=== PATIENT | male | born 1985 | race Caucasian/White ===

== ENCOUNTER 2019-09-04 18:48 | Inpatient (IN) | payer OTHER ==
[~2019-09-04] VITALS: Ht 175.3 cm; Wt 126.1 kg
[2019-09-04 19:43] LABS: Basophils # (auto) 0.1 10 ^3/uL (0-0.2); Basophils % (auto) 0.2 % (0.0-2.0); Eosinophils # (auto) 0 10 ^3/uL (0-0.8); Hematocrit 46.4 % (41.0-53.0); Hemoglobin 16.1 g/dL (13.5-17.5); Lymphocytes # (auto) 0.9 10 ^3/uL (0.4-5.4); Lymphocytes % (auto) 3.3 % (10.0-50.0); Mean Corpuscular Hemoglobin 33.2 pg (28.0-32.0); Mean Corpuscular Hgb Conc. 34.7 g/dL (32.0-36.0); Mean Corpuscular Volume 95.6 fL (80.0-100.0); Monocytes # (auto) 2.3 10 ^3/uL (0-1.3); Monocytes % (auto) 8.6 % (0.0-12.0); Neutrophils % (auto) 87.9 % (37.0-80.0); Nucleated Red Blood Cells % 0.2 %; Platelet Count (auto) 269 10^3/uL (140-450); Red Blood Cells 4.86 10^6/uL (4.5-5.90); Red Cell Distribution Width 14.6 % (11.8-14.3); White Blood Cell 26.2 10^3/uL (4.4-10.8)
[2019-09-04 20:03] LABS: Calcium 9.5 mg/dL (8.5-10.1); Magnesium 2.2 mg/dL (1.6-2.6); Potassium 3.5 mmol/L (3.5-5.1)
[2019-09-04 20:11] LABS: BUN/Creatinine Ratio 9.3; Bilirubin, Total 1.1 mg/dL (0.2-1.0); Total Protein 9.2 g/dL (6.4-8.2)
[2019-09-04] MEDS ORDERED: PIPERACILLIN-TAZOB 3.375GM 100 ML IV ONE (20:30)
[2019-09-04] MEDS ORDERED: VANCOMYCIN PER PHARMACY 0 MG IV SCH (20:30)
[2019-09-04] MEDS ORDERED: SODIUM CHLORIDE 0.9% 1,000 ML IV ONE (20:30)
[2019-09-04] MEDS ORDERED: VANCOMYCIN 1GM/250ML 250 ML IV ONE (21:00)
[2019-09-04 21:09] LABS: INR 1.24 (0.9-1.15); Partial Thromboplastin Time 37.3 sec (23.64-32.05)
[2019-09-04 21:13] LABS: Lactic Acid w/Reflex 5.4 mmol/L (0.4-2.0)
[2019-09-04] MEDS ORDERED: ONDANSETRON HCL 4 MG/2 ML VIAL IV ONE (22:00)
[2019-09-04] MEDS ORDERED: MORPHINE SULFATE 4 MG/ML SYR/VIAL IV ONE (22:00)
[2019-09-04] MEDS: SOD CHL 0.45% 1,000 ML IV SCH (22:33)
[2019-09-04] MEDS ORDERED: METOPROLOL TARTRATE 1MG/1ML-5ML VIAL IV SCH (22:45)
[2019-09-04] MEDS ORDERED: DEXTROSE (50%) 50ML SYRG IV PRN (22:45)
[2019-09-04] MEDS ORDERED: ACETAMINOPHEN 325 MG TAB PO PRN (22:45)
[2019-09-04] MEDS ORDERED: ONDANSETRON HCL 4 MG/2 ML VIAL IV PRN (22:45)
[2019-09-04 22:47] LABS: Urine Bacteria NONE SEEN /hpf (None Seen); Urine Blood 1+ /uL (Negative); Urine Mucus FEW (None Seen); Urine Specific Gravity 1.032 (1.001-1.035); Urine WBC 14 /hpf (0 - 3)
[2019-09-04 22:58] LABS: Amphetamine Screen, Urine NEGATIVE (NEGATIVE); Barbiturate Scree,Urine NEGATIVE (NEGATIVE); Benzodiazephine Screen, Urine NEGATIVE (NEGATIVE); Cannabinoid Screen, Urine POSITIVE (NEGATIVE); Cocaine Screen, Urine NEGATIVE (NEGATIVE); Phencyclidine Screen, Urine NEGATIVE (NEGATIVE)
[2019-09-04 23:06] LABS: Opiate Scree,Urine POSITIVE (NEGATIVE)
[2019-09-05 00:05] VITALS: BP 127/87
[2019-09-05 00:25] VITALS: BP 127/87
[2019-09-05] MEDS ORDERED: LISI-275 PO (01:08)
[2019-09-05] MEDS: HYDROcodone-ACET 5/325MG TAB PO PRN ×2 (01:47→08:52)
[2019-09-05] MEDS: InsuLIN REG 1unit/0.01ml Soln (100units/ml) SC SCH ×6 (04:00→20:00)
[2019-09-05] MEDS: ACCU-CHEK COMFORT CURVE STRIP VI SCH ×6 (04:28→19:49)
[2019-09-05] MEDS: MORPHINE SULFATE 4 MG/ML SYR/VIAL IV PRN ×3 (04:58→18:50)
[2019-09-05 05:00] VITALS: BP 143/96
[2019-09-05 05:57] LABS: Hematocrit 40.3 % (41.0-53.0); Hemoglobin 13.9 g/dL (13.5-17.5); Mean Corpuscular Hemoglobin 33.1 pg (28.0-32.0); Mean Corpuscular Hgb Conc. 34.4 g/dL (32.0-36.0); Mean Corpuscular Volume 96.2 fL (80.0-100.0); Platelet Count (auto) 207 10^3/uL (140-450); Red Blood Cells 4.19 10^6/uL (4.5-5.90); Red Cell Distribution Width 14.9 % (11.8-14.3); White Blood Cell 18.8 10^3/uL (4.4-10.8)
[2019-09-05 06:19] LABS: Potassium 4.1 mmol/L (3.5-5.1)
[2019-09-05 06:21] LABS: Basophils % (manual) 0 (0.0-2.0); Blast Cells 0; Eosinophils % (manual) 0 (0-7); Myelocytes % 0; Promyelocytes % 0; Reactive Lymphocytes 0
[2019-09-05 06:39] LABS: BUN/Creatinine Ratio 12.9
[2019-09-05 07:11] LABS: Band Neutrophils % (manual) 23; Lymphocytes % (manual) 5 (10.0-50.0); Metamyelocytes % 3; Monocytes % (manual) 4 (0-12)
[2019-09-05 07:14] LABS: Calcium 8.4 mg/dL (8.5-10.1)
[2019-09-05 08:00] VITALS: BP 127/87
[2019-09-05] MEDS ORDERED: SODIUM CHLORIDE 0.9% 500 ML IV ONE (10:00)
[2019-09-05] MEDS: LOSARTAN POTASSIUM 50 MG TAB PO SCH (10:29)
[2019-09-05] MEDS: cefTRIAXone 1GM/50ML D5W 50 ML IV SCH (10:29)
[2019-09-05] MEDS: METOPROLOL TARTRATE 25 MG TAB PO SCH ×2 (10:30→21:21)
[2019-09-05] MEDS: VANCOMYCIN 1GM/250ML 250 ML IV SCH ×2 (12:16→19:49)
[2019-09-05] MEDS ORDERED: LIDOCAINE 1% HCL (LOCAL ANESTH.) INJ 20ML MDV ONE (15:06)
[2019-09-05] MEDS ORDERED: fentaNYL CITRATE 100 MCG/2 ML VL ONE ×2 (15:14→16:44)
[2019-09-05] MEDS ORDERED: HYDROmorphone HCL 2 MG/ML VL ONE (15:14)
[2019-09-05] MEDS ORDERED: MIDAZOLAM HCL 1MG/1ML-2 ML VIAL ONE (15:15)
[2019-09-05] MEDS ORDERED: ONDANSETRON HCL 4 MG/2 ML VIAL ONE (15:15)
[2019-09-05] MEDS ORDERED: ROCURONIUM 10MG/ML 10ML VIAL IV ONE (15:15)
[2019-09-05] MEDS ORDERED: PROPOFOL 10 MG/ML 20 ML IV ONE (15:15)
[2019-09-05] MEDS ORDERED: SODIUM CHLORIDE LOCK 10 ML ONE (15:15)
[2019-09-05] MEDS ORDERED: KETAMINE HCL 10 ML ONE (15:15)
[2019-09-05] MEDS ORDERED: SUCCINYLCHOLINE 20mg/ml 100mg/5ml SYRINGE IV ONE (15:43)
[2019-09-05] MEDS ORDERED: NEOSTIGMINE 1 MG/ML INJ (10mg/10ML VIAL) IV ONE (15:43)
[2019-09-05] MEDS ORDERED: GLYCOPYRROLATE 0.2 MG/ML 1ML VIAL IV ONE (15:43)
[2019-09-05] MEDS: SOD CHL 0.45% 1,000 ML IV SCH (15:56)
[2019-09-05] MEDS ORDERED: ceFAZolin 1GM/50ML 50 ML IV ONE (16:03)
[2019-09-05] MEDS ORDERED: MORPHINE SULF(PF) 0.5MG/ML 10ML VIAL ONE (16:49)
[2019-09-05] MEDS ORDERED: LIDOCAINE 2% (LOCAL ANESTH.) PF 5ml SDV ONE (17:01)
[2019-09-05] MEDS ORDERED: HYDROmorphone HCL 2 MG/ML VL IV PRN (17:30)
[2019-09-05] MEDS ORDERED: MORPHINE SULFATE 4 MG/ML SYR/VIAL IV PRN (17:30)
[2019-09-05] MEDS ORDERED: METOCLOPRAMIDE HCL 5MG/ml INJ 2ml VIAL IV PRN (17:30)
[2019-09-05] MEDS ORDERED: fentaNYL CITRATE 100 MCG/2 ML VL IV PRN (17:30)
[2019-09-05] MEDS: ATORVASTATIN 20 MG TAB PO SCH (21:21)
[2019-09-05] MEDS: HYDROcodone-ACET 10/325MG TAB PO PRN (21:22)
[2019-09-05 22:00] VITALS: BP 135/74
[2019-09-06] MEDS: ACCU-CHEK COMFORT CURVE STRIP VI SCH ×3 (00:32→08:21)
[2019-09-06] MEDS: MORPHINE SULFATE 4 MG/ML SYR/VIAL IV PRN ×3 (00:42→19:48)
[2019-09-06] MEDS: InsuLIN REG 1unit/0.01ml Soln (100units/ml) SC SCH ×3 (04:00→08:00)
[2019-09-06] MEDS: VANCOMYCIN 1GM/250ML 250 ML IV SCH ×3 (04:15→19:39)
[2019-09-06 05:00] VITALS: BP 113/63
[2019-09-06 06:21] LABS: Basophils # (auto) 0.1 10 ^3/uL (0-0.2); Basophils % (auto) 0.3 % (0.0-2.0); Eosinophils # (auto) 0 10 ^3/uL (0-0.8); Eosinophils % (auto) 0.1 % (0.0-7.0); Hematocrit 36.7 % (41.0-53.0); Hemoglobin 12.6 g/dL (13.5-17.5); Lymphocytes # (auto) 1.1 10 ^3/uL (0.4-5.4); Lymphocytes % (auto) 6.2 % (10.0-50.0); Mean Corpuscular Hemoglobin 32.8 pg (28.0-32.0); Mean Corpuscular Hgb Conc. 34.2 g/dL (32.0-36.0); Mean Corpuscular Volume 95.7 fL (80.0-100.0); Monocytes # (auto) 1.4 10 ^3/uL (0-1.3); Monocytes % (auto) 8.4 % (0.0-12.0); Neutrophils # (auto) 14.5 10 ^3/uL (1.6-8.6); Platelet Count (auto) 225 10^3/uL (140-450); Red Blood Cells 3.84 10^6/uL (4.5-5.90); White Blood Cell 17.1 10^3/uL (4.4-10.8)
[2019-09-06 06:37] LABS: Calcium 8.2 mg/dL (8.5-10.1); Potassium 3.7 mmol/L (3.5-5.1)
[2019-09-06 06:40] LABS: BUN/Creatinine Ratio 17.3
[2019-09-06] MEDS: SOD CHL 0.45% 1,000 ML IV SCH (07:53)
[2019-09-06 09:00] VITALS: BP 119/66
[2019-09-06] MEDS: cefTRIAXone 1GM/50ML D5W 50 ML IV SCH (09:23)
[2019-09-06] MEDS: LOSARTAN POTASSIUM 50 MG TAB PO SCH (09:23)
[2019-09-06] MEDS: METOPROLOL TARTRATE 25 MG TAB PO SCH ×2 (09:23→22:23)
[2019-09-06] MEDS: HYDROcodone-ACET 10/325MG TAB PO PRN ×2 (09:45→14:33)
[2019-09-06 13:00] VITALS: BP 102/61
[2019-09-06 16:52] VITALS: BP 129/75
[2019-09-06 21:00] VITALS: BP 113/69
[2019-09-06] MEDS: ATORVASTATIN 20 MG TAB PO SCH (22:23)
[2019-09-07] VITALS (7 sets, daily range): BP systolic 116–154; BP diastolic 72–93
[2019-09-07] MEDS: MORPHINE SULFATE 4 MG/ML SYR/VIAL IV PRN ×3 (00:03→08:53)
[2019-09-07] MEDS: VANCOMYCIN 1GM/250ML 250 ML IV SCH ×3 (03:51→21:22)
[2019-09-07] MEDS: METOPROLOL TARTRATE 25 MG TAB PO SCH ×2 (04:51→23:08)
[2019-09-07 05:06] LABS: Hematocrit 39.8 % (41.0-53.0); Hemoglobin 13.6 g/dL (13.5-17.5); Mean Corpuscular Hemoglobin 32.5 pg (28.0-32.0); Mean Corpuscular Hgb Conc. 34.3 g/dL (32.0-36.0); Mean Corpuscular Volume 94.9 fL (80.0-100.0); Platelet Count (auto) 301 10^3/uL (140-450); Red Blood Cells 4.19 10^6/uL (4.5-5.90); Red Cell Distribution Width 15.1 % (11.8-14.3); White Blood Cell 26.4 10^3/uL (4.4-10.8)
[2019-09-07 05:13] LABS: Basophils % (manual) 0 (0.0-2.0); Blast Cells 0; Eosinophils % (manual) 0 (0-7); Metamyelocytes % 0; Myelocytes % 0; Promyelocytes % 0; Reactive Lymphocytes 0
[2019-09-07 05:24] LABS: BUN/Creatinine Ratio 19.4; Potassium 3.3 mmol/L (3.5-5.1)
[2019-09-07 06:40] LABS: Band Neutrophils % (manual) 43; Lymphocytes % (manual) 6 (10.0-50.0); Monocytes % (manual) 7 (0-12)
[2019-09-07] MEDS ORDERED: ceFAZolin 1GM/50ML 50 ML IV ONE (07:28)
[2019-09-07] MEDS ORDERED: MORPHINE SULF(PF) 0.5MG/ML 10ML VIAL ONE (07:28)
[2019-09-07] MEDS: LOSARTAN POTASSIUM 50 MG TAB PO SCH (10:00)
[2019-09-07] MEDS ORDERED: fentaNYL CITRATE 5 ML ONE (10:17)
[2019-09-07] MEDS ORDERED: MIDAZOLAM HCL 1MG/1ML-2 ML VIAL ONE (10:17)
[2019-09-07] MEDS ORDERED: ROCURONIUM 10MG/ML 10ML VIAL IV ONE (10:17)
[2019-09-07] MEDS ORDERED: PROPOFOL 10 MG/ML 20 ML IV ONE (11:31)
[2019-09-07] MEDS ORDERED: hydrALAZINE HCL 20 MG/ML VL IV PRN (11:45)
[2019-09-07] MEDS ORDERED: ONDANSETRON HCL 4 MG/2 ML VIAL IV PRN (11:45)
[2019-09-07] MEDS ORDERED: fentaNYL CITRATE 100 MCG/2 ML VL IV PRN (11:45)
[2019-09-07] MEDS ORDERED: ePHEDrine SULFATE 50 MG/ML AMP IV PRN (11:45)
[2019-09-07] MEDS ORDERED: MORPHINE SULF INJ 2 MG/ML SYRINGE 1ML IV PRN ×2 (12:00→12:45)
[2019-09-07] MEDS ORDERED: FOLIC ACID 1 MG in D5W 5% 50 ML IV ONE (12:45)
[2019-09-07] MEDS ORDERED: THIAMINE 100mg/ml INJ (200mg/2ml VIAL) IV ONE (12:45)
[2019-09-07] MEDS: cefTRIAXone 1GM/50ML D5W 50 ML IV SCH (13:10)
[2019-09-07] MEDS: HYDROcodone-ACET 10/325MG TAB PO PRN (13:59)
[2019-09-07] MEDS: SOD CHL 0.9%/ KCL 20MEQ 1,000 ML IV SCH (14:19)
[2019-09-07] MEDS ORDERED: HYDROmorphone HCL 2 MG/ML VL IV PRN (14:45)
[2019-09-07] MEDS ORDERED: THIAMINE HCL 100 MG TAB PO ONE (14:45)
[2019-09-07] MEDS: HYDROmorphone HCL 2 MG/ML VL IV PRN ×2 (19:11→21:22)
[2019-09-07] MEDS: ATORVASTATIN 20 MG TAB PO SCH (21:22)
[2019-09-07] MEDS: chlordiazePOXIDE HCL 25 MG CAP PO PRN (21:22)
[2019-09-08] MEDS: HYDROmorphone HCL 2 MG/ML VL IV PRN ×10 (01:32→23:07)
[2019-09-08] MEDS: SOD CHL 0.9%/ KCL 20MEQ 1,000 ML IV SCH ×2 (02:05→15:25)
[2019-09-08 05:00] VITALS: BP 132/78
[2019-09-08] MEDS: VANCOMYCIN 1GM/250ML 250 ML IV SCH ×3 (05:00→21:10)
[2019-09-08 05:40] LABS: Hematocrit 35.9 % (41.0-53.0); Hemoglobin 12.4 g/dL (13.5-17.5); Mean Corpuscular Hgb Conc. 34.6 g/dL (32.0-36.0); Mean Corpuscular Volume 95.4 fL (80.0-100.0); Platelet Count (auto) 306 10^3/uL (140-450); Red Blood Cells 3.76 10^6/uL (4.5-5.90); Red Cell Distribution Width 15.2 % (11.8-14.3); White Blood Cell 25.3 10^3/uL (4.4-10.8)
[2019-09-08 05:53] LABS: Basophils % (manual) 0 (0.0-2.0); Blast Cells 0; Eosinophils % (manual) 0 (0-7); Metamyelocytes % 0; Myelocytes % 0; Promyelocytes % 0; Reactive Lymphocytes 0
[2019-09-08 05:57] LABS: Potassium 3.4 mmol/L (3.5-5.1)
[2019-09-08 06:05] LABS: BUN/Creatinine Ratio 14.9; Calcium 7.8 mg/dL (8.5-10.1)
[2019-09-08 06:45] LABS: Band Neutrophils % (manual) 38; Lymphocytes % (manual) 11 (10.0-50.0); Monocytes % (manual) 10 (0-12)
[2019-09-08 09:00] VITALS: BP 131/89
[2019-09-08] MEDS: LOSARTAN POTASSIUM 50 MG TAB PO SCH (10:22)
[2019-09-08] MEDS: cefTRIAXone 1GM/50ML D5W 50 ML IV SCH (10:22)
[2019-09-08] MEDS: METOPROLOL TARTRATE 25 MG TAB PO SCH ×2 (10:23→21:11)
[2019-09-08] MEDS: THIAMINE 100mg/ml INJ (200mg/2ml VIAL) IV SCH (10:23)
[2019-09-08] MEDS: FOLIC ACID 1 MG in D5W 5% 50 ML IV SCH (11:14)
[2019-09-08] MEDS ORDERED: LORazepam 2MG/ML-1ML VIAL IV ONE (11:30)
[2019-09-08] MEDS ORDERED: POTASSIUM CHL 20 Meq TABLET PO ONE (11:30)
[2019-09-08 13:00] VITALS: BP 141/72
[2019-09-08] MEDS ORDERED: GADOTERIDOL 279.3mg/mL 20ml Vial IV ONE (13:37)
[2019-09-08] MEDS ORDERED: SUCCINYLCHOLINE CHLORIDE 20 MG/ML 10ML VIAL IV ONE (16:22)
[2019-09-08] MEDS ORDERED: fentaNYL CITRATE 5 ML ONE (16:26)
[2019-09-08] MEDS ORDERED: ROCURONIUM 10MG/ML 10ML VIAL IV ONE (16:26)
[2019-09-08] MEDS ORDERED: PROPOFOL 10 MG/ML 20 ML IV ONE (16:27)
[2019-09-08] MEDS ORDERED: hydrALAZINE HCL 20 MG/ML VL IV PRN (17:30)
[2019-09-08] MEDS ORDERED: ONDANSETRON HCL 4 MG/2 ML VIAL IV PRN (17:30)
[2019-09-08] MEDS ORDERED: ePHEDrine SULFATE 50 MG/ML AMP IV PRN (17:30)
[2019-09-08 19:45] VITALS: BP 155/82
[2019-09-08] MEDS: HYDROcodone-ACET 10/325MG TAB PO PRN (20:02)
[2019-09-08 22:00] VITALS: BP 130/86
[2019-09-08] MEDS: chlordiazePOXIDE HCL 25 MG CAP PO PRN (22:17)
[2019-09-09] MEDS: HYDROmorphone HCL 2 MG/ML VL IV PRN ×10 (02:01→23:30)
[2019-09-09] MEDS: SOD CHL 0.9%/ KCL 20MEQ 1,000 ML IV SCH ×2 (02:01→18:05)
[2019-09-09] MEDS: VANCOMYCIN 1GM/250ML 250 ML IV SCH (05:21)
[2019-09-09 05:49] VITALS: BP 148/76
[2019-09-09 06:33] LABS: Hematocrit 33.8 % (41.0-53.0); Hemoglobin 11.5 g/dL (13.5-17.5); Mean Corpuscular Hemoglobin 32.3 pg (28.0-32.0); Mean Corpuscular Hgb Conc. 34.1 g/dL (32.0-36.0); Mean Corpuscular Volume 94.7 fL (80.0-100.0); Platelet Count (auto) 329 10^3/uL (140-450); Red Blood Cells 3.57 10^6/uL (4.5-5.90); Red Cell Distribution Width 15.7 % (11.8-14.3); White Blood Cell 21.3 10^3/uL (4.4-10.8)
[2019-09-09 06:48] LABS: Basophils % (manual) 0 (0.0-2.0); Blast Cells 0; Eosinophils % (manual) 0 (0-7); Metamyelocytes % 0; Myelocytes % 0; Promyelocytes % 0; Reactive Lymphocytes 0
[2019-09-09 06:50] LABS: BUN/Creatinine Ratio 15.2; Calcium 8.4 mg/dL (8.5-10.1); Potassium 3.6 mmol/L (3.5-5.1)
[2019-09-09 07:34] LABS: Band Neutrophils % (manual) 11; Lymphocytes % (manual) 12 (10.0-50.0); Monocytes % (manual) 12 (0-12)
[2019-09-09 08:58] VITALS: BP 135/77
[2019-09-09] MEDS: METOPROLOL TARTRATE 25 MG TAB PO SCH ×2 (09:34→22:21)
[2019-09-09] MEDS: cefTRIAXone 1GM/50ML D5W 50 ML IV SCH (09:34)
[2019-09-09] MEDS: THIAMINE 100mg/ml INJ (200mg/2ml VIAL) IV SCH (09:35)
[2019-09-09] MEDS: LOSARTAN POTASSIUM 50 MG TAB PO SCH (09:35)
[2019-09-09] MEDS: FOLIC ACID 1 MG in D5W 5% 50 ML IV SCH (11:03)
[2019-09-09] MEDS ORDERED: CLINDAMYCIN 900MG IV 50 ML IV ONE (12:15)
[2019-09-09] MEDS: ceFAZolin 1GM/50ML 50 ML IV SCH ×2 (12:24→17:33)
[2019-09-09 13:00] VITALS: BP 109/74
[2019-09-09] MEDS: CLINDAMYCIN 900MG IV 50 ML IV SCH ×2 (14:11→22:10)
[2019-09-09] MEDS: HYDROcodone-ACET 10/325MG TAB PO PRN ×2 (16:13→22:11)
[2019-09-09 16:38] VITALS: BP 131/64
[2019-09-09 22:00] VITALS: BP 100/80
[2019-09-10] VITALS (7 sets, daily range): BP systolic 111–150; BP diastolic 56–84
[2019-09-10] MEDS: ceFAZolin 1GM/50ML 50 ML IV SCH ×5 (00:30→23:51)
[2019-09-10] MEDS: HYDROmorphone HCL 2 MG/ML VL IV PRN ×12 (02:43→20:36)
[2019-09-10 06:01] LABS: Basophils # (auto) 0.1 10 ^3/uL (0-0.2); Basophils % (auto) 0.4 % (0.0-2.0); Eosinophils # (auto) 0.2 10 ^3/uL (0-0.8); Eosinophils % (auto) 0.8 % (0.0-7.0); Hematocrit 34.2 % (41.0-53.0); Hemoglobin 11.9 g/dL (13.5-17.5); Lymphocytes # (auto) 2.5 10 ^3/uL (0.4-5.4); Lymphocytes % (auto) 11.3 % (10.0-50.0); Mean Corpuscular Hemoglobin 33.1 pg (28.0-32.0); Mean Corpuscular Hgb Conc. 34.9 g/dL (32.0-36.0); Mean Corpuscular Volume 94.8 fL (80.0-100.0); Monocytes % (auto) 8.8 % (0.0-12.0); Neutrophils # (auto) 17.7 10 ^3/uL (1.6-8.6); Neutrophils % (auto) 78.7 % (37.0-80.0); Nucleated Red Blood Cells % 0.2 %; Platelet Count (auto) 400 10^3/uL (140-450); Red Blood Cells 3.61 10^6/uL (4.5-5.90); Red Cell Distribution Width 15.5 % (11.8-14.3); White Blood Cell 22.5 10^3/uL (4.4-10.8)
[2019-09-10] MEDS: SOD CHL 0.9%/ KCL 20MEQ 1,000 ML IV SCH (06:04)
[2019-09-10] MEDS: CLINDAMYCIN 900MG IV 50 ML IV SCH ×3 (06:04→21:27)
[2019-09-10 06:20] LABS: Potassium 3.5 mmol/L (3.5-5.1)
[2019-09-10 06:33] LABS: BUN/Creatinine Ratio 12.6; Calcium 8.4 mg/dL (8.5-10.1)
[2019-09-10] MEDS ORDERED: PROPOFOL 10 MG/ML 20 ML IV ONE (08:38)
[2019-09-10] MEDS ORDERED: DexAMETHasone SOD PHOS 10MG/1ML VIAL INJ ONE (08:38)
[2019-09-10] MEDS ORDERED: LIDOCAINE 2% (LOCAL ANESTH.) PF 5ml SDV ONE (08:38)
[2019-09-10] MEDS ORDERED: ONDANSETRON HCL 4 MG/2 ML VIAL ONE (08:38)
[2019-09-10] MEDS ORDERED: MIDAZOLAM HCL 1MG/1ML-2 ML VIAL ONE (08:38)
[2019-09-10] MEDS ORDERED: fentaNYL CITRATE 100 MCG/2 ML VL ONE (08:39)
[2019-09-10] MEDS ORDERED: ceFAZolin 1GM/50ML 50 ML IV ONE ×2 (08:47→08:48)
[2019-09-10] MEDS ORDERED: KETOROLAC TROMETH 60MG/2ML VIAL ONE (09:59)
[2019-09-10] MEDS ORDERED: ONDANSETRON HCL 4 MG/2 ML VIAL IV PRN (10:30)
[2019-09-10] MEDS ORDERED: METOCLOPRAMIDE HCL 5MG/ml INJ 2ml VIAL IV PRN (10:30)
[2019-09-10] MEDS ORDERED: ePHEDrine SULFATE 50 MG/ML AMP IV PRN (10:30)
[2019-09-10] MEDS ORDERED: LABETALOL HCL 5 MG/ML 4ML SYRINGE IV PRN (10:30)
[2019-09-10] MEDS ORDERED: hydrALAZINE HCL 20 MG/ML VL IV PRN (10:30)
[2019-09-10] MEDS ORDERED: NALOXONE HCL 0.4 MG/ML VIAL IV PRN (10:30)
[2019-09-10] MEDS: OXYCODONE W/ ACETAMINOPHEN 5/325MG TABLET PO PRN ×2 (12:54→17:11)
[2019-09-10] MEDS: THIAMINE HCL 100 MG TAB PO SCH (12:55)
[2019-09-10] MEDS: LOSARTAN POTASSIUM 50 MG TAB PO SCH (12:57)
[2019-09-10] MEDS: FLORASTOR (S. BOULARDII) 250 MG CAP PO SCH (12:57)
[2019-09-10] MEDS: METOPROLOL TARTRATE 25 MG TAB PO SCH ×2 (12:58→21:28)
[2019-09-10] MEDS: FOLIC ACID 1 MG in D5W 5% 50 ML IV SCH (13:11)
[2019-09-10] MEDS: DOCUSATE SOD 100 MG CAP PO PRN (20:37)
[2019-09-11] VITALS (7 sets, daily range): BP systolic 87–113; BP diastolic 48–66
[2019-09-11] MEDS ORDERED: SODIUM CHLORIDE 0.9% 2,000 ML IV ONE (00:15)
[2019-09-11] MEDS: OXYCODONE W/ ACETAMINOPHEN 5/325MG TABLET PO PRN (02:38)
[2019-09-11] MEDS ORDERED: SODIUM CHLORIDE 0.9% 1,000 ML IV ONE (05:15)
[2019-09-11] MEDS: ceFAZolin 1GM/50ML 50 ML IV SCH ×3 (05:40→17:59)
[2019-09-11] MEDS: CLINDAMYCIN 900MG IV 50 ML IV SCH ×3 (06:18→22:08)
[2019-09-11 06:44] LABS: Hematocrit 27.7 % (41.0-53.0); Hemoglobin 9.4 g/dL (13.5-17.5); Mean Corpuscular Hemoglobin 32.1 pg (28.0-32.0); Mean Corpuscular Hgb Conc. 33.8 g/dL (32.0-36.0); Mean Corpuscular Volume 94.9 fL (80.0-100.0); Platelet Count (auto) 399 10^3/uL (140-450); Red Blood Cells 2.92 10^6/uL (4.5-5.90); Red Cell Distribution Width 15.4 % (11.8-14.3)
[2019-09-11 07:01] LABS: White Blood Cell 40.3 10^3/uL (4.4-10.8)
[2019-09-11 07:03] LABS: Basophils % (manual) 0 (0.0-2.0); Blast Cells 0; Eosinophils % (manual) 0 (0-7); Metamyelocytes % 0; Myelocytes % 0; Promyelocytes % 0; Reactive Lymphocytes 0
[2019-09-11] MEDS: HYDROmorphone HCL 2 MG/ML VL IV PRN ×8 (07:04→23:05)
[2019-09-11 08:51] LABS: Band Neutrophils % (manual) 20; Lymphocytes % (manual) 4 (10.0-50.0); Monocytes % (manual) 1 (0-12)
[2019-09-11] MEDS: THIAMINE HCL 100 MG TAB PO SCH (09:15)
[2019-09-11] MEDS: FLORASTOR (S. BOULARDII) 250 MG CAP PO SCH (09:15)
[2019-09-11] MEDS: LOSARTAN POTASSIUM 50 MG TAB PO SCH (09:17)
[2019-09-11] MEDS: METOPROLOL TARTRATE 25 MG TAB PO SCH ×2 (09:18→22:09)
[2019-09-11 10:05] LABS: Albumin 1.5 g/dL (3.4-5.0); Calcium 7.2 mg/dL (8.5-10.1); Potassium 4.5 mmol/L (3.5-5.1)
[2019-09-11 10:08] LABS: BUN/Creatinine Ratio 13.4; Bilirubin, Total 1.3 mg/dL (0.2-1.0); Total Protein 5.8 g/dL (6.4-8.2)
[2019-09-11] MEDS: FOLIC ACID 1 MG in D5W 5% 50 ML IV SCH (11:20)
[2019-09-11] MEDS: SODIUM CHLORIDE 0.9% 1,000 ML IV SCH (14:23)
[2019-09-11 17:30] LABS: Hematocrit 28.6 % (41.0-53.0); Hemoglobin 9.6 g/dL (13.5-17.5); Mean Corpuscular Hemoglobin 31.9 pg (28.0-32.0); Mean Corpuscular Hgb Conc. 33.4 g/dL (32.0-36.0); Mean Corpuscular Volume 95.4 fL (80.0-100.0); Platelet Count (auto) 442 10^3/uL (140-450); Red Cell Distribution Width 16.1 % (11.8-14.3)
[2019-09-11 17:34] LABS: White Blood Cell 37.9 10^3/uL (4.4-10.8)
[2019-09-11 17:35] LABS: Basophils % (manual) 0 (0.0-2.0); Blast Cells 0; Eosinophils % (manual) 0 (0-7); Myelocytes % 0; Promyelocytes % 0; Reactive Lymphocytes 0
[2019-09-11 17:49] LABS: BUN/Creatinine Ratio 19.1; Calcium 7.1 mg/dL (8.5-10.1); Potassium 3.7 mmol/L (3.5-5.1)
[2019-09-11 18:27] LABS: Band Neutrophils % (manual) 11; Lymphocytes % (manual) 13 (10.0-50.0); Metamyelocytes % 2; Monocytes % (manual) 1 (0-12)
[2019-09-12] MEDS: ceFAZolin 1GM/50ML 50 ML IV SCH ×4 (00:17→18:40)
[2019-09-12] MEDS: SODIUM CHLORIDE 0.9% 1,000 ML IV SCH ×3 (00:29→21:45)
[2019-09-12] MEDS: HYDROmorphone HCL 2 MG/ML VL IV PRN ×7 (02:01→20:03)
[2019-09-12 05:00] VITALS: BP 112/71
[2019-09-12] MEDS: CLINDAMYCIN 900MG IV 50 ML IV SCH ×3 (05:40→21:14)
[2019-09-12 06:28] LABS: Hematocrit 25.6 % (41.0-53.0); Hemoglobin 8.8 g/dL (13.5-17.5); Mean Corpuscular Hemoglobin 32.7 pg (28.0-32.0); Mean Corpuscular Hgb Conc. 34.5 g/dL (32.0-36.0); Mean Corpuscular Volume 94.8 fL (80.0-100.0); Platelet Count (auto) 418 10^3/uL (140-450); Red Cell Distribution Width 15.5 % (11.8-14.3); White Blood Cell 29.7 10^3/uL (4.4-10.8)
[2019-09-12 06:29] LABS: Basophils % (manual) 0 (0.0-2.0); Blast Cells 0; Metamyelocytes % 0; Myelocytes % 0; Promyelocytes % 0; Reactive Lymphocytes 0
[2019-09-12 06:47] LABS: Potassium 3.5 mmol/L (3.5-5.1)
[2019-09-12 06:54] LABS: Albumin 1.5 g/dL (3.4-5.0); BUN/Creatinine Ratio 21.7; Bilirubin, Total 0.6 mg/dL (0.2-1.0); Total Protein 6.1 g/dL (6.4-8.2)
[2019-09-12 07:32] LABS: Band Neutrophils % (manual) 2; Eosinophils % (manual) 1 (0-7); Lymphocytes % (manual) 5 (10.0-50.0); Monocytes % (manual) 4 (0-12)
[2019-09-12 08:00] VITALS: BP 109/62
[2019-09-12 08:50] VITALS: BP 109/62
[2019-09-12] MEDS: LOSARTAN POTASSIUM 50 MG TAB PO SCH (10:00)
[2019-09-12] MEDS: METOPROLOL TARTRATE 25 MG TAB PO SCH (10:00)
[2019-09-12] MEDS: FLORASTOR (S. BOULARDII) 250 MG CAP PO SCH (10:32)
[2019-09-12] MEDS: FOLIC ACID 1 MG in D5W 5% 50 ML IV SCH (10:33)
[2019-09-12] MEDS: THIAMINE HCL 100 MG TAB PO SCH (10:33)
[2019-09-12 12:54] VITALS: BP 131/72
[2019-09-12 17:00] VITALS: BP 122/71
[2019-09-12 21:01] VITALS: BP 117/68
[2019-09-12] MEDS: OXYCODONE W/ ACETAMINOPHEN 5/325MG TABLET PO PRN (21:22)
[2019-09-13] MEDS: HYDROmorphone HCL 2 MG/ML VL IV PRN ×9 (00:06→23:21)
[2019-09-13] MEDS: ceFAZolin 1GM/50ML 50 ML IV SCH ×4 (00:06→18:04)
[2019-09-13 05:05] VITALS: BP 127/64
[2019-09-13 05:40] LABS: Eosinophils # (auto) 0.1 10 ^3/uL (0-0.8); Eosinophils % (auto) 0.4 % (0.0-7.0); Neutrophils # (auto) 15.6 10 ^3/uL (1.6-8.6)
[2019-09-13 05:43] LABS: Basophils # (auto) 0.1 10 ^3/uL (0-0.2); Basophils % (auto) 0.3 % (0.0-2.0); Hematocrit 26.1 % (41.0-53.0); Lymphocytes # (auto) 2.1 10 ^3/uL (0.4-5.4); Lymphocytes % (auto) 11.3 % (10.0-50.0); Mean Corpuscular Hemoglobin 32.7 pg (28.0-32.0); Mean Corpuscular Hgb Conc. 34.6 g/dL (32.0-36.0); Mean Corpuscular Volume 94.6 fL (80.0-100.0); Monocytes # (auto) 0.9 10 ^3/uL (0-1.3); Monocytes % (auto) 4.8 % (0.0-12.0); Neutrophils % (auto) 83.2 % (37.0-80.0); Nucleated Red Blood Cells % 0.1 %; Platelet Count (auto) 479 10^3/uL (140-450); Red Blood Cells 2.76 10^6/uL (4.5-5.90); Red Cell Distribution Width 15.8 % (11.8-14.3); White Blood Cell 18.8 10^3/uL (4.4-10.8)
[2019-09-13] MEDS: SODIUM CHLORIDE 0.9% 1,000 ML IV SCH ×2 (05:43→14:37)
[2019-09-13 05:58] LABS: Potassium 4.1 mmol/L (3.5-5.1)
[2019-09-13 06:05] LABS: Albumin 1.5 g/dL (3.4-5.0); BUN/Creatinine Ratio 13.6; Bilirubin, Total 0.5 mg/dL (0.2-1.0); Calcium 7.2 mg/dL (8.5-10.1); Total Protein 6.2 g/dL (6.4-8.2)
[2019-09-13] MEDS: CLINDAMYCIN 900MG IV 50 ML IV SCH (06:22)
[2019-09-13 08:30] VITALS: BP 137/83
[2019-09-13] MEDS: FOLIC ACID 1 MG in D5W 5% 50 ML IV SCH (09:55)
[2019-09-13] MEDS: THIAMINE HCL 100 MG TAB PO SCH (09:55)
[2019-09-13] MEDS: FLORASTOR (S. BOULARDII) 250 MG CAP PO SCH (09:55)
[2019-09-13 13:11] VITALS: BP 144/84
[2019-09-13] MEDS: CLINDAMYCIN 600MG IV 50 ML IV SCH ×2 (14:37→22:16)
[2019-09-13] MEDS: OXYCODONE W/ ACETAMINOPHEN 5/325MG TABLET PO PRN (14:51)
[2019-09-13 16:39] VITALS: BP 131/72
[2019-09-13 22:00] VITALS: BP 135/83
[2019-09-14] MEDS: ceFAZolin 1GM/50ML 50 ML IV SCH ×3 (00:31→11:26)
[2019-09-14] MEDS: OXYCODONE W/ ACETAMINOPHEN 5/325MG TABLET PO PRN ×2 (01:11→14:22)
[2019-09-14] MEDS: SODIUM CHLORIDE 0.9% 1,000 ML IV SCH (02:46)
[2019-09-14] MEDS: HYDROmorphone HCL 2 MG/ML VL IV PRN ×7 (02:47→22:25)
[2019-09-14 05:00] VITALS: BP 126/82
[2019-09-14] MEDS: CLINDAMYCIN 600MG IV 50 ML IV SCH ×2 (06:25→13:26)
[2019-09-14 06:41] LABS: Hematocrit 27.9 % (41.0-53.0); Hemoglobin 9.5 g/dL (13.5-17.5); Red Cell Distribution Width 15.7 % (11.8-14.3)
[2019-09-14 06:42] LABS: Mean Corpuscular Hemoglobin 32.4 pg (28.0-32.0); Mean Corpuscular Hgb Conc. 34.1 g/dL (32.0-36.0); Mean Corpuscular Volume 94.9 fL (80.0-100.0); Platelet Count (auto) 625 10^3/uL (140-450); Red Blood Cells 2.94 10^6/uL (4.5-5.90); White Blood Cell 15.3 10^3/uL (4.4-10.8)
[2019-09-14 06:45] LABS: Basophils % (manual) 0 (0.0-2.0); Metamyelocytes % 0; Promyelocytes % 0
[2019-09-14 06:46] LABS: Blast Cells 0; Reactive Lymphocytes 0
[2019-09-14 06:55] LABS: Albumin 1.8 g/dL (3.4-5.0); Calcium 7.6 mg/dL (8.5-10.1); Potassium 4.1 mmol/L (3.5-5.1)
[2019-09-14 06:59] LABS: BUN/Creatinine Ratio 7.1; Bilirubin, Total 0.5 mg/dL (0.2-1.0); Total Protein 6.9 g/dL (6.4-8.2)
[2019-09-14 07:25] LABS: Band Neutrophils % (manual) 1; Eosinophils % (manual) 2 (0-7); Lymphocytes % (manual) 13 (10.0-50.0); Monocytes % (manual) 7 (0-12); Myelocytes % 1
[2019-09-14 08:00] VITALS: BP 144/75
[2019-09-14 09:18] VITALS: BP 144/75
[2019-09-14] MEDS: FOLIC ACID 1 MG TAB PO SCH (09:41)
[2019-09-14] MEDS: FLORASTOR (S. BOULARDII) 250 MG CAP PO SCH (09:41)
[2019-09-14] MEDS: DOCUSATE SOD 100 MG CAP PO PRN (09:41)
[2019-09-14] MEDS: THIAMINE HCL 100 MG TAB PO SCH (09:41)
[2019-09-14] MEDS ORDERED: POTASSIUM CHL 20 Meq TABLET PO ONE (13:45)
[2019-09-14] MEDS ORDERED: FUROSEMIDE 20 MG/2 ML VIAL IV ONE (13:45)
[2019-09-14 14:16] VITALS: BP 134/80
[2019-09-14] MEDS: CEPHALEXIN 250 MG CAP PO SCH ×2 (14:21→22:33)
[2019-09-14] MEDS: CLINDAMYCIN HCL 150 MG CAP PO SCH ×2 (14:21→22:33)
[2019-09-14 22:13] VITALS: BP 137/85
[2019-09-15] MEDS: OXYCODONE W/ ACETAMINOPHEN 5/325MG TABLET PO PRN ×3 (00:13→10:35)
[2019-09-15] MEDS: HYDROmorphone HCL 2 MG/ML VL IV PRN ×7 (01:35→20:52)
[2019-09-15 05:00] VITALS: BP 135/84
[2019-09-15] MEDS: CEPHALEXIN 250 MG CAP PO SCH (05:43)
[2019-09-15] MEDS: CLINDAMYCIN HCL 150 MG CAP PO SCH ×3 (05:43→21:03)
[2019-09-15 07:32] LABS: White Blood Cell 16.2 10^3/uL (4.4-10.8)
[2019-09-15 07:37] LABS: Hematocrit 27.8 % (41.0-53.0); Hemoglobin 9.4 g/dL (13.5-17.5); Mean Corpuscular Hemoglobin 31.9 pg (28.0-32.0); Mean Corpuscular Hgb Conc. 33.7 g/dL (32.0-36.0); Mean Corpuscular Volume 94.7 fL (80.0-100.0); Platelet Count (auto) 700 10^3/uL (140-450); Red Blood Cells 2.94 10^6/uL (4.5-5.90); Red Cell Distribution Width 15.8 % (11.8-14.3)
[2019-09-15 07:42] LABS: Basophils % (manual) 0 (0.0-2.0); Blast Cells 0; Metamyelocytes % 0; Promyelocytes % 0; Reactive Lymphocytes 0
[2019-09-15 07:54] LABS: Calcium 8.4 mg/dL (8.5-10.1); Potassium 4.3 mmol/L (3.5-5.1)
[2019-09-15 07:58] LABS: Bilirubin, Total 0.6 mg/dL (0.2-1.0); Total Protein 7.2 g/dL (6.4-8.2)
[2019-09-15 08:08] LABS: Band Neutrophils % (manual) 1; Eosinophils % (manual) 2 (0-7); Lymphocytes % (manual) 25 (10.0-50.0); Monocytes % (manual) 7 (0-12); Myelocytes % 1
[2019-09-15 09:00] VITALS: BP 133/89
[2019-09-15] MEDS: FOLIC ACID 1 MG TAB PO SCH (10:34)
[2019-09-15] MEDS: THIAMINE HCL 100 MG TAB PO SCH (10:34)
[2019-09-15] MEDS: FLORASTOR (S. BOULARDII) 250 MG CAP PO SCH (10:34)
[2019-09-15] MEDS: DOCUSATE SOD 100 MG CAP PO PRN (10:36)
[2019-09-15] MEDS ORDERED: FUROSEMIDE 40 MG/4 ML VIAL IV ONE (11:45)
[2019-09-15] MEDS ORDERED: POTASSIUM CHL 20 Meq TABLET PO ONE (11:45)
[2019-09-15 13:00] VITALS: BP 143/83
[2019-09-15] MEDS ORDERED: FUROSEMIDE 100 MG/10ML VIAL IV ONE (13:45)
[2019-09-15 17:00] VITALS: BP 137/74
[2019-09-15 18:34] LABS: Eosinophils # (auto) 0.1 10 ^3/uL (0-0.8); Eosinophils % (auto) 0.5 % (0.0-7.0); Mean Corpuscular Volume 95.9 fL (80.0-100.0)
[2019-09-15 18:36] LABS: Basophils # (auto) 0.2 10 ^3/uL (0-0.2); Basophils % (auto) 1.1 % (0.0-2.0); Hematocrit 29.7 % (41.0-53.0); Hemoglobin 9.8 g/dL (13.5-17.5); Lymphocytes # (auto) 3.2 10 ^3/uL (0.4-5.4); Mean Corpuscular Hemoglobin 31.5 pg (28.0-32.0); Mean Corpuscular Hgb Conc. 32.9 g/dL (32.0-36.0); Monocytes # (auto) 1.5 10 ^3/uL (0-1.3); Neutrophils # (auto) 13.7 10 ^3/uL (1.6-8.6); Neutrophils % (auto) 73.4 % (37.0-80.0); Platelet Count (auto) 746 10^3/uL (140-450); White Blood Cell 18.6 10^3/uL (4.4-10.8)
[2019-09-15 22:07] VITALS: BP 138/79
[2019-09-16] MEDS: HYDROmorphone HCL 2 MG/ML VL IV PRN ×5 (00:23→14:48)
[2019-09-16] MEDS: HYDROcodone-ACET 5/325MG TAB PO PRN ×2 (02:11→13:58)
[2019-09-16 05:30] VITALS: BP 149/88
[2019-09-16 06:19] LABS: Basophils # (auto) 0.1 10 ^3/uL (0-0.2); Basophils % (auto) 0.7 % (0.0-2.0); Eosinophils # (auto) 0.1 10 ^3/uL (0-0.8); Eosinophils % (auto) 0.4 % (0.0-7.0); Hematocrit 29.5 % (41.0-53.0); Hemoglobin 10.1 g/dL (13.5-17.5); Lymphocytes # (auto) 2.6 10 ^3/uL (0.4-5.4); Lymphocytes % (auto) 16.2 % (10.0-50.0); Mean Corpuscular Hgb Conc. 34.4 g/dL (32.0-36.0); Mean Corpuscular Volume 95.9 fL (80.0-100.0); Monocytes # (auto) 1.2 10 ^3/uL (0-1.3); Monocytes % (auto) 7.4 % (0.0-12.0); Neutrophils # (auto) 12.2 10 ^3/uL (1.6-8.6); Neutrophils % (auto) 75.3 % (37.0-80.0); Nucleated Red Blood Cells % 0.1 %; Red Blood Cells 3.07 10^6/uL (4.5-5.90); White Blood Cell 16.2 10^3/uL (4.4-10.8)
[2019-09-16 06:24] LABS: Platelet Count (auto) 790 10^3/uL (140-450)
[2019-09-16] MEDS: CLINDAMYCIN HCL 150 MG CAP PO SCH ×2 (06:35→14:45)
[2019-09-16 06:37] LABS: Potassium 4.2 mmol/L (3.5-5.1)
[2019-09-16 06:48] LABS: Albumin 2.2 g/dL (3.4-5.0); BUN/Creatinine Ratio 7.5; Calcium 9.2 mg/dL (8.5-10.1)
[2019-09-16 06:51] LABS: Bilirubin, Total 0.5 mg/dL (0.2-1.0); Total Protein 7.4 g/dL (6.4-8.2)
[2019-09-16 09:00] VITALS: BP 129/77
[2019-09-16] MEDS ORDERED: levoFLOXacin 500 MG TAB PO SCH (10:00)
[2019-09-16] MEDS: FOLIC ACID 1 MG TAB PO SCH (10:19)
[2019-09-16] MEDS: THIAMINE HCL 100 MG TAB PO SCH (10:19)
[2019-09-16] MEDS: FLORASTOR (S. BOULARDII) 250 MG CAP PO SCH (10:20)
[2019-09-16 13:00] VITALS: BP 132/85
[2019-09-16 14:09] VITALS: BP 133/89
== END 2019-09-16 16:25 | disposition home or self-care (01) | DRG 853 ==
LOC: EDBD 18:48 → ER 18:48 → TELE 18:49 → TELE-EAST 23:25 → TELE-WESTW 09-05 22:29 → WEST WING 09-13 14:03
PROVIDERS: ADMIT Hospitalist; ATTEND Internal Medicine
PROC: 0SBC4ZX Excision of Right Knee Joint, Percutaneous Endoscopic Approach, Diagnostic (ICD-10-PCS; principal; 2019-09-05 15:53)
PROC: 0KBQ0ZZ Excision of Right Upper Leg Muscle, Open Approach (ICD-10-PCS; 2019-09-08)
PROC: 0S9C4ZX Drainage of Right Knee Joint, Percutaneous Endoscopic Approach, Diagnostic (ICD-10-PCS; 2019-09-10)
DX: A41.9 Sepsis, unspecified organism (principal); N17.0 Acute kidney failure with tubular necrosis; M00.9 Pyogenic arthritis, unspecified; E87.1 Hypo-osmolality and hyponatremia; E44.0 Moderate protein-calorie malnutrition; L03.115 Cellulitis of right lower limb; Z68.41 Body mass index [BMI] 40.0-44.9, adult; F10.10 Alcohol abuse, uncomplicated; K76.0 Fatty (change of) liver, not elsewhere classified; R73.9 Hyperglycemia, unspecified; M25.561 Pain in right knee; E66.01 Morbid (severe) obesity due to excess calories; M65.9 Synovitis and tenosynovitis, unspecified; N18.9 Chronic kidney disease, unspecified; I12.9 Hypertensive chronic kidney disease with stage 1 through stage 4 chronic kidney disease, or unspecified chronic kidney disease; M60.9 Myositis, unspecified; Z79.899 Other long term (current) drug therapy; Z90.49 Acquired absence of other specified parts of digestive tract; Z79.4 Long term (current) use of insulin
CPT/HCPCS: 36415; 71045; 73700; 73718; 74176; 80048; 80053; 80061; 80202; 80307; 81001; 82962; 83036; 83605; 83735; 83880; 84443; 84484; 84550; 85007; 85025; 85027; 85610; 85652; 85730; 86141; 86850; 86900; 86901; 87040; 87070; 87075; 87205; 93005; 93306; 93970; 96365; 96367; 96375; 97110; 97116; 97163; 97530; G0378; J0330; J0690; J0696; J1100; J1885; J2001; J2250; J2405; J2543; J2704; J3490; J7060

== ENCOUNTER 2024-07-16 11:39 | Emergency (ER) | payer OTHER ==
[~2024-07-16] VITALS: Ht 180.3 cm; Wt 81.1 kg
[~2024-07-16 11:39] MED LIST: LISI-275 PO
[2024-07-16 11:50] VITALS: BP 137/81; RESP 20; O2SAT 99
[2024-07-16 11:53] VITALS: PULSE 85
--- NOTE | 2024-07-16 11:58 | ECG ---
[facility] Test Date: 2024-07-16 Test Time: 11:53:38 Pat Name: CORDELL PRADO Department: ER Room: Gender: Cut Out Marker: DAJUAN : 1985 Requested By: LUIS QUINTANA Order Number: [id number] Reading MD: Levi Seth Measurements Intervals [place] Rate: 85 P: 67 LA: 152 QRS: -37 QRSD: 111 T: 57 QT: 373 QTc: 444 Interpretive Statements Sinus rhythm Left ventricular hypertrophy ST elev, probable normal early repol pattern Baseline wander in lead(s) V1 Electronically Signed On 07-18-2024 8:24:38 PST by Levi Seth Please click the below link to view image of tracing.
--- NOTE | 2024-07-16 12:29 | DVH ---
EXAM: CT HEAD WITHOUT CONTRAST INDICATION: DIZZINESS TECHNIQUE: CT of the head without intravenous contrast. Radiation Dose : 1. Head: CT Dose: CTDI volume is 53.99 mGy. Dose-length product is 863.9 mGy*cm The dose indicators for CT are the volume Computed Tomography (CT) Dose Index (CTDIvol) and the Dose Length Product (DLP), and are measured in units of mGy and mGy-cm, respectively. These indicators are not patient dose, but values generated from the CT scanner acquisition factors. The report includes radiation exposure data for exposures received during this examination. COMPARISON: None FINDINGS: There is no evidence of acute intracranial hemorrhage, extra-axial collection, mass effect, midline s hift, herniation or hydrocephalus. The ventricles, sulci and cisterns are age appropriate. The browning-white differentiation is intact. Patchy periventricular and subcortical white matter hypoattenuation is nonspecific but may be related to small vessel ischemic disease. The visualized paranasal sinuses and mastoid air cells are clear. The surrounding soft tissues and osseous structures are unremarkable. IMPRESSION: 1. No acute intracranial abnormality. Radiation optimization: All CT scans at this facility use at least one of these dose optimization tracy hniques: automated exposure control mA and/or kV adjustment per patient size (includes targeted exam s where dose is matched to clinical indication) or iterative reconstruction.
[2024-07-16 13:24] LABS: Basophils # (auto) 0 10 ^3/uL (0-0.2); Basophils % (auto) 0.3 % (0.0-2.0); Eosinophils # (auto) 0 10 ^3/uL (0-0.8); Hematocrit 46.1 % (41.0-53.0); Hemoglobin 15.6 g/dL (13.5-17.5); Lymphocytes # (auto) 1.5 10 ^3/uL (0.4-5.4); Lymphocytes % (auto) 13.5 % (10.0-50.0); Mean Corpuscular Hgb Conc. 33.9 g/dL (32.0-36.0); Mean Corpuscular Volume 94.1 fL (80.0-100.0); Monocytes # (auto) 0.9 10 ^3/uL (0-1.3); Neutrophils # (auto) 8.5 10 ^3/uL (1.6-8.6); Neutrophils % (auto) 78.2 % (37.0-80.0); Platelet Count (auto) 298 10^3/uL (140-450); Red Cell Distribution Width 13.7 % (11.8-14.3); White Blood Cell 10.8 10^3/uL (4.4-10.8)
[2024-07-16 13:40] LABS: Alanine Aminotransferase 17 U/L (7-40); Albumin 4.7 g/dL (3.2-4.8); Alkaline Phosphatase 69 U/L (46-116); Anion Gap 6 (5-15); Aspartate Aminotransferase 17 U/L (13-40); BUN/Creatinine Ratio 10.7 (10.0-20.0); Blood Urea Nitrogen 13 mg/dL (9-23); Chloride 103 mmol/L (98-107); Glucose 82 mg/dL (74-106); Potassium 4.5 mmol/L (3.5-5.1); Sodium 141 mmol/L (136-145)
[2024-07-16 13:41] LABS: Bilirubin, Total 0.6 mg/dL (0.2-1.0); Total Protein 6.5 g/dL (5.7-8.2)
[2024-07-16 13:48] LABS: Carbon Dioxide 32 mmol/L (20-31)
[2024-07-17] MEDS ORDERED: MECL1TAB42 PO (13:55)
[2024-07-17] MEDS ORDERED: HYDR-4798 PO (13:55)
[2024-07-17] MEDS ORDERED: IBUP-1455 PO (13:55)
== END 2024-07-16 15:06 | disposition left against medical advice (07) ==
LOC: ER 11:46
DX: R55 Syncope and collapse (principal); Z53.21 Procedure and treatment not carried out due to patient leaving prior to being seen by health care provider
CPT/HCPCS: 36415; 70450; 80053; 82962; 84484; 85025; 93005

== ENCOUNTER 2024-07-17 12:02 | Emergency (ER) | payer OTHER ==
[~2024-07-17] VITALS: Ht 165.1 cm; Wt 83.0 kg
--- NOTE | 2024-07-17 12:27 | ED.PDOC ---
HPI (NEURO) HPI Comments 38 y.o male with PMHx of HTN, presents to the ED for a chief complaint of dizziness that started 2 days ago but worsened last night around [id number]. Patient describes dizziness as room shifting back an forth and is intermittent with no dizziness at rest. Patient also complains of right upper quadrant pain s/p bending over the railing of his horse loredo & states he heard a popping sensation and since has constant aching pain. Patient denies any nausea, vomiting, diarrhea, fever, chills, urinary symptoms, chest pain. Chief Complaint: Dizziness Time Seen by MD: 12:20 Primary Care Provider: GREGOR Reviewed Notes: Nurses Notes, Medications, Allergies Information Source: Patient Mode of Arrival: Ambulatory Severity: Moderate Dizziness/Weakness Severity: Does not affect activitie Timing: Days (2) Duration: Since onset Onset: At rest Circumstances: Spontaneous Symptoms: None History of: Hypertension Modifying factors: Nothing Associated Signs and Symptoms: Other Past Medical History PAST MEDICAL HISTORY: HTN Surgical History: Appendectomy Surgical History (Other): right knee x 4 Family History Family History: Reviewed,noncontributory to illness Social History Smoker: Non-Smoker Alcohol: Heavy Drugs: Marijuana Lives In: Home Constitutional: denies: chills, diaphoresis, fatigue, fever, malaise, sweats, weakness, others EENTM: denies: blurred vision, double vision, ear bleeding, ear discharge, ear drainage, ear pain, ear ringing, eye pain, eye redness, hearing loss, mouth pain, mouth swelling, nasal discharge, nose bleeding, nose congestion, nose pain, photophobia, tearing, throat pain, throat swelling, voice changes, others Respiratory: denies: cough, hemoptysis, orthopnea, SOB at rest, shortness of breath, SOB with excertion, stridor, wheezing, others Cardiovascular: denies: chest pain, dizzy spells, diaphoresis, Dyspnea on exertion, edema, irregular heart beat, left arm pain, lightheadedness, palpitations, PND, syncope, others Gastrointestinal: reports: abdominal pain; denies: abdomen distended, blood streaked bowels, constipated, diarrhea, dysphagia, difficulty swallowing, hematemesis, melena, nausea, poor appetite, poor fluid intake, rectal bleeding, rectal pain, vomiting, others Genitourinary: denies: burning, dysuria, flank pain, frequency, hematuria, incontinence, penile discharge, penile sore, pain, testicle pain, testicle swelling, urgency, others Neurological: reports: dizziness; denies: fainting, headache, left sided numbness, left sided weakness, numbness, paresthesia, pre-existing deficit, right sided numbness, right sided weakness, seizure, speech problems, tingling, tremors, weakness, others Musculoskeletal: denies: back pain, gout, joint pain, joint swelling, muscle pain, muscle stiffness, neck pain, others Integumetry: denies: bruises, change in color, change in hair/nails, dryness, laceration, lesions, lumps, rash, wounds, others Allergic/Immunocompromised: denies: Difficulty Healing, Frequent Infections, Hives, Itching, others Hematologic/Lymphatic: denies: anemia, blood clots, easy bleeding, easy bruising, swollen glands, others Endocrine: denies: excessive hunger, excessive sweating, excessive thirst, excessive urination, flushing, intolerance to cold, intolerance to heat, unexplained weight gain, unexplained weight loss, others Psychiatric: denies: anxiety, bipolar disorder, depression, hopeless, panic disorder, schizophrenia, sleepless, suicidal, others All Other Systems: Reviewed and Negative Physical Exam General Appearance: No Apparent Distress HEENT: PERRL/EOMI, Other (no facial asymmetry) Neck: Full Range of Motion, Non-Tender, Normal Inspection, Supple Respiratory: Chest Non-Tender, No Accessory Muscle Use, No Respiratory Distress, Normal Breath Sounds Cardiovascular: No Edema, No JVD, Regular Rate/Rhythm Breast Exam: Deferred Gastrointestinal: Soft, Tenderness (RUQ) Genitalia: Deferred Pelvic: Deferred Rectal: Deferred Extremities: Normal inspection, Normal range of motion, Non-tender, No pedal edema Neurologic: Alert (oriented x 4), Normal Affect, Normal Mood, Other (Ambulatory without difficulty. No gross focal deficit.) Cerebellar Function: NOT DONE Reflexes: NOT DONE Skin: Dry, Normal Color, Warm Lymphatic: NOT DONE EKG EKG : Comments Sinus rhythm, rate 77, normal intervals, normal axis, possible old inferior infarct, nonspecific T changes Was a procedure done? Was a procedure done?: No Differential Diagnosis (SZ) Seizure: CVA/TIA, Hypoglycemia, Idiopathic, Mass Lesion, Encephalopathy CVA: Electrolyte Imbalance, Hypoglycemia, SAH General Weakness: Dehydration, Electrolyte imbalance, Myocardial infarction, Vertigo: central, Vertigo: peripheral, Vestibular neuronitis Headache: Epidural Hemorrhage, Intracerebral Hemorrhage, Subarachnoid Hemorrhage, Subdural Hemorrhage, Sinusitis, Other (abd wall contusion, liver contusion, cholecystitis, among others) X-Ray, Labs, Meds, VS Vital Signs Date Time Temp Pulse Resp B/P (MAP) Pulse Ox O2 Delivery O2 Flow Rate FiO2 07/17/24 13:46 98 19 130/83 (99) 98 07/17/24 12:24 77 07/17/24 12:16 98.4 96 16 128/85 (99) 99 Lab Test 07/17/24 12:55 Range/Units White Blood Count 9.1 4.4-10.8 10^3/uL Red Blood Count 5.27 4.5-5.90 10^6/uL Hemoglobin 16.9 13.5-17.5 g/dL Hematocrit 49.5 41.0-53.0 % Mean Corpuscular Volume 94.0 80.0-100.0 fL Mean Corpuscular Hemoglobin 32.0 28.0-32.0 pg Mean Corpuscular Hemoglobin Concent 34.1 32.0-36.0 g/dL Red Cell Distribution Width 13.6 11.8-14.3 % Platelet Count 325 140-450 10^3/uL Mean Platelet Volume 7.6 6.9-10.8 fL Neutrophils (%) (Auto) 78.5 37.0-80.0 % Lymphocytes (%) (Auto) 15.1 10.0-50.0 % Monocytes (%) (Auto) 5.9 0.0-12.0 % Eosinophils (%) (Auto) 0.0 0.0-7.0 % Basophils (%) (Auto) 0.5 0.0-2.0 % Neutrophils # (Auto) 7.2 1.6-8.6 10 ^3/uL Lymphocytes # (Auto) 1.4 0.4-5.4 10 ^3/uL Monocytes # (Auto) 0.5 0-1.3 10 ^3/uL Eosinophils # (Auto) 0 0-0.8 10 ^3/uL Basophils # (Auto) 0 0-0.2 10 ^3/uL Nucleated Red Blood Cells 0.0 % Sodium Level 139 136-145 mmol/L Potassium Level 5.1 3.5-5.1 mmol/L Chloride Level 103 98-107 mmol/L Carbon Dioxide Level 31 20-31 mmol/L Anion Gap 5 5-15 Blood Urea Nitrogen 13 9-23 mg/dL Creatinine 1.17 0.700-1.30 mg/dL Glomerular Filtration Rate Calc 81 >90 mL/min BUN/Creatinine Ratio 11.1 10.0-20.0 Serum Glucose 98 74-106 mg/dL Calcium Level 10.4 8.7-10.4 mg/dL Total Bilirubin 0.6 0.2-1.0 mg/dL Aspartate Amino Transferase (AST) 15 13-40 U/L Alanine Aminotransferase (ALT) 18 7-40 U/L Alkaline Phosphatase 73 46-116 U/L Troponin I High Sensitivity 7 </=54 ng/L Total Protein 6.9 5.7-8.2 g/dL Albumin 4.9 H 3.2-4.8 g/dL Lipase 29 12-53 U/L Plasma/Serum Blood Alcohol < 3.0 <10 mg/dL Current Medications Medications (Trade) Dose Ordered Sig/Rosina Route Start Time Stop Time Status Last Admin Meclizine HCl (Antivert Tablet) 50 mg ONCE ONCE PO 07/17/24 12:30 07/17/24 12:31 DC 07/17/24 13:43 Acetaminophen/ Hydrocodone Bitart ([place] 10/325MG Tab) 1 tab ONCE ONCE PO 07/17/24 12:30 07/17/24 12:31 DC 07/17/24 13:46 PROCEDURE(s): HWOCT - HEAD WITHOUT CONTRAST REASON: dizzy ORDER NUMBER(s): [id number], ACCESSION NUMBER(s): [id number] CLINICAL INFORMATION: 38 years old, Male; dizziness.. TECHNIQUE: Axial imaging was obtained through the brain without contrast. Coronal and sagittal reformatted images were obtained, reviewed, and stored. Images were reviewed in brain and bone windows. All CT scans at this medical facility are performed using dose modulation techniques as appropriate to a performed exam including the following: Automated exposure control was utilized; adjustment of the MA and/or KV according to patient size; and use of iterative reconstruction technique. CTDIvol = 53.92 mGy DLP = 1081.87 mGy-cm COMPARISON: CT HEAD WITHOUT CONTRAST on DOS: 07/16/24 FINDINGS: There is no acute intracranial hemorrhage or extraaxial fluid collection. No mass effect or midline shift. The ventricles and sulci are with in normal limits in size for age. Basal cisterns are patent. The calvarium is unremarkable. Paranasal sinuses and mastoid air cells are clear. IMPRESSION: No CT evidence of acute intracranial abnormality. EDURE(s): ABPL - CT AB PEL WO CON-NO ORAL OR IV REASON: RUQ pain ORDER NUMBER(s): [id number], ACCESSION NUMBER(s): [id number] CLINICAL INFORMATION: 38 years old, Male; right upper quadrant abdominal pain. TECHNIQUE: Axial CT images of the abdomen and pelvis were obtained without IV contrast. Coronal and sagittal reformatted images were obtained, reviewed, and stored. Evaluation of the parenchymal organs is limited without IV contrast. Evaluation of the bowel and mesentery is limited without oral contrast. All CT scans at this medical facility are performed using dose modulation techniques as appropriate to a performed exam including the following: Automated exposure control was utilized; adjustment of the MA and/or KV according to patient size; and use of iterative reconstruction technique. CTDIvol = 15.22 mGy DLP = 979.54 mGy-cm COMPARISON: CT ABD PELVIS WO CONTRAST on DOS: 09/04/19 FINDINGS: Examination is limited due to prominent beam hardening artifact from being scanned arms overlying chest and upper abdomen. Lung bases: Mild atelectasis in the lung bases. Liver: Grossly unremarkable in its noncontrast enhanced appearance. No abnormal density or focal lesion identified. Biliary: No calcified gallstones or biliary ductal dilatation. Spleen: Unremarkable. Pancreas: Grossly unremarkable in its noncontrast enhanced appearance. Adrenal glands: Unremarkable. No mass. Kidneys: No hydronephrosis. No renal or ureteral calculi. Aorta/Vascular: No aneurysm or significant calcification. Retroperitoneum: No mass or lymphadenopathy. Bowel/mesentery: No small bowel obstruction. No free air or free fluid. Appendix is not visualized. Moderate to large amount of stool in the colon. Scattered colonic diverticula without adjacent inflammatory changes to suggest diverticulitis. Pelvic organs: Grossly unremarkable. Bladder: Unremarkable. No mass. Abdominal wall: No mass or hernia. Bones: No acute fracture or suspicious intraosseous lesion. IMPRESSION: 1. Limited examination for the reasons described above. 2. No small bowel obstruction. 3. Moderate to large amount of stool in the colon. 4. Scattered colonic diverticula without adjacent inflammatory changes to suggest diverticulitis. 5. No hydronephrosis and no renal or ureteral calculi. X-Ray, Labs, Meds, VS Comment 38-year-old male with a history of hypertension complaining of dizziness, generalized weakness, and right upper quadrant pain Vitals unremarkable Exam remarkable for lateral nystagmus and right upper quadrant tenderness to palpation. No tenderness to percussion. No bruising. No rebound or guarding. Cruz's sign negative Rhythm strip independently interpreted by me: Sinus rhythm, rate 77, no ectopy. CT head unremarkable CT abdomen and pelvis IMPRESSION: 1. Limited examination for the reasons described above. 2. No small bowel obstruction. 3. Moderate to large amount of stool in the colon. 4. Scattered colonic diverticula without adjacent inflammatory changes to suggest diverticulitis. 5. No hydronephrosis and no renal or ureteral calculi. CBC, CMP, lipase, BNP, troponin, serum alcohol unremarkable Patient treated with the following in the ED: [place] 10/325 mg p.o., meclizine 50 mg p.o. Re-evaluation, patient stated pain had improved. He was not dizzy at rest, vitals were stable, and patient was neurologically intact. Hospitalization was considered, however patient had rapid improvement of symptoms with treatment in the ED, and I no longer feel hospitalization is necessary. He now appears stable for discharge with close outpatient follow-up with his primary doctor for referral to a neurologist. Rx meclizine, [place], ibuprofen Time of 1ST Reevaluation: 12:23 Reevaluation 1ST: Unchanged Patient Education/Counseling: Diagnosis, Treatment, Prognosis Family Education/Counseling: No Family Present Departure 1 Departure Time of Disposition: 13:30 Impression: Primary Impression: Positional vertigo Additional Impression: Abdominal wall contusion Qualified Codes: S30.1XXA - Contusion of abdominal wall, initial encounter Disposition: HOME / SELF CARE / HOMELESS Condition: Stable Additional Instructions: Your blood and urine tests were unremarkable. Your head CT was unremarkable. Your abdominal CT was unremarkable. Your dizziness symptoms are likely due to positional vertigo, which can be treated with medication and is not dangerous. Your abdominal pain is likely due to bruising of your abdominal wall. I have prescribed medication for dizziness and for pain. Follow-up with your primary doctor in 1-2 days. Return to ER for persistent or worsening symptoms. e-Prescriptions Hydrocodone-Acetaminophen (Hydrocodone Bitartrate/AC 10-325 mg) 1 Tab Tab 1 TAB PO Q6HP PRN, #10 TAB Prov: JOLIE PATEL MD 07/17/24 Ibuprofen Micronized (Ibuprofen) 800 Mg Tab 800 MG PO Q8HP PRN, #30 TAB prn pain, take with food Prov: JOLIE PATEL MD 07/17/24 Meclizine HCl (Meclizine 25) 25 Mg Tab 25 MG PO TID PRN, #30 TAB prn dizziness Prov: JOLIE PATEL MD 07/17/24 Discharged With: Friend Critical Care Note Critical Care Time?: No Stability Stability form required: No I personally scribed for JOLIE PATEL MD ([email or web address]) on 07/17/24 at 12:27. Electronically submitted by Yael Cope ([facility]). JOLIE PATEL MD Jul 17, 2024 12:27
--- NOTE | 2024-07-17 13:05 | DVH ---
CLINICAL INFORMATION: 38 years old, Male; dizziness.. TECHNIQUE: Axial imaging was obtained through the brain without contrast. Coronal and sagittal refor matted images were obtained, reviewed, and stored. Images were reviewed in brain and bone windows. A ll CT scans at this medical facility are performed using dose modulation techniques as appropriate to a performed exam including the following: Automated exposure control was utilized; adjustment of the MA and/or KV according to patient size; and use of iterative reconstruction technique. CTDIvol = 53.92 mGy DLP = 1081.87 mGy-cm COMPARISON: CT HEAD WITHOUT CONTRAST on DOS: 07/16/24 FINDINGS: There is no acute intracranial hemorrhage or extraaxial fluid collection. No mass effect o r midline shift. The ventricles and sulci are within normal limits in size for age. Basal cisterns a re patent. The calvarium is unremarkable. Paranasal sinuses and mastoid air cells are clear. IMPRESSION: No CT evidence of acute intracranial abnormality.
[2024-07-17 13:17] LABS: Basophils # (auto) 0 10 ^3/uL (0-0.2); Basophils % (auto) 0.5 % (0.0-2.0); Eosinophils # (auto) 0 10 ^3/uL (0-0.8); Hematocrit 49.5 % (41.0-53.0); Hemoglobin 16.9 g/dL (13.5-17.5); Lymphocytes # (auto) 1.4 10 ^3/uL (0.4-5.4); Lymphocytes % (auto) 15.1 % (10.0-50.0); Mean Corpuscular Hgb Conc. 34.1 g/dL (32.0-36.0); Monocytes # (auto) 0.5 10 ^3/uL (0-1.3); Monocytes % (auto) 5.9 % (0.0-12.0); Neutrophils # (auto) 7.2 10 ^3/uL (1.6-8.6); Neutrophils % (auto) 78.5 % (37.0-80.0); Platelet Count (auto) 325 10^3/uL (140-450); Red Blood Cells 5.27 10^6/uL (4.5-5.90); Red Cell Distribution Width 13.6 % (11.8-14.3); White Blood Cell 9.1 10^3/uL (4.4-10.8)
--- NOTE | 2024-07-17 13:19 | DVH ---
CLINICAL INFORMATION: 38 years old, Male; right upper quadrant abdominal pain. TECHNIQUE: Axial CT images of the abdomen and pelvis were obtained without IV contrast. Coronal and sagittal reformatted images were obtained, reviewed, and stored. Evaluation of the parenchymal organs is limited without IV contrast. Evaluation of the bowel and mesentery is limited without oral contra st. All CT scans at this medical facility are performed using dose modulation techniques as appropria te to a performed exam including the following: Automated exposure control was utilized; adjustment o f the MA and/or KV according to patient size; and use of iterative reconstruction technique. CTDIvol = 15.22 mGy DLP = 979.54 mGy-cm COMPARISON: CT ABD PELVIS WO CONTRAST on DOS: 09/04/19 FINDINGS: Examination is limited due to prominent beam hardening artifact from being scanned arms ove rlying chest and upper abdomen. Lung bases: Mild atelectasis in the lung bases. Liver: Grossly unremarkable in its noncontrast enhanced appearance. No abnormal density or focal les ion identified. Biliary: No calcified gallstones or biliary ductal dilatation. Spleen: Unremarkable. Pancreas: Grossly unremarkable in its noncontrast enhanced appearance. Adrenal glands: Unremarkable. No mass. Kidneys: No hydronephrosis. No renal or ureteral calculi. Aorta/Vascular: No aneurysm or significant calcification. Retroperitoneum: No mass or lymphadenopathy. Bowel/mesentery: No small bowel obstruction. No free air or free fluid. Appendix is not visualized. M oderate to large amount of stool in the colon. Scattered colonic diverticula without adjacent inflam matory changes to suggest diverticulitis. Pelvic organs: Grossly unremarkable. Bladder: Unremarkable. No mass. Abdominal wall: No mass or hernia. Bones: No acute fracture or suspicious intraosseous lesion. IMPRESSION: 1. Limited examination for the reasons described above. 2. No small bowel obstruction. 3. Moderate to large amount of stool in the colon. 4. Scattered colonic diverticula without adjacent inflammatory changes to suggest diverticulitis. 5. No hydronephrosis and no renal or ureteral calculi.
[2024-07-17 13:25] LABS: Alkaline Phosphatase 73 U/L (46-116)
[2024-07-17 13:26] LABS: Alanine Aminotransferase 18 U/L (7-40); Anion Gap 5 (5-15); Aspartate Aminotransferase 15 U/L (13-40); BUN/Creatinine Ratio 11.1 (10.0-20.0); Bilirubin, Total 0.6 mg/dL (0.2-1.0); Blood Urea Nitrogen 13 mg/dL (9-23); Calcium 10.4 mg/dL (8.7-10.4); Carbon Dioxide 31 mmol/L (20-31); Chloride 103 mmol/L (98-107); Glucose 98 mg/dL (74-106); Sodium 139 mmol/L (136-145); Total Protein 6.9 g/dL (5.7-8.2)
[2024-07-17 13:27] LABS: Albumin 4.9 g/dL (3.2-4.8); Blood Alcohol < 3.0 mg/dL (<10); Potassium 5.1 mmol/L (3.5-5.1)
[2024-07-17] MEDS: MECLIZINE HCL 25 MG TAB PO ONE (13:43)
[2024-07-17 13:46] VITALS: BP 130/83; PULSE 98; RESP 19; O2SAT 98
[2024-07-17] MEDS: HYDROcodone-ACET 10/325MG TAB PO ONE (13:46)
[2024-07-17 13:47] LABS: Lipase 29 U/L (12-53)
[2024-07-17] MEDS ORDERED: MECL1TAB42 PO (13:55)
[2024-07-17] MEDS ORDERED: HYDR-4798 PO (13:55)
[2024-07-17] MEDS ORDERED: IBUP-1455 PO (13:55)
--- NOTE | 2024-07-19 14:29 | ECG ---
[facility] Test Date: 2024-07-17 Test Time: 12:24:37 Pat Name: CORDELL PRADO Department: ER Room: Gender: M Rn Oncology: DR JOHNSON: 1985 Requested By: JOLIE LANDEROS Order Number: [id number] Reading MD: Measurements Intervals [place] Rate: 77 P: -7 SD: 128 QRS: 119 QRSD: 110 T: -17 QT: 377 QTc: 427 Interpretive Statements Sinus rhythm Inferior infarct, age indeterminate Lateral leads are also involved Please click the below link to view image of tracing.
== END 2024-07-17 14:30 | disposition home or self-care (01) ==
LOC: ER 12:02
DX: S30.1XXA Contusion of abdominal wall, initial encounter (principal); H81.10 Benign paroxysmal vertigo, unspecified ear; I10 Essential (primary) hypertension; Z90.49 Acquired absence of other specified parts of digestive tract; X58.XXXA Exposure to other specified factors, initial encounter; Y93.89 Activity, other specified; Y92.89 Other specified places as the place of occurrence of the external cause; Y99.8 Other external cause status
CPT/HCPCS: 36415; 70450; 74176; 80053; 80320; 83690; 84484; 85025; 93005; 99284; J8597

== ENCOUNTER 2024-08-04 19:59 | Inpatient (IN) | payer OTHER ==
[~2024-08-04] VITALS: Ht 177.8 cm; Wt 81.0 kg
[~2024-08-04 19:59] MED LIST changes: +HYDR-4798 PO; +IBUP-1455 PO; +MECL1TAB42 PO
[2024-08-04] MEDS: NALOXONE HCL 1MG/ML 2ML SYRINGE ONE (20:05)
--- NOTE | 2024-08-04 20:11 | ED.PDOC ---
Altered Mental Status HPI Comments 38-year-old male came to emergency room via EMS for altered level of consciousness/possible seizure episode. Per EMS, patient was picked up at home, recently diagnosed with seizures, on Keppra, her the witnessed syncopal attack at home. CPR initiated by family members since patient was unresponsive. Upon arrival the paramedics, patient still unresponsive with shallow breathing, saturating at 75% on room air and was given 2 mg of Narcan while en route to the ER. Patient upon arrival still confused, disoriented, uncooperative and combative. No information could be taken from him at this time of care. 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 Allergies: Coded Allergies: NO KNOWN ALLERGIES (Unverified , 09/04/19) Home Meds Active Scripts Hydrocodone-Acetaminophen (Hydrocodone Bitartrate/AC 10-325 mg) 1 Tab Tab, 1 TAB PO Q6HP PRN, #10 TAB Prov:JOLIE PATEL MD 07/17/24 Ibuprofen Micronized (Ibuprofen) 800 Mg Tab, 800 MG PO Q8HP PRN, #30 TAB prn pain, take with food Prov:JOLIE PATEL MD 07/17/24 Meclizine HCl (Meclizine 25) 25 Mg Tab, 25 MG PO TID PRN, #30 TAB prn dizziness Prov:JOLIE PATEL MD 07/17/24 Reported Medications Lisinopril (Lisinopril) 5 Mg Tab, 5 MG PO DAILY for 30 Days, MG 09/05/19 Information Source: Patient, Emergency Med Personnel Mode of Arrival: EMS Severity: Unable to Care for Self Timing: Minutes Duration: Since onset Prehospital treatment: Treatment (narcan) Quality: Decreased Alertness, Change in Behavior, Confusion Review of Systems REVIEW OF SYSTEMS: Patient confused and disoriented at this time No fever, no chills, or fatigue HEENT: No sore throat, no earache, no congestion, no neck pain. Cardiac: No chest pain. No palpitations. Lungs: No shortness of breath, no cough. GI: No nausea, no vomiting, no diarrhea, no constipation, no abdominal pain : No dysuria, frequency, or urgency. No hematuria. Musculoskeletal: No joint pain , no joint swelling, no extremity edema. Skin: No rash, no itching. Neuro: No headache, no dizziness, no weakness Vital Signs Vital Signs Date Time Temp Pulse Resp B/P (MAP) Pulse Ox O2 Delivery O2 Flow Rate FiO2 08/04/24 21:20 97.5 80 13 131/84 (100) 97 97.5 Physical Exam General: Awake, alert and oriented. No acute distress. Skin: Skin in warm, dry and intact. Appropriate color for ethnicity. Nailbeds p ink with no cyanosis. HEENT: The head is normocephalic and atraumatic. Conjunctivae are clear without exudates or hemorrhage. Sclera is non-icteric. EOM are intact. No signs of nystagmus. Eyelids are normal in appearance without swelling or lesions. Oral mucosa is pink and moist Neck: The neck is supple with normal range of motion. No JVD. Cardiac: Heart rate and rhythm are normal. No murmurs, gallops, or rubs are auscultated. Respiratory: No signs of respiratory distress. Lung sounds are clear in all lobes bilaterally without rales, ronchi, or wheezes. Abdominal: Abdomen is soft, non-tender without distention. Bowel sounds are present and normoactive in all four quadrants. Extremities: Upper and lower extremities are atraumatic in appearance without deformity or edema. Neurological: The patient is awake, alert and oriented to person, place, and time with normal speech. Speech is clear. There is no facial asymmetry. Psychiatric: Appropriate mood and affect. Good judgement and insight. No visual or auditory hallucinations. Past Medical History PAST MEDICAL HISTORY: HTN, Seizures Surgical History: Appendectomy Family History Family History: Reviewed,noncontributory to illness Social History Smoker: Non-Smoker Alcohol: Heavy Drugs: Marijuana Lives In: Home Was a procedure done? Was a procedure done?: No Differential Diagnosis (ALOC) Differential Diagnosis: Dehydration, Hypoglycemia, DKA, Encephalopathy, Meningitis, Sepsis, Seizure, CVA, Drug Overdose, ETOH Intoxication, Other X-Ray, Labs, Meds, VS Vital Signs Date Time Temp Pulse Resp B/P (MAP) Pulse Ox O2 Delivery O2 Flow Rate FiO2 08/04/24 21:20 97.5 80 13 131/84 (100) 97 97.5 08/04/24 20:12 98.8 61 14 128/84 (99) 97 3/6/25 20:00 77 Lab Test 08/04/24 22:24 08/04/24 22:05 08/04/24 20:30 Range/Units POC Glucose 129 H 70-106 mg/dl Levetiracetam Level Pending Plasma/Serum Blood Alcohol < 3.0 <10 mg/dL White Blood Count 11.7 H 4.4-10.8 10^3/uL Red Blood Count 4.61 4.5-5.90 10^6/uL Hemoglobin 15.0 13.5-17.5 g/dL Hematocrit 43.2 41.0-53.0 % Mean Corpuscular Volume 93.7 80.0-100.0 fL Mean Corpuscular Hemoglobin 32.5 H 28.0-32.0 pg Mean Corpuscular Hemoglobin Concent 34.7 32.0-36.0 g/dL Red Cell Distribution Width 13.1 11.8-14.3 % Platelet Count 271 140-450 10^3/uL Mean Platelet Volume 8.0 6.9-10.8 fL Neutrophils (%) (Auto) 64.8 37.0-80.0 % Lymphocytes (%) (Auto) 26.4 10.0-50.0 % Monocytes (%) (Auto) 8.2 0.0-12.0 % Eosinophils (%) (Auto) 0.1 0.0-7.0 % Basophils (%) (Auto) 0.5 0.0-2.0 % Neutrophils # (Auto) 7.6 1.6-8.6 10 ^3/uL Lymphocytes # (Auto) 3.1 0.4-5.4 10 ^3/uL Monocytes # (Auto) 1.0 0-1.3 10 ^3/uL Eosinophils # (Auto) 0 0-0.8 10 ^3/uL Basophils # (Auto) 0.1 0-0.2 10 ^3/uL Nucleated Red Blood Cells 0.1 % Sodium Level 140 136-145 mmol/L Potassium Level 4.7 3.5-5.1 mmol/L Chloride Level 106 98-107 mmol/L Carbon Dioxide Level 30 20-31 mmol/L Anion Gap 4 L 5-15 Blood Urea Nitrogen 15 9-23 mg/dL Creatinine 1.19 0.700-1.30 mg/dL Glomerular Filtration Rate Calc 79 >90 mL/min BUN/Creatinine Ratio 12.6 10.0-20.0 Serum Glucose 59 L 74-106 mg/dL Lactic Acid Level 1.4 0.4-2.0 mmol/L Calcium Level 9.5 8.7-10.4 mg/dL Total Bilirubin 0.5 0.2-1.0 mg/dL Aspartate Amino Transferase (AST) 31 13-40 U/L Alanine Aminotransferase (ALT) 19 7-40 U/L Alkaline Phosphatase 74 46-116 U/L Creatine Kinase 1094 H 46-171 U/L Troponin I High Sensitivity 19 </=54 ng/L Total Protein 6.8 5.7-8.2 g/dL Albumin 4.6 3.2-4.8 g/dL Prolactin 18.76 H 2.1-17.7 ng/mL Current Medications Medications (Trade) Dose Ordered Sig/Rosina Route Start Time Stop Time Status Last Admin Sodium Chloride 1,000 ml @ 1,000 mls/hr Q1H ONCE IV 08/04/24 20:15 08/04/24 21:14 DC 08/04/24 21:37 Naloxone HCl (Narcan) 4 mg ONCE ONCE IV 08/04/24 20:45 08/04/24 20:46 DC 08/04/24 20:43 Naloxone HCl (Narcan) 2 mg ONCE ONCE IV 08/04/24 21:45 08/04/24 21:46 DC 08/04/24 21:57 Levetiracetam 100 ml @ 400 mls/hr ONCE ONCE IV 08/04/24 22:00 08/04/24 22:14 DC 08/04/24 21:57 EXAM: CT HEAD WITHOUT CONTRAST INDICATION: AMS TECHNIQUE: CT of the head without intravenous contrast. Radiation Dose Information: CT Dose: CTDI volume is 66.89 mGy. Dose-length product is 1585.49 mGy*cm The dose indicators for CT are the volume Computed Tomography (CT) Dose Index (CTDIvol) and the Dose Length Product (DLP), and are measured in units of mGy and mGy-cm, respectively. These indicators are not patient dose, but values generated from the CT scanner acquisition factors. The report includes radiation exposure data for exposures received during this examination. COMPARISON: CT HEAD WITHOUT CONTRAST on DOS: 07/17/24, CT HEAD WITHOUT CONTRAST on DOS: 07/16/24 FINDINGS: There is no evidence of acute intracranial hemorrhage, extra-axial collection, mass effect, midline shift, herniation or hydrocephalus. The ventricles, sulci and cisterns are age appropriate. The browning-white differentiation is intact. Patchy periventricular and subcortical white matter hypoattenuation is nonspecific but may be related to small vessel ischemic disease. The visualized paranasal sinuses and mastoid air cells are clear. The surrounding soft tissues and osseous structures are unremarkable. IMPRESSION: 1. No acute intracranial hemorrhage 2. No CT findings of territorial ischemia. Time of 1ST Reevaluation: 20:09 Reevaluation 1ST: Unchanged Patient Education/Counseling: Other (Patient altered, confused, uncooperative, combative) Family Education/Counseling: Diagnosis, Treatment Departure 1 Departure Time of Disposition: 21:52 Impression: Primary Impression: Altered mental status Additional Impression: History of seizure disorder Disposition: ADMITTED INPATIENT Condition: Serious Comments Patient arrived to the emergency department with altered mental status, confusion, combative. He was given Narcan with none to minimal improvement of his symptoms. Patient remained altered/ obtunded during the ED observation. He he is responsive to painful stimulus. Initially Ativan was ordered for agitation however it was not given. Additional dose of Narcan. Patient is afebrile, neck is supple, minimal elevation of white blood cell count. Patient is possibly postictal, per EMS he takes Keppra at home for seizure disorder. Urine drug screen pending. Patient admitted for further treatment, evaluation and monitoring. Extensive evaluation was performed in attempt to identify or rule out: (See differential diagnosis section) The following tests were ordered, and results were reviewed by me: (See diagnostic results section) The following test were independently interpreted by me: N/A I reviewed and agreed with the following test results read by other providers: CT head without contrast I reviewed the following notes from the pt's past medical encounters: Previous encounter for a LOC Additional information was gathered from interviewing the following independent historians: EMS personnel Discussion of management or test interpretation with external physician/other qualified health health care manager: N/A Addressed an acute or chronic illness that poses a threat to life or bodily function: Altered mental status, seizure disorder Decision regarding hospitalization or escalation of hospital level of care: Risk and benefits of admission for further treatment of patient's condition was considered. Due to patient's current clinical condition, high risk of decline and poor outcome if discharged and need for further inpatient management and monitoring, patient will be admitted to the hospital. Critical Care Note Critical Care Time?: Yes (35 min-critical care time only) Critical care comment: Altered level of consciousness Stability Stability form required: No Heart Score Heart Score: Heart Score Response (Comments) Value History N/A 0 EKG N/A 0 Age N/A 0 Risk Factors N/A 0 Troponin N/A 0 Total 0 I personally scribed for BRADLY SYED MD ([email or web address]) on 08/04/24 at 20:11. Electronically submitted by Ascencion Rodriguez ([email or web address]). I personally scribed for BRADLY SYED MD ([email or web address]) on 08/04/24 at 20:19. Electronically submitted by Ascencion Rodriguez ([email or web address]). I personally scribed for BRADLY SYED MD ([email or web address]) on 08/04/24 at 20:20. Electronically submitted by Ascencion Rodriguez ([email or web address]). I personally scribed for BRADLY SYED MD ([email or web address]) on 08/04/24 at 21:41. Electronically submitted by Ascencion Rodriguez ([email or web address]). BRADLY SYED MD Aug 04, 2024 20:11
[2024-08-04] MEDS ORDERED: LORazepam 2MG/ML-1ML VIAL IV ONE (20:15)
[2024-08-04] MEDS: NALOXONE HCL 1MG/ML 2ML SYRINGE IV ONE ×2 (20:43→21:57)
[2024-08-04 21:17] LABS: Basophils # (auto) 0.1 10 ^3/uL (0-0.2); Basophils % (auto) 0.5 % (0.0-2.0); Eosinophils # (auto) 0 10 ^3/uL (0-0.8); Eosinophils % (auto) 0.1 % (0.0-7.0); Hematocrit 43.2 % (41.0-53.0); Lymphocytes # (auto) 3.1 10 ^3/uL (0.4-5.4); Lymphocytes % (auto) 26.4 % (10.0-50.0); Mean Corpuscular Hemoglobin 32.5 pg (28.0-32.0); Mean Corpuscular Hgb Conc. 34.7 g/dL (32.0-36.0); Mean Corpuscular Volume 93.7 fL (80.0-100.0); Monocytes % (auto) 8.2 % (0.0-12.0); Neutrophils # (auto) 7.6 10 ^3/uL (1.6-8.6); Neutrophils % (auto) 64.8 % (37.0-80.0); Nucleated Red Blood Cells % 0.1 %; Platelet Count (auto) 271 10^3/uL (140-450); Red Blood Cells 4.61 10^6/uL (4.5-5.90); Red Cell Distribution Width 13.1 % (11.8-14.3); White Blood Cell 11.7 10^3/uL (4.4-10.8)
[2024-08-04 21:30] LABS: Alanine Aminotransferase 19 U/L (7-40); Albumin 4.6 g/dL (3.2-4.8); Alkaline Phosphatase 74 U/L (46-116); Anion Gap 4 (5-15); Aspartate Aminotransferase 31 U/L (13-40); BUN/Creatinine Ratio 12.6 (10.0-20.0); Blood Urea Nitrogen 15 mg/dL (9-23); Calcium 9.5 mg/dL (8.7-10.4); Carbon Dioxide 30 mmol/L (20-31); Chloride 106 mmol/L (98-107); Creatine Kinase IFCC 1094 U/L (46-171); Glucose 59 mg/dL (74-106); Potassium 4.7 mmol/L (3.5-5.1); Sodium 140 mmol/L (136-145); Total Protein 6.8 g/dL (5.7-8.2)
[2024-08-04 21:31] LABS: Bilirubin, Total 0.5 mg/dL (0.2-1.0)
--- NOTE | 2024-08-04 21:35 | DVH ---
EXAM: CT HEAD WITHOUT CONTRAST INDICATION: AMS TECHNIQUE: CT of the head without intravenous contrast. Radiation Dose Information: CT Dose: CTDI volume is 66.89 mGy. Dose-length product is 1585.49 mGy*cm The dose indicators for CT are the volume Computed Tomography (CT) Dose Index (CTDIvol) and the Dose Length Product (DLP), and are measured in units of mGy and mGy-cm, respectively. These indicators are not patient dose, but values generated from the CT scanner acquisition factors. The report includes radiation exposure data for exposures received during this examination. COMPARISON: CT HEAD WITHOUT CONTRAST on DOS: 07/17/24, CT HEAD WITHOUT CONTRAST on DOS: 07/16/24 FINDINGS: There is no evidence of acute intracranial hemorrhage, extra-axial collection, mass effect, midline s hift, herniation or hydrocephalus. The ventricles, sulci and cisterns are age appropriate. The browning-white differentiation is intact. Patchy periventricular and subcortical white matter hypoattenuation is nonspecific but may be related to small vessel ischemic disease. The visualized paranasal sinuses and mastoid air cells are clear. The surrounding soft tissues and osseous structures are unremarkable. IMPRESSION: 1. No acute intracranial hemorrhage 2. No CT findings of territorial ischemia.
[2024-08-04] MEDS: SODIUM CHLORIDE 0.9% 1,000 ML IV ONE (21:37)
[2024-08-04] MEDS: levETIRAcetam 1000 mg/100ml 100 ML IV ONE (21:57)
[2024-08-04] MEDS ORDERED: NITROGLYCERIN 0.4 MG SL TAB SL PRN (22:45)
[2024-08-04] MEDS ORDERED: LORazepam 2MG/ML-1ML VIAL IV PRN (22:45)
[2024-08-04] MEDS ORDERED: SODIUM CHLORIDE 0.9% 1,000 ML IV SCH (22:45)
[2024-08-04] MEDS: SODIUM CHLORIDE 0.9% 1,000 ML IV SCH (22:45)
[2024-08-04] MEDS ORDERED: MORPHINE SULFATE INJ 2 MG/ml SYRG IV PRN (22:45)
[2024-08-04 23:39] VITALS: PULSE 76; RESP 26; O2SAT 95
[2024-08-05] VITALS (44 sets, daily range): BP systolic 90–136; BP diastolic 41–97; PULSE 46–122; RESP 14–37; TEMP 97.7–99.3; O2SAT 93–100
[2024-08-05 00:28] LABS: Urine Bacteria None Seen /hpf (None Seen)
[2024-08-05 00:42] LABS: Urine Blood Negative /uL (Negative); Urine Clarity Clear (Clear); Urine Color Light-Yellow (Yellow); Urine Protein, UAD Negative (Negative); Urine Specific Gravity 1.017 (1.001-1.035); Urine Squamous Epithelial Cell None Seen /hpf (<5); Urine Urobilinogen Normal (Negative); Urine WBC 3 /HPF (0-3)
[2024-08-05] MEDS: ONDANSETRON HCL 4 MG/2 ML VIAL IV ONE (01:22)
--- NOTE | 2024-08-05 02:44 | DVHHPRES ---
History of Present Illness Resident Creating Document: RANJIT OSEI RESIDENT Reason for Visit: breakthorugh seizure History of Present Illness A 38-year-old male with a history of seizures on levetiracetam 500 mg BID was brought in by EMS for altered mental status. Per EMS, the patient had a witnessed seizure at home, followed by agonal respirations. His initiated chest compressions until EMS arrived. Upon their arrival, the patient had pulses but continued with agonal respirations. Patient received an 8 mg of Narcan Upon arrival at the ED, he remained postictal, confused, and unresponsive to verbal stimuli but responsive to painful stimuli. Pupils were pinpoint. Initial workup showed: Blood work: Hypoglycemia on CMP, otherwise unremarkable Blood gases: Normal VO2: 94% on nasal cannula Prolactin: Borderline at 18 Urine analysis: Negative for ketones Toxicology: Positive for BZD, fentanyl and CBD Imaging: CT head showed patchy periventricular and subcortical white matter hypodensities, likely representing small vessel ischemic disease, with no acute findings The patient was admitted for seizure monitoring and further evaluation of persistent postictal state. Levetiracetam levels are pending. Past Medical History: Seizure disorder Past Surgical History: None reported Medications: Levetiracetam 500 mg BID Allergies: No known drug allergies Review of Systems Review of Systems unable to obtain Allergies: Coded Allergies: NO KNOWN ALLERGIES (Unverified , 09/04/19) Medications Current Medications Medications Dose Ordered Sig/Rosina Route Start Time Stop Time Status Last Admin Dose Admin Sodium Chloride 1,000 ml @ 60 mls/hr [id number] IV 08/04/24 22:45 Cancel Lorazepam 1 mg Q5MINP PRN IV 08/04/24 22:45 Dextrose/Sodium Chloride 1,000 ml @ 150 mls/hr Q6H40M IV 08/05/24 02:30 Exam Vital Signs Vital Signs Date Time Temp Pulse Resp B/P (MAP) Pulse Ox O2 Delivery O2 Flow Rate FiO2 08/05/24 01:30 61 26 118/64 (82) 97 08/04/24 23:39 Nasal Cannula* 4 36 08/04/24 23:30 97.7 97.7 Exam General: Postictal, unresponsive to verbal stimuli but responsive to painful stimuli. HEENT: No trauma, pupils pinpoint, no scleral icterus. Cardiovascular: Regular rate and rhythm, no murmurs. Respiratory: bilateral crackles Abdomen: Soft, non-tender, no distension. Neurological: No focal deficits Postictal confusion No seizure activity observed in ED Labs/Xrays Labs Test 08/04/24 22:41 08/04/24 22:24 08/04/24 22:05 08/04/24 20:30 Range/Units Blood Gas Specimen Type Arterial Blood Gas Sample Site Right radial Blood Gas Patient Temperature 37.0 Arterial Blood Date Drawn [id number] Arterial Blood pH 7.392 7.350-7.450 Arterial Blood Partial Pressure CO2 39.9 35.0-48.0 mmHg Arterial Blood Partial Pressure O2 94.6 83.0-108.0 mmHg Arterial Blood HCO3 23.7 21.0-28.0 mmol/L Arterial Blood Oxygen Saturation 97.4 94.0-98.0 % Arterial Blood Base Excess -1.0 -2.0-3.0 mmol/L Arterial Blood Oxyhemoglobin 96.0 94.0-98.0 % Arterial Blood Carboxyhemoglobin 0.9 0.5-1.5 % Arterial Blood Methemoglobin 0.5 0.0-1.5 % Scar Test Positive Blood Gas Total Hemoglobin 15.20 13.5-17.5 g/dL Blood Gas Liter Flow 4.00 Blood Gas Modality Nasal cannula Blood Gas Spontaneous Rate 18 FiO2 % 36.0 POC Glucose 129 H 70-106 mg/dl Plasma/Serum Blood Alcohol < 3.0 <10 mg/dL White Blood Count 11.7 H 4.4-10.8 10^3/uL Red Blood Count 4.61 4.5-5.90 10^6/uL Hemoglobin 15.0 13.5-17.5 g/dL Hematocrit 43.2 41.0-53.0 % Mean Corpuscular Volume 93.7 80.0-100.0 fL Mean Corpuscular Hemoglobin 32.5 H 28.0-32.0 pg Mean Corpuscular Hemoglobin Concent 34.7 32.0-36.0 g/dL Red Cell Distribution Width 13.1 11.8-14.3 % Platelet Count 271 140-450 10^3/uL Mean Platelet Volume 8.0 6.9-10.8 fL Neutrophils (%) (Auto) 64.8 37.0-80.0 % Lymphocytes (%) (Auto) 26.4 10.0-50.0 % Monocytes (%) (Auto) 8.2 0.0-12.0 % Eosinophils (%) (Auto) 0.1 0.0-7.0 % Basophils (%) (Auto) 0.5 0.0-2.0 % Neutrophils # (Auto) 7.6 1.6-8.6 10 ^3/uL Lymphocytes # (Auto) 3.1 0.4-5.4 10 ^3/uL Monocytes # (Auto) 1.0 0-1.3 10 ^3/uL Eosinophils # (Auto) 0 0-0.8 10 ^3/uL Basophils # (Auto) 0.1 0-0.2 10 ^3/uL Nucleated Red Blood Cells 0.1 % Sodium Level 140 136-145 mmol/L Potassium Level 4.7 3.5-5.1 mmol/L Chloride Level 106 98-107 mmol/L Carbon Dioxide Level 30 20-31 mmol/L Anion Gap 4 L 5-15 Blood Urea Nitrogen 15 9-23 mg/dL Creatinine 1.19 0.700-1.30 mg/dL Glomerular Filtration Rate Calc 79 >90 mL/min BUN/Creatinine Ratio 12.6 10.0-20.0 Serum Glucose 59 L 74-106 mg/dL Lactic Acid Level 1.4 0.4-2.0 mmol/L Calcium Level 9.5 8.7-10.4 mg/dL Total Bilirubin 0.5 0.2-1.0 mg/dL Aspartate Amino Transferase (AST) 31 13-40 U/L Alanine Aminotransferase (ALT) 19 7-40 U/L Alkaline Phosphatase 74 46-116 U/L Creatine Kinase 1094 H 46-171 U/L Troponin I High Sensitivity 19 </=54 ng/L Total Protein 6.8 5.7-8.2 g/dL Albumin 4.6 3.2-4.8 g/dL Prolactin 18.76 H 2.1-17.7 ng/mL Test 08/04/24 00:27 Range/Units Urine Color Light-yellow Yellow Urine Clarity Clear Clear Urine pH 6.0 5.0-9.0 Urine Specific [place] 1.017 1.001-1.035 Urine Protein Negative Negative Urine Ketones Negative Negative Urine Blood Negative Negative /uL Urine Nitrite Negative Negative Urine Bilirubin Negative Negative Urine Urobilinogen Normal Negative mg/dL Urine Leukocyte Esterase Negative Negative /uL Urine RBC 1 0 - 3 /hpf Urine Microscopic WBC 3 0-3 /HPF Urine Squamous Epithelial Cells None seen <5 /hpf Urine Bacteria None seen None Seen /hpf Urine Glucose Normal Normal mg/dL Assessment/Plan Assessment/Plan 38-year-old male with seizure disorder on levetiracetam, presenting with altered mental status, postictal state, and pinpoint pupils. Patient received 8 mg of Narcan and levetiracetam IV and with possible aspiration PNA #Acute hypoxic/metabolic encephalopathy #Breakthrough seizure #Possible medication noncompliance #Hypoglycemia #Fentanyl overdose? #CBD abuse #Small vessel ischemic disease #Possible aspiration Pneumonia Admit Telemetry ABG normal Patient is protecting the airway Continue levetiracetam 500 mg BID NS + D5W 150CC/H Accuchecks every 4 h Lactic acid 1.4: pending CRP and ESR Pending hba1c Zosyn IV Breathing treatments Case discussed with Dr Prince Plan discussed with: Patient, Other (rn) My Orders Orders - RANJIT OSEI Procedure Category Date Status Time Admit ADMIT 08/04/24 Transmitted 22:40 Code Status CODE 08/04/24 Transmitted 22:40 Review Orders With MELANIA 08/04/24 In Process Adm.Md 22:40 Npo (Nothing By DIET 08/05/24 Transmitted Mouth) Diet Breakfast Oxygen By Face Mask RT 08/04/24 Transmitted 22:40 Notify Md Of Changes MELANIA 08/04/24 In Process From Base 22:40 Advance Directive MELANIA 08/04/24 In Process 22:40 Patient Condition ORDERS 08/04/24 Transmitted 22:40 Allergies MELANIA 08/04/24 In Process 22:40 Oxygen By Nasal RT 08/04/24 Transmitted Cannula 22:40 Stat Ekg For Chest MELANIA 08/04/24 In Process Pain 22:40 Notify Md Of Changes MELANIA 08/04/24 In Process From Base 22:40 Hospice Clinical Manager For MELANIA 08/04/24 In Process 24 Hours 22:40 Emergency Dysrhythmia MELANIA 08/04/24 In Process Protocol 22:40 Rhythm Strips Once MELANIA 08/04/24 In Process Every Shift 22:40 Insert/Manage Urinary MELANIA 08/04/24 In Process Catheter 22:43 Lorazepam 2mg/Ml Inj PHA 08/04/24 In Process (Ativan Inj) 22:45 D5w/Sod Chlo 0.9% PHA 08/05/24 In Process (D5w Ns 0.9%) 02:30 Date of Service: Aug 04, 2024 Billing Provider: BEN PRINCE MD Common Visit Codes: [id number] INP/OBS CARE (HIGH) RANJIT OSEI RESIDENT Aug 05, 2024 02:44 BEN PRINCE MD Aug 09, 2024 17:21
[2024-08-05] MEDS: D5W/SOD CHLO 0.9% 1,000 ML IV SCH (02:54)
[2024-08-05] MEDS: ACCU-CHEK COMFORT CURVE STRIP VI SCH (03:11)
[2024-08-05 03:55] LABS: Cannabinoid Screen, Urine Pos (NEGATIVE)
[2024-08-05 04:06] LABS: Amphetamine Screen, Urine Neg (NEGATIVE); Barbiturate Scree,Urine Neg (NEGATIVE); Benzodiazephine Screen, Urine Pos (NEGATIVE); Cocaine Screen, Urine Neg (NEGATIVE); Opiate Scree,Urine Neg (NEGATIVE); Phencyclidine Screen, Urine Neg (NEGATIVE)
--- NOTE | 2024-08-05 05:16 | DVH ---
EXAM: XR Chest, 1 View CLINICAL INDICATION: dyspnea TECHNIQUE: Frontal view of the chest. COMPARISON: CHEST PORTABLE on DOS: 09/04/19 FINDINGS: LUNGS AND PLEURAL SPACES: Left basilar atelectasis or pneumonia. Pulmonary venous congestion. No pneumothorax. HEART: Unremarkable. No cardiomegaly. MEDIASTINUM: Unremarkable. Normal mediastinal contour. BONES/JOINTS: Unremarkable. No acute fracture. OTHER FINDINGS: . IMPRESSION: 1. Left basilar atelectasis or pneumonia. 2. Pulmonary venous congestion.
[2024-08-05] MEDS: levETIRAcetam 500 mg/100ml 100 ML IV SCH (06:14)
[2024-08-05] MEDS ORDERED: IPRATROPIUM BROM 0.5 MG/2.5ML INH SOL NEB PRN (06:15)
[2024-08-05] MEDS ORDERED: ALBUTEROL SULF 2.5 MG/0.5ML(0.5%) NEB SOLN NEB PRN (06:15)
[2024-08-05] MEDS ORDERED: cefTRIAXone 1GM/50ML D5W 50 ML IV SCH (06:30)
[2024-08-05] MEDS ORDERED: AZITHROMYCIN 500MG/ 250ML 250 ML IV SCH (06:30)
[2024-08-05 08:27] LABS: Basophils # (auto) 0 10 ^3/uL (0-0.2); Basophils % (auto) 0.2 % (0.0-2.0); Eosinophils # (auto) 0 10 ^3/uL (0-0.8); Hemoglobin 14.8 g/dL (13.5-17.5); Lymphocytes # (auto) 0.8 10 ^3/uL (0.4-5.4); Lymphocytes % (auto) 7.3 % (10.0-50.0); Mean Corpuscular Hemoglobin 31.8 pg (28.0-32.0); Mean Corpuscular Hgb Conc. 33.6 g/dL (32.0-36.0); Mean Corpuscular Volume 94.5 fL (80.0-100.0); Monocytes # (auto) 0.2 10 ^3/uL (0-1.3); Monocytes % (auto) 1.5 % (0.0-12.0); Neutrophils # (auto) 9.9 10 ^3/uL (1.6-8.6); Nucleated Red Blood Cells % 0.1 %; Platelet Count (auto) 240 10^3/uL (140-450); Red Blood Cells 4.66 10^6/uL (4.5-5.90); Red Cell Distribution Width 13.3 % (11.8-14.3); White Blood Cell 10.8 10^3/uL (4.4-10.8)
[2024-08-05 08:50] LABS: Alanine Aminotransferase 17 U/L (7-40); Alkaline Phosphatase 65 U/L (46-116); Anion Gap 4 (5-15); Aspartate Aminotransferase 25 U/L (13-40); Blood Urea Nitrogen 11 mg/dL (9-23); Carbon Dioxide 26 mmol/L (20-31); Sodium 139 mmol/L (136-145); Total Protein 5.9 g/dL (5.7-8.2)
[2024-08-05 08:51] LABS: Bilirubin, Total 0.4 mg/dL (0.2-1.0); Calcium 8.4 mg/dL (8.7-10.4); Chloride 109 mmol/L (98-107); Glucose 121 mg/dL (74-106)
[2024-08-05 09:02] LABS: CRP High Sensitivity 2.41 mg/dL (<1.0)
[2024-08-05 09:04] LABS: Erythrocyte Sedimentation Rate 4 mm/hr (0-20)
[2024-08-05] MEDS ORDERED: VANCOMYCIN PER PHARMACY 0 MG IV SCH (09:15)
[2024-08-05] MEDS: ACETAMINOPHEN 325 MG TAB PO PRN (09:35)
[2024-08-05] MEDS: ONDANSETRON HCL 4 MG/2 ML VIAL IV STA (09:38)
[2024-08-05] MEDS: ONDANSETRON HCL 4 MG/2 ML VIAL IM ONE (09:45)
[2024-08-05] MEDS ORDERED: ONDANSETRON HCL 4 MG/2 ML VIAL IV PRN ×2 (09:45)
[2024-08-05] MEDS: HALOPERIDOL LACTATE 5 MG/ML INJ VIAL ONE (10:02)
--- NOTE | 2024-08-05 10:06 | DVH ---
EXAM: XY CHEST PORTABLE Indication: increased o2 need Technique: Single frontal view of the chest was obtained Comparison: XY CHEST XRAY 1 VIEW on DOS: 08/05/24, CHEST PORTABLE on DOS: 09/04/19 FINDINGS: Lines and Tubes: None Lungs: Multifocal left lung consolidative opacities. Pleura: No effusion. No pneumothorax. Cardiomediastinal contours: Unremarkable Bones: No acute osseous abnormality. IMPRESSION: Worsening multifocal left lung consolidative opacities suggestive of worsening pneumonia or edema.
[2024-08-05] MEDS: methylPREDNISolone SOD SUCC 125 MG/2 ML VL IV STA (10:07)
[2024-08-05] MEDS: HALOPERIDOL LACTATE 5 MG/ML INJ VIAL IM ONE (10:16)
[2024-08-05 10:27] LABS: Base Excess 0.3 mmol/L (-2.0-3.0)
[2024-08-05] MEDS: VANCOMYCIN 1GM/250ML KIT 250 ML IV SCH ×2 (10:30→21:10)
[2024-08-05] MEDS: NALOXONE HCL 0.4 MG/ML VIAL IV STA (10:34)
[2024-08-05] MEDS: SODIUM CHLORIDE 0.9% 1,000 ML IV ONE (10:38)
[2024-08-05] MEDS: KETOROLAC TROMETH 30 MG/ML 1ML VIAL IV STA (10:39)
[2024-08-05] MEDS: CEFEPIME 1GM/ 50ML 50 ML IV ONE (10:46)
[2024-08-05] MEDS: ACETAMINOPHEN 650 MG RECT SUPP PR PRN (11:25)
[2024-08-05 11:42] LABS: Base Excess -2.5 mmol/L (-2.0-3.0)
[2024-08-05 11:52] LABS: Alanine Aminotransferase 15 U/L (7-40); Albumin 3.5 g/dL (3.2-4.8); Alkaline Phosphatase 55 U/L (46-116); Anion Gap 3 (5-15); Aspartate Aminotransferase 24 U/L (13-40); BUN/Creatinine Ratio 10.5 (10.0-20.0); Bilirubin, Total 0.5 mg/dL (0.2-1.0); Blood Urea Nitrogen 10 mg/dL (9-23); Carbon Dioxide 26 mmol/L (20-31); Glucose 104 mg/dL (74-106); Potassium 3.7 mmol/L (3.5-5.1); Sodium 141 mmol/L (136-145)
[2024-08-05 12:00] LABS: Calcium 8.1 mg/dL (8.7-10.4); Chloride 112 mmol/L (98-107); Magnesium 1.5 mg/dL (1.6-2.6); Total Protein 5.3 g/dL (5.7-8.2)
[2024-08-05] MEDS ORDERED: PIPERACILLIN-TAZOB 3.375GM 100 ML IV SCH (12:00)
[2024-08-05] MEDS: fentaNYL Drip 2500mCg/250mlNS 250 ML IV ONE (12:01)
[2024-08-05] MEDS: ETOMIDATE (2MG/ML) 20ML VIAL IV ONE ×2 (12:02→12:10)
[2024-08-05] MEDS: ROCURONIUM 10MG/ML 10ML VIAL IV ONE ×2 (12:03→12:11)
[2024-08-05] MEDS: NOREPINEPHRINE 8 MG/250ML KIT 250 ML IV ONE (12:11)
[2024-08-05] MEDS: fentaNYL Drip 2500mCg/250mlNS 250 ML IV SCH (12:11)
[2024-08-05] MEDS: MIDAZOLAM DRIP 50 mg/50mL 50 ML IV ONE (12:12)
[2024-08-05] MEDS: MIDAZOLAM DRIP 50 mg/50mL 50 ML IV SCH (12:35)
[2024-08-05] MEDS: PROPOFOL 100 ML IV SCH (12:57)
[2024-08-05] MEDS: PROPOFOL 10 MG/ML 20 ML IV ONE (13:01)
[2024-08-05] MEDS: PROPOFOL 100 ML IV ONE (13:15)
--- NOTE | 2024-08-05 13:30 | DVH ---
EXAM: XY CHEST PORTABLE Indication: POST INTUBATION Technique: Single frontal view of the chest was obtained Comparison: XY CHEST PORTABLE on DOS: 08/05/24, XY CHEST XRAY 1 VIEW on DOS: 08/05/24, CHEST PORTABLE on DOS: 09/04/19 FINDINGS: Lines and Tubes: Endotracheal tube projects 6 cm above level the rayne. Lungs: Multifocal left lung consolidative opacities. Pleura: No effusion. No pneumothorax. Cardiomediastinal contours: Unremarkable Bones: No acute osseous abnormality. IMPRESSION: Endotracheal tube in appropriate position. Multifocal left lung consolidative opacities.
[2024-08-05] MEDS: NOREPINEPHRINE 8 MG/250ML KIT 250 ML IV SCH (13:32)
[2024-08-05] MEDS: ENOXAPARIN SOD 40 MG/0.4 ML SYRINGE SC ONE (13:48)
[2024-08-05] MEDS: PANTOPRAZOLE 40 MG/10 ML VIAL INJ IV ONE (13:48)
[2024-08-05] MEDS ORDERED: CEFEPIME 1GM/ 50ML 50 ML IV SCH (14:00)
[2024-08-05] MEDS: CEFEPIME 1GM/ 50ML 50 ML IV SCH (14:00)
--- NOTE | 2024-08-05 15:59 | DVH ---
EXAM: XR Chest, 1 View CLINICAL INDICATION: verification of central line and NGT placement. TECHNIQUE: Frontal view of the chest. COMPARISON: XY CHEST PORTABLE on DOS: 08/05/24, XY CHEST PORTABLE on DOS: 08/05/24, XY CHEST XRAY 1 VIE W on DOS: 08/05/24, CHEST PORTABLE on DOS: 09/04/19 FINDINGS: LUNGS AND PLEURAL SPACES: Pulmonary congestion and edema. Pneumonia cannot be excluded. Left basil ar atelectasis or pneumonia. No pneumothorax. HEART: Unremarkable. No cardiomegaly. MEDIASTINUM: Unremarkable. Normal mediastinal contour. BONES/JOINTS: Unremarkable. No acute fracture. TUBES, LINES AND DEVICES: The endotracheal tube (ETT) is in satisfactory position. Right internal jugular central venous catheter tip in the superior vena cava. OTHER FINDINGS: . IMPRESSION: 1. Pulmonary congestion and edema. Pneumonia cannot be excluded. 2. Left basilar atelectasis or pneumonia.
[2024-08-05 16:02] LABS: INR 1.25 (0.9-1.15); Partial Thromboplastin Time 33.1 SEC (24.5-34.5)
--- NOTE | 2024-08-05 16:10 | DVHNC2 ---
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 ) Indication: Hypotension, Volume resuscitation Room prepared for procedure: Yes Maintenance Department Manager performed hand hygien: Yes Maximal sterile barrier precau: Mask/Eye shield, Sterile gown, Cap, Sterlie gloves, Large sterlie drape Skin Preparation: Chlorhexidine gluconate Skin preparation completely dr: Yes Insertion site: Right, Internal jugular, Line secured Central line catheter type: [id number] dialysis Number of lumens: 3 Central line exchanged over a: No Antiseptic ointment applied to: Yes Post Assessment: Chest X-Ray, No Pneumothorax Informed consent obtained: Yes Risks/benefits/alt described: Yes UTO Consent Procedure supervised by Dr. Sampson Date of Service: Aug 05, 2024 Billing Provider: JARAD SAMPSON MD Common Visit Codes: PROCEDURE ONLY Procedure Codes: [id number] NON-TUNNEL CV CATH GENO CRANDALL RESIDENT Aug 05, 2024 16:10
[2024-08-05] MEDS: DOPamine 1600MCG/ML D5W 250 ML IV ONE (16:34)
[2024-08-05] MEDS: DOPamine 1600MCG/ML D5W 250 ML IV SCH (16:45)
--- NOTE | 2024-08-05 17:30 | DVHPNRES ---
Progress Note Date Seen: Aug 05, 2024 Resident Creating Document: GENO CRANDALL RESIDENT Medical Necessity Reason Pt with a Central, PICC or Fol: Yes The following are medically ne: Central Line Subjective Review of Systems Patient is 38 years old male with past medical history of seizure on Keppra was brought in by the EMS due to altered mental status. As per patient was having and suddenly passed out and starting having agonal respiration. Patient was poorly responsive. As per she started chest compression until the EMS arrived. Patient recently visited [facility] for seizure episode day before yesterday. History was taken mainly from . As per patient did not have any fever or chest pain no shortness a breath any sick contact or acute joint pain or swelling. Patient takes herbal medication called kratom which has stimulator and opiate effect. Initial lab workup revealed leukocytosis with WBC 11.7, UDS positive for fentanyl, benzo, cannabinoids, prolactin 18.7. CT scan negative for intracranial abnormality, CXR left basilar atelectasis or pneumonia, pulmonary venous congestion. Repeat x-ray revealed worsening multifocal left lung consolidation opacity suggestive of worsening pneumonia or edema. PMH-seizure PSH- right knee surgery Allergy- NKDA Personal History/ Social History-lives with family, use cannabinoids Patient was seen today at the bedside. Patient was seen today for clinical evaluation. Labs and chart reviewed. Patient had fever early in the morning 103 F. Follow up if patient developed respiratory distress and altered mental status. Blood sugar was 165. Due to patient's worsening respiratory distress and altered mental status. Patient likely had aspirated before and today morning as well. As patient was altered mental status patient was intubated at the ER. And patient was put on mechanical ventilation. Central line was placed in the right internal jugular vein. Ordered antibiotic cefepime and vancomycin. Patient on mechanical ventilation. Objective vital signs Vital Sign Date Time Temp Pulse Resp B/P (MAP) Pulse Ox O2 Delivery O2 Flow Rate FiO2 08/05/24 17:20 14 98 Mechanical Ventilator+ 30 30 08/05/24 17:15 53 117/53 (74) 08/05/24 17:01 98.3 98.3 08/05/24 07:30 5 Total Intake and Output 08/04/24 08/04/24 08/05/24 15:00 23:00 07:00 Intake Total 450 ml Balance 450 ml medications Current Medications Medications Dose Ordered Sig/Rosina Route Start Time Stop Time Status Last Admin Dose Admin Sodium Chloride 1,000 ml @ 60 mls/hr [id number] IV 08/04/24 22:45 Cancel Lorazepam 1 mg Q5MINP PRN IV 08/04/24 22:45 Dextrose/Sodium Chloride 1,000 ml @ 150 mls/hr Q6H40M IV 08/05/24 02:30 08/05/24 15:50 150 MLS/HR Diagnostic Test (Pha) 1 strip IQ4HR 08/05/24 02:45 08/05/24 16:00 1 STRIP Levetiracetam 100 ml @ 400 mls/hr BID IV 08/05/24 06:00 08/05/24 10:07 400 MLS/HR Albuterol 2.5 mg Q8HPRN PRN NEB 08/05/24 06:15 Ipratropium [place] 0.5 mg Q8HPRN PRN NEB 08/05/24 06:15 Acetaminophen 650 mg Q6HP PRN PO 08/05/24 08:30 Hold Cefepime HCl 50 ml @ 12.5 mls/hr Q8HR IV 08/05/24 14:00 Vancomycin HCl 0 ml @ 0 mls/hr UD IV 08/05/24 09:15 Methylprednisolone Sodium Succinate 80 mg BID IV 08/05/24 22:00 Ondansetron HCl 4 mg Q4HPRN PRN IV 08/05/24 09:45 Acetaminophen 650 mg Q6HP PRN ME 08/05/24 11:15 08/05/24 11:25 650 MG Pantoprazole Sodium 40 mg DAILY IV 08/06/24 10:00 Enoxaparin Sodium 40 mg DAILY SC 08/06/24 10:00 Midazolam HCl 50 ml @ 1 mls/hr Q24H IV 08/05/24 12:00 08/05/24 12:35 1 MLS/HR Fentanyl Citrate 250 ml @ 2.5 mls/hr Q24H IV 08/05/24 12:00 08/05/24 12:11 2.5 MLS/HR Norepinephrine Bitartrate 250 ml @ 3.75 mls/hr Q24H IV 08/05/24 12:00 08/05/24 13:32 3.75 MLS/HR Propofol 100 ml @ 2.55 mls/hr Q24H IV 08/05/24 13:00 08/05/24 12:57 2.55 MLS/HR Dopamine HCl/ Dextrose 250 ml @ 15.938 mls/ hr [id number] IV 08/05/24 16:45 08/05/24 16:45 15.938 MLS/HR Vancomycin HCl 250 ml @ 250 mls/hr Q8H IV 08/05/24 21:00 Examination General examination- patient on mechanical ventilation HEENT- PEERLA, no acute nasal discharge Cardiovascular- S1-S2 audible, rate and rhythm regular, no murmur Respiratory- bilateral lung crackles+ Gastrointestinal-nontender, bowel sound+. Nondistended Musculoskeletal-no acute joint swelling or tenderness or redness Lower extremity- no leg edema Neurological-bilateral contributed pupil Psychiatry- denies depression or SI or HI Skin- no acute rash or purpura laboratory and microbiology Laboratory Tests 08/05/24 09:49 08/05/24 08:10 Test 08/05/24 09:49 Range/Units Serum Glucose 104 74-106 mg/dL Problem List/Assessment/Plan Problem List/Assessment/Plan Assessment Sepsis likely due to aspiration pneumonia Acute hypoxic respiratory failure likely due to pneumonia Metabolic/toxic encephalopathy Altered mental status likely due to pneumonia/substance abuse/alcohol withdrawal Aspiration pneumonia Acute seizure could not rule out History of seizure disorder Suspected Meningoencephalitis Substance abuse Acute rhabdomyolysis Hyperammonemia Suspected alcohol withdrawal Hypomagnesemia-replenished Plan Continue mechanical ventilation Continue vasopressors as required Continue cefepime 1 g IV q.8h Continue vancomycin as per pharmacy protocol Continue levetiracetam as prescribed Continue IV fluid as prescribed Continue Levophed as prescribed Continue other medication as prescribed Nebulization as prescribed Pending blood culture, urine culture, sputum culture Maintain intake output chart Goals of care/advance care planning; FULL CODE; discussed with the patient >15 minutes PUD prophylaxis: Pantoprazole DVT prophylaxis: Lovenox Plan discussed with Dr. Cardona , nursing staff, patient Total time spent on patient evaluation, chart review, assessment and plan, discussion discussion >51 minutes Plan discussed with: Patient Plan discussed with: Patient, Spouse, Other (RN) My Orders My Orders Orders - GENO CRANDALL RESIDENT Procedure Category Date Status Time Acetaminophen Tablet PHA 08/05/24 In Process (Tylenol Tablet) 08:30 Blood Culture RACHAEL 08/05/24 In Process 08:25 Abg W/ Co-Ox RT 08/05/24 Logged 09:00 Respiratory Culture RACHAEL 08/05/24 In Process W/ Gs 09:09 Chest Portable XY 08/05/24 Resulted 09:09 Cefepime 1gm/ 50ml PHA 08/05/24 In Process (Maxipime 1gm/50ml) 14:00 Vancomycin Per PHA 08/05/24 In Process Pharmacy 09:15 * Radiologist Consult CONS 08/05/24 Transmitted 09:23 Methylprednisolone PHA 08/05/24 In Process Sod Succ (Solu Medrol 22:00 Urine Bacterial RACHAEL 08/05/24 Logged Culture 09:29 Complete Blood Count LAB 08/06/24 Verified 04:00 Pantoprazole PHA 08/06/24 In Process (Protonix) 10:00 Enoxaparin Sodium PHA 08/06/24 In Process (Lovenox) 10:00 Midazolam Drip 50 PHA 08/05/24 In Process Mg/50ml (Versed Drip 5 12:00 Fentanyl Drip PHA 08/05/24 In Process 2500mcg/250mlns 12:00 Norepinephrine 8 PHA 08/05/24 In Process Mg/250ml Kit 12:00 Ventilator Orders RT 08/05/24 Transmitted 12:25 Abg W/ Co-Ox RT 08/05/24 Logged 13:30 Chest Xray 1 View XY 08/05/24 Resulted 15:35 Mrsa Screen RACHAEL 08/05/24 Uncollected 15:47 Vancomycin 1gm/250ml PHA 08/05/24 In Process Kit 21:00 Vancomycin,Trough LAB 08/06/24 Verified 12:00 Vancomycin Per MELANIA 08/06/24 In Process Pharmacy Protoc 13:00 Creatinine LAB 08/06/24 Verified 04:00 Coding Comment Comment 38yo M with PMHx seizures on Keppra presenting with altered mental status. Recent visits to other hospitals in the region for status post seizure and ALOC. This was it with similar episode the patient was having agonal respirations and did some compressions. On admission workup CT head benign, prolactin mildly elevated, patient having febrile episodes tachycardia, agonal respirations, however ABG is normal. Tox shows positive for fentanyl, benzos, THC. TSH is within normal limits, no concern for DKA/[place]ul respirations. Ammonia is mildly elevated 53. Patient does have mildly elevated leukocytosis 11.7, tachycardia, febrile episodes, neutrophilia. CK is elevated. Chest x-ray has left lower lobe opacity, concerning for possible aspiration pneumonia given patient's seizure recently. Seizure at home was witnessed by only and no seizures in the facility/ED. Patient admitted for: Acute hypoxic respiratory failure to aspiration pneumonia Sepsis due to pneumonia and/or meningitis Acute toxic metabolic encephalopathy Meningitis possible Aspiration pneumonia Polysubstance abuse (opiates/fentanyl, benzodiazepines,) Breakthrough seizures Hypomagnesemia Hyperammonemia Leukocytosis Neutrophilia In ED patient was given naloxone, Ativan, Keppra load, IV fluids normal saline, D5 half-normal saline, ceftriaxone, azithromycin, Zosyn, med nebs. Following a.m. patient has acute decompensation as patient develops agonal respirations, RN calls MD for code assist. Patient was given further Narcan, Solu-Medrol, ABG normal, Zofran, patient put on BiPAP. Few hours later RT falls MD notifying of patient nonresponsive on BiPAP, decision to intubate given patient feeling to protect airway and aspiration risk given concern for chest x- ray with lower lobe opacities, status post seizure, concern for aspiration pneumonia/pneumonitis. Patient is intubated with Dr. De La Cruz PGY 1/Dr. Cardona. Patient starts to become more agitated and requiring fentanyl, Versed, propofol. Patient will be treated empirically as meningitis/aspiration pneumonia, maintenance IV fluids, allow for possible drug washout, continue intubation and pulm for vent management, neurology consult for breakthrough seizures possible, rectal Tylenol/p.r.n. Toradol for fevers, if fevers continue may have to rule out endocarditis, may require MRI brain deferred to Neurology., appreciate CBC insertion with Dr Crandall pgy1/Dr mendez pgy2/Dr Jamaal VELAZCO. Continue patient's management in ICU. Critical care time 80 minutes Code status discussion with family 32 minutes Endotracheal tube insertion procedure (Dr crandall pgy1, Dr Dulce VELAZCO) Central line CBC right IJ - see procedure note, by Dr Jamaal VELAZCO team (Dr Mendez pgy2) Date of Service: Aug 05, 2024 Billing Provider: SHARI MCDOWELL MD Common Visit Codes: [id number] CARE 30-74 MIN Secondary Visit Codes: [id number] CARE PLAN 30 MINUTES Procedure Codes: [id number] GENO CRANDALL Aug 05, 2024 17:30 SHARI MCDOWELL MD Aug 05, 2024 21:36
[2024-08-05] MEDS: MAGNESIUM SULFATE 1GM/100ML 100 ML IV ONE (18:51)
--- NOTE | 2024-08-05 19:03 | DVH ---
EXAM: XR Chest, 1 View CLINICAL INDICATION: OGT PLACEMENT TECHNIQUE: Frontal view of the chest. COMPARISON: XY CHEST XRAY 1 VIEW on DOS: 08/05/24, XY CHEST PORTABLE on DOS: 08/05/24, XY CHEST PORTABL E on DOS: 08/05/24, XY CHEST XRAY 1 VIEW on DOS: 08/05/24, CHEST PORTABLE on DOS: 09/04/19 FINDINGS: LUNGS AND PLEURAL SPACES: Congestion and edema. No pneumothorax. HEART: Unremarkable. No cardiomegaly. MEDIASTINUM: Unremarkable. Normal mediastinal contour. BONES/JOINTS: Unremarkable. No acute fracture. TUBES, LINES AND DEVICES: Right internal jugular central venous catheter tip in the superior vena c moises. The endotracheal tube (ETT) is in satisfactory position. Enteric tube tip in the stomach. OTHER FINDINGS: . IMPRESSION: Congestion and edema.
[2024-08-05] MEDS ORDERED: MAGNESIUM SULFATE 1GM/100ML 100 ML IV ONE (19:30)
[2024-08-05] MEDS: POTASSIUM CHL 20MEQ/100ML 100 ML IV SCH (21:50)
[2024-08-05] MEDS: MAGNESIUM SULFATE 1GM/100ML 100 ML IV SCH (21:50)
[2024-08-05] MEDS ORDERED: methylPREDNISolone SOD SUCC 125 MG/2 ML VL IV SCH (22:00)
[2024-08-05] MEDS: LACTULOSE 20Gm/30ML SOLN PO SCH (22:13)
[2024-08-05] MEDS: metroNIDAZOLE 500MG/100ML 100 ML IV SCH (22:14)
[2024-08-05] MEDS: D5W/SOD CHL 0.45% 1,000 ML IV SCH (22:20)
[2024-08-06] VITALS (111 sets, daily range): BP systolic 81–119; BP diastolic 40–67; PULSE 43–95; RESP 13–23; TEMP 98.6–99.5; O2SAT 87–100
[2024-08-06 03:44] LABS: Basophils # (auto) 0 10 ^3/uL (0-0.2); Basophils % (auto) 0.1 % (0.0-2.0); Eosinophils # (auto) 0 10 ^3/uL (0-0.8); Hematocrit 40.3 % (41.0-53.0); Hemoglobin 13.6 g/dL (13.5-17.5); Lymphocytes # (auto) 0.7 10 ^3/uL (0.4-5.4); Lymphocytes % (auto) 3.4 % (10.0-50.0); Mean Corpuscular Hemoglobin 31.8 pg (28.0-32.0); Mean Corpuscular Hgb Conc. 33.7 g/dL (32.0-36.0); Mean Corpuscular Volume 94.4 fL (80.0-100.0); Monocytes # (auto) 0.5 10 ^3/uL (0-1.3); Monocytes % (auto) 2.4 % (0.0-12.0); Neutrophils # (auto) 20.3 10 ^3/uL (1.6-8.6); Neutrophils % (auto) 94.1 % (37.0-80.0); Platelet Count (auto) 284 10^3/uL (140-450); Red Blood Cells 4.27 10^6/uL (4.5-5.90); Red Cell Distribution Width 13.1 % (11.8-14.3); White Blood Cell 21.6 10^3/uL (4.4-10.8)
[2024-08-06 04:06] LABS: Alkaline Phosphatase 60 U/L (46-116); Anion Gap 5 (5-15); Aspartate Aminotransferase 19 U/L (13-40); BUN/Creatinine Ratio 11.1 (10.0-20.0); Blood Urea Nitrogen 10 mg/dL (9-23); Calcium 8.8 mg/dL (8.7-10.4); Carbon Dioxide 26 mmol/L (20-31); Sodium 138 mmol/L (136-145)
[2024-08-06 04:07] LABS: Bilirubin, Total 0.5 mg/dL (0.2-1.0)
[2024-08-06 04:17] LABS: Chloride 107 mmol/L (98-107); Glucose 123 mg/dL (74-106); Magnesium 2.6 mg/dL (1.6-2.6)
[2024-08-06 04:39] LABS: Alanine Aminotransferase 15 U/L (7-40)
--- NOTE | 2024-08-06 05:38 | DVH ---
CHEST RADIOGRAPH Indication: ET Tube Placement Confirmation. Technique: Single frontal view of the chest was obtained Comparison: XY CHEST XRAY 1 VIEW on DOS: 08/05/24, XY CHEST XRAY 1 VIEW on DOS: 08/05/24, XY CHEST PORTAB LE on DOS: 08/05/24 IMPRESSION: Patient is rotated to the right. Support lines and tubes appear stable in satisfactory position. Sub segmental atelectasis in the right lower lung. Patchy airspace opacity in the left lung. No sizable effusion or pneumothorax.
[2024-08-06 06:59] LABS: Base Excess -1.7 mmol/L (-2.0-3.0)
[2024-08-06] MEDS: PANTOPRAZOLE 40 MG/10 ML VIAL INJ IV SCH (07:42)
[2024-08-06] MEDS: ENOXAPARIN SOD 40 MG/0.4 ML SYRINGE SC SCH (07:42)
[2024-08-06] MEDS: methylPREDNISolone SOD SUCC 125 MG/2 ML VL IV SCH (07:43)
--- NOTE | 2024-08-06 09:03 | MEDREC ---
[facility] Intervention Section I [facility] Intervention: Dose optimization(PK/PD) (PLEASE CONSIDER INCREASING DOSE OF CEFEPIME TO 2 G IV Q8HR (FOR GFR >60) TO COVER FOR POSSIBLE PNEUMONIA) [facility] Aug 06, 2024 09:03
[2024-08-06 09:23] LABS: Basophils # (auto) 0.1 10 ^3/uL (0-0.2); Basophils % (auto) 0.2 % (0.0-2.0); Eosinophils # (auto) 0 10 ^3/uL (0-0.8); Hematocrit 38.3 % (41.0-53.0); Hemoglobin 13.2 g/dL (13.5-17.5); Lymphocytes # (auto) 0.8 10 ^3/uL (0.4-5.4); Lymphocytes % (auto) 3.5 % (10.0-50.0); Mean Corpuscular Hemoglobin 32.5 pg (28.0-32.0); Mean Corpuscular Hgb Conc. 34.5 g/dL (32.0-36.0); Mean Corpuscular Volume 94.2 fL (80.0-100.0); Monocytes # (auto) 0.8 10 ^3/uL (0-1.3); Monocytes % (auto) 3.3 % (0.0-12.0); Neutrophils # (auto) 22.2 10 ^3/uL (1.6-8.6); Platelet Count (auto) 276 10^3/uL (140-450); Red Blood Cells 4.07 10^6/uL (4.5-5.90); Red Cell Distribution Width 13.2 % (11.8-14.3); White Blood Cell 23.9 10^3/uL (4.4-10.8)
[2024-08-06 09:49] LABS: Potassium 4.8 mmol/L (3.5-5.1); Sodium 140 mmol/L (136-145)
[2024-08-06 09:50] LABS: Anion Gap 4 (5-15); Carbon Dioxide 27 mmol/L (20-31)
[2024-08-06 09:52] LABS: Calcium 8.4 mg/dL (8.7-10.4); Chloride 109 mmol/L (98-107)
[2024-08-06 09:55] LABS: BUN/Creatinine Ratio 11.5 (10.0-20.0); Blood Urea Nitrogen 10 mg/dL (9-23)
[2024-08-06 10:03] LABS: Glucose 149 mg/dL (74-106)
--- NOTE | 2024-08-06 11:36 | ECG ---
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
[2024-08-06] MEDS: DOPamine 1600MCG/ML D5W 250 ML IV SCH (13:14)
--- NOTE | 2024-08-06 13:37 | DVHNC2 ---
Procedure - Bronchoscopy procedure note: Indications: Increased ET tube bloody secretions; rule out active hemorrhage, Possible mucous plugging. Medicines: See outside operator notes. Complications: None Procedure: Patient medications and allergies reviewed. The risks and benefits of the procedure and the sedation options and risk were discussed with the patient's healthcare proxy. All questions were answered and informed consent was obtain ed. Patient identification and proposed procedure were verified prior to the procedure by the physician, and a nurse, and the respiratory therapist in ICU room. The heart rate, respiratory rate, oxygen saturations, blood pressure, adequacy of pulmonary ventilation, and response to care were monitored throughout the procedure. The physical status of the patient was reassessed aft er the procedure. After obtaining informed consent, the bronchoscope was introduced through the endotracheal tube and advanced into the trachea bronchial tree of both lungs. The procedure was accomplished without difficulty. The patient tolerated the pr ocedure well. Findings: The trachea is in normal caliber. The rayne is sharp. The tracheobronchial tree of the right lung was examined to at least the first subsegmental level. The bronchial mucosa and anatomy in the right lung are normal. There are no endobronchial lesions. There was copious brownish secretions from right main stem bronchus onward throughout R6-R10. Right lower lobe (RLL) Bronchoalveolar lavage (BAL) obtained. RLL BAL sent for gram stain and culture and fungal culture. The left upper lobe, lingula, and left lower lobe were examined to at least the first subsegmental level. Bronchial mucosa and anatomy in the left upper lobe and lingula are normal. There were no endobronchial lesions. There was no secretions. There was no active bleeding at the completion of the procedure. Estimated blood loss: Less than 5 mL. Impression: Right lower lobe atelectasis due to mucous plugging Mucous plugging from R6-R10 RLL BAL performed Recommendation: Follow-up RLL BAL results. Procedure codes: 02174, bronchoscopy, rigid and flexible, including fluoroscopic guidance, one performed; with bronchial endobronchial broncho-alveolar lavage, single or multiple sites JOSE FROST MD Aug 06, 2024 13:37
[2024-08-06] MEDS: AZITHROMYCIN 500MG/ 250ML 250 ML IV ONE (13:59)
--- NOTE | 2024-08-06 15:19 | DVHSR ---
APPROVED REPORT EXAM: Two-dimensional and M-mode echocardiogram with Doppler and color Doppler. Blood Pressure: 107/52 mmHg INDICATION bradycardia RISK FACTORS Height: 5'10, Weight: 177 DIMENSIONS LVDd5.2 (3.8-5.7cm)LA (2D)5.4 (1.9-4.0cm)Aortic Root2.9 (2.0-3.7cm) LVDs3.5 (2.5-4.0cm)LA (MM) (1.9-4.0cm)Aortic Cusp Exc1.8 (1.5-2.0cm) EF (%) 60.0 (55-70%)Rt. Atrium5.2 (1.9-4.0cm)Asc. Aorta cm IVSd1.1 (0.7-1.1cm)RV (D) (1.8-2.4cm) PWd1.3 (0.7-1.1cm) Mitral Valve MitralMitral Stenosis E wave0.65m/sMV Mean GR.mmHg A wave0.63m/sMV Peak GR.mmHg E/A ratio1.02D MVAcm2 DECEL [id number] 1/2 Timems Aortic Valve Aortic ValveAortic Stenosis V11.02m/Hussein Mean GR.4mmHg V21.38m/Hussein Peak GR.8mmHg LVOT Diameter2.3 (1.8-2.4cm)Doppler AVA3.07cm2 Tricuspid Valve TR Velocity2.51m/s [id number] Other Information Technically limited study due to on vent. pt on right side Conclusion lvef 60% by visual estimate normal rv function normal atria no severe valve abnormalities noted
--- NOTE | 2024-08-06 16:24 | DVHPN2 ---
Subjective Intubated and sedated Reviewed: Care Plan, H&P, Labs, Medications, Previous Orders, Radiology, Other Changes from previous H/P or p: No Changes Objective Vitals Vital Signs Date Time Temp Pulse Resp B/P (MAP) Pulse Ox O2 Delivery O2 Flow Rate FiO2 08/06/24 16:07 20 98 Mechanical Ventilator+ 30 30 08/06/24 16:00 52 08/06/24 16:00 98.8 98/46 (63) 209.8 08/05/24 07:30 5 Intake/Output Intake and Output 08/06/24 07:00 Intake Total 4819.720 ml Output Total 4350 ml Balance 469.720 ml Intake IV Total 4819.720 ml Output Urine Total 4350 ml General Appearance: Other (Patient intubated and sedated.) HEENT: Atraumatic, Other (Pupils small and symmetric) Lungs: Other (Few crackles bilateral lungs with good air entry) Cardiovascular: Regular rate (Borderline bradycardia) Abdomen: Soft Extremities: No edema Medications Current Medications Medications Dose Ordered Sig/Rosina Route Start Time Stop Time Status Last Admin Dose Admin Sodium Chloride 1,000 ml @ 60 mls/hr [id number] IV 08/04/24 22:45 Cancel Lorazepam 1 mg Q5MINP PRN IV 08/04/24 22:45 Diagnostic Test (Pha) 1 strip IQ4HR 08/05/24 02:45 08/06/24 16:00 1 STRIP Levetiracetam 100 ml @ 400 mls/hr BID IV 08/05/24 06:00 08/06/24 07:41 400 MLS/HR Albuterol 2.5 mg Q8HPRN PRN NEB 08/05/24 06:15 Ipratropium [place] 0.5 mg Q8HPRN PRN NEB 08/05/24 06:15 Acetaminophen 650 mg Q6HP PRN PO 08/05/24 08:30 Hold Vancomycin HCl 0 ml @ 0 mls/hr UD IV 08/05/24 09:15 Ondansetron HCl 4 mg Q4HPRN PRN IV 08/05/24 09:45 Acetaminophen 650 mg Q6HP PRN DC 08/05/24 11:15 08/05/24 11:25 650 MG Pantoprazole Sodium 40 mg DAILY IV 08/06/24 10:00 08/06/24 07:42 40 MG Enoxaparin Sodium 40 mg DAILY SC 08/06/24 10:00 08/06/24 07:42 40 MG Midazolam HCl 50 ml @ 1 mls/hr Q24H IV 08/05/24 12:00 08/06/24 15:35 15 MLS/HR Fentanyl Citrate 250 ml @ 2.5 mls/hr Q24H IV 08/05/24 12:00 08/06/24 15:39 30 MLS/HR Norepinephrine Bitartrate 250 ml @ 3.75 mls/hr Q24H IV 08/05/24 12:00 08/05/24 13:32 3.75 MLS/HR Propofol 100 ml @ 2.55 mls/hr Q24H IV 08/05/24 13:00 08/06/24 02:39 2.55 MLS/HR Methylprednisolone Sodium Succinate 80 mg DAILY IV 08/06/24 10:00 08/06/24 07:43 80 MG Lactulose 30 ml BID PO 08/05/24 22:00 08/07/24 13:00 08/06/24 07:42 30 ML Metronidazole 100 ml @ 100 mls/hr Q8HR IV 08/05/24 22:00 08/06/24 13:10 100 MLS/HR Dextrose/Sodium Chloride 1,000 ml @ 100 mls/hr Q10H IV 08/05/24 21:45 08/05/24 22:20 100 MLS/HR Dopamine HCl/ Dextrose 250 ml @ 3.188 mls/ hr Q24H IV 08/06/24 12:45 08/06/24 13:14 12.75 MLS/HR Azithromycin 250 ml @ 125 mls/hr DAILY IV 08/07/24 10:00 Cefepime HCl 50 ml @ 12.5 mls/hr Q8HR IV 08/06/24 22:00 Vancomycin HCl 300 ml @ 200 mls/hr Q16H IV 08/06/24 18:00 Laboratory Results Laboratory Tests 08/06/24 08:50 Chemistry Test 08/06/24 03:10 08/06/24 08:50 Albumin 4.0 g/dL (3.2-4.8) Calcium Level 8.8 mg/dL (8.7-10.4) 8.4 mg/dL (8.7-10.4) L Magnesium Level 2.6 mg/dL (1.6-2.6) # Total Protein 6.0 g/dL (5.7-8.2) LFT Test 08/06/24 03:10 Alanine Aminotransferase (ALT) 15 U/L (7-40) Alkaline Phosphatase 60 U/L (46-116) Aspartate Amino Transferase (AST) 19 U/L (13-40) Total Bilirubin 0.5 mg/dL (0.2-1.0) Urinalysis Test 08/04/24 00:27 Urine Color Light-yellow (Yellow) Urine Clarity Clear (Clear) Urine pH 6.0 (5.0-9.0) Urine Specific [place] 1.017 (1.001-1.035) Urine Protein Negative (Negative) Urine Ketones Negative (Negative) Urine Blood Negative /uL (Negative) Urine Nitrite Negative (Negative) Urine Bilirubin Negative (Negative) Urine Urobilinogen Normal mg/dL (Negative) Urine Leukocyte Esterase Negative /uL (Negative) Urine RBC 1 /hpf (0 - 3) Urine Microscopic WBC 3 /HPF (0-3) Urine Squamous Epithelial Cells None seen /hpf (<5) Urine Bacteria None seen /hpf (None Seen) Urine Glucose Normal mg/dL (Normal) Blood Gas Results Test 08/06/24 06:41 Arterial Blood pH 7.366 (7.350-7.450) FiO2 % 30.0 Microbiology Microbiology Date/Time Source Procedure Growth Status 08/05/24 17:26 Nose MRSA Screen - Final Complete 08/05/24 12:18 Sputum Gram Stain - Final Resulted 08/05/24 12:18 Sputum Respiratory Culture - Preliminary Resulted 08/05/24 09:49 Blood Blood Culture - Preliminary NO GROWTH AFTER 24 HOURS OF INCUBATION. Resulted Assessment/Plan Assessment/Plan Respiratory failure with hypoxemia Pneumonia /left side Encephalopathy Possible alcohol withdrawal Seizures Rhabdomyolysis Status post bronchoscopy and mucus plug removal done today Worsening leukocytosis Plan: Add Azithromycin to cover for atypicals with worsening leukocytosis. CBC. CMP. Chest x-ray. ABGs. Vancomycin cefepime and Flagyl. Monitor heart rate. Thyroid normal. Further plan per orders. Total critical care time 35 minutes Plan discussed with: Other (Nursing. Pulmonology.) My Orders Orders - DAYNA PERKINS MD Procedure Category Date Status Time Azithromycin 500mg/ PHA 3/9/25 In Process 250ml (Zithromax 50 10:00 Complete Blood Count LAB 08/07/24 Verified 06:00 Comprehensive LAB 08/07/24 Verified Metabolic Panel 06:00 Chest Portable XY 08/07/24 Logged 06:00 Abg W/ Co-Ox RT 08/07/24 Logged 06:00 Cefepime 2gm/50ml Ns PHA 08/06/24 In Process (Maxipime 2gm/50ml) 22:00 Date of Service: Aug 06, 2024 Billing Provider: DAYNA PERKINS MD Common Visit Codes: [id number] CARE 30-74 MIN DAYNA PERKINS MD Aug 06, 2024 16:24
--- NOTE | 2024-08-06 17:20 | DVHINCON2 ---
[facility] JANE [facility] 08/06/24 1719: Date Seen: Aug 06, 2024 Referring Physician MD Reza Reason for Consultation Bradycardia History of Present Illness This is a 38-year-old male patient who presents to the emergency room with chief complaint of altered level of consciousness. At the time of assessment, the patient was chemically sedated and mechanically ventilated. The who was at bedside was able to give a accurate description of events leading to emergency room arrival. Per the patient's , they were at home eating dinner when suddenly the patient became unresponsive. She states that she went to wake him and the patient appeared to be agonal breathing. She reports starting CPR despite patient having respirations and a pulse. EMS arrived and the patient was brought to the emergency room. While in the emergency room, the patient was intubated for airway protection. Cardiology has been consulted at this time for bradycardia. Initial twelve lead electrocardiogram reveals sinus bradycardia without any pauses or atrioventricular blocks. Initial troponin level was negative. Significant past medical history includes hypertension, multiple traumatic brain injuries, seizures, nicotine use and previous alcoholism. The patient's reports that the patient has been in and out of hospitals in this area and has been diagnosed with seizures and vertigo. The patient's is adamant that she believes something else is going on as the patient has been having generalized weakness over the last few weeks and she has noticed him de teriorating. The patient's mentions that the patient started taking a supplement called "Kratom", and states all of these symptoms began after he started taking the supplement. [facility] Past Medical History Past medical history reviewed. No other significant than mentioned above. Past Surgical History Appendectomy Family History: Patient reports no known family medical history. Family History Family history reviewed. Social History Vapes daily Patient used to have alcohol abuse, has been sober for five years per patient's Occasional marijuana use. Toxicology screen positive for fentanyl, amphetamines, benzodiazepines, and cannabinoids Allergies: Coded Allergies: NO KNOWN ALLERGIES (Unverified , 09/04/19) Home Meds Active Scripts Hydrocodone-Acetaminophen (Hydrocodone Bitartrate/AC 10-325 mg) 1 Tab Tab, 1 TAB PO Q6HP PRN, #10 TAB Prov:JOLIE PATEL MD 07/17/24 Ibuprofen Micronized (Ibuprofen) 800 Mg Tab, 800 MG PO Q8HP PRN, #30 TAB prn pain, take with food Prov:JOLIE PATEL MD 07/17/24 Meclizine HCl (Meclizine 25) 25 Mg Tab, 25 MG PO TID PRN, #30 TAB prn dizziness Prov:JOLIE PATEL MD 07/17/24 Reported Medications Lisinopril (Lisinopril) 5 Mg Tab, 5 MG PO DAILY for 30 Days, MG 09/05/19 Home Meds Home medications reviewed. Current Medications Current Medications Medications (Trade) Dose Ordered Sig/Rosina Route PRN Reason Start Time Stop Time Status Last Admin Methylprednisolone Sodium Succinate (Solu Medrol) 80 mg BID IV 08/05/24 22:00 08/05/24 21:41 DC Pantoprazole Sodium (Protonix) 40 mg DAILY IV 08/06/24 10:00 08/06/24 07:42 Enoxaparin Sodium (Lovenox) 40 mg DAILY SC 08/06/24 10:00 08/06/24 07:42 Vancomycin HCl 250 ml @ 250 mls/hr Q8H IV 08/05/24 21:00 08/06/24 16:07 DC 08/06/24 05:30 Magnesium Sulfate/ Dextrose 100 ml @ 100 mls/hr Q1HR IV 08/05/24 20:00 08/05/24 21:59 DC 08/05/24 22:13 Potassium Chloride 100 ml @ 50 mls/hr Q2H IV 08/05/24 18:45 08/05/24 22:44 DC 08/05/24 22:14 Methylprednisolone Sodium Succinate (Solu Medrol) 80 mg DAILY IV 08/06/24 10:00 08/06/24 07:43 Lactulose 30 ml BID PO 08/05/24 22:00 08/07/24 13:00 08/06/24 07:42 Metronidazole 100 ml @ 100 mls/hr Q8HR IV 08/05/24 22:00 08/06/24 13:10 Dextrose/Sodium Chloride 1,000 ml @ 100 mls/hr Q10H IV 08/05/24 21:45 08/06/24 16:50 Dopamine HCl/ Dextrose 250 ml @ 3.188 mls/ hr Q24H IV 08/06/24 12:45 3/8/25 13:14 Azithromycin 250 ml @ 125 mls/hr DAILY IV 08/07/24 10:00 Cefepime HCl 50 ml @ 12.5 mls/hr Q8HR IV 08/06/24 22:00 Vancomycin HCl 300 ml @ 200 mls/hr Q16H IV 08/06/24 18:00 Review of Systems Constitutional: Generalized weakness Ears, Nose, & Throat: No symptom reported Eyes: No symptom reported Neurological: No symptoms reported Pulmonary/Respiratory: No symptoms reported Cardiovascular: No symptom reported Gastrointestinal: No symptom reported Genitourinary: No symptom reported Musculoskeletal: No symptom reported Skin: No symptom reported Psychiatric: No symptom reported Endocrine: No symptom reported Hematologic/Lymphatic: No symptom reported Vital Signs Vital Signs Date Time Temp Pulse Resp B/P (MAP) Pulse Ox O2 Delivery O2 Flow Rate FiO2 08/06/24 16:30 98.8 53 20 101/46 (64) 95 209.8 08/06/24 16:07 Mechanical Ventilator+ 30 30 08/05/24 07:30 5 Physical Exam General Appearance: Calm Pulmonary/Respiratory: Clear, bilateral breaths sounds. Mechanically ventilated Cardiovascular/Chest: Regular rate and rhythm. Peripheral Pulses: 2+ Radial (R). 2+ Radial (L). 2+ Pedal (R). 2+ Pedal (L) Abdominal Exam: Normal bowel sounds. Ankle Exam: Negative ankle edema Lower extremities: Negative lower extremity edema Neuro/Mental Status: Chemically sedated Thoughts/Psych: Deferred Appearance: No acute distress. Skin Exam: Normal inspection. Normal color. Warm and dry. Labs/Diagnostic Data Labs Test 08/06/24 15:55 08/06/24 14:34 08/06/24 13:45 08/06/24 08:50 Range/Units POC Glucose 160 H 70-106 mg/dl Vancomycin Level Trough 7.4 5-10 ug/mL Lactic Acid Level 0.9 0.4-2.0 mmol/L White Blood Count 23.9 H 4.4-10.8 10^3/uL Red Blood Count 4.07 L 4.5-5.90 10^6/uL Hemoglobin 13.2 L 13.5-17.5 g/dL Hematocrit 38.3 L 41.0-53.0 % Mean Corpuscular Volume 94.2 80.0-100.0 fL Mean Corpuscular Hemoglobin 32.5 H 28.0-32.0 pg Mean Corpuscular Hemoglobin Concent 34.5 32.0-36.0 g/dL Red Cell Distribution Width 13.2 11.8-14.3 % Platelet Count 276 140-450 10^3/uL Mean Platelet Volume 7.7 6.9-10.8 fL Neutrophils (%) (Auto) 93.0 H 37.0-80.0 % Lymphocytes (%) (Auto) 3.5 L 10.0-50.0 % Monocytes (%) (Auto) 3.3 0.0-12.0 % Eosinophils (%) (Auto) 0.0 0.0-7.0 % Basophils (%) (Auto) 0.2 0.0-2.0 % Neutrophils # (Auto) 22.2 H 1.6-8.6 10 ^3/uL Lymphocytes # (Auto) 0.8 0.4-5.4 10 ^3/uL Monocytes # (Auto) 0.8 0-1.3 10 ^3/uL Eosinophils # (Auto) 0 0-0.8 10 ^3/uL Basophils # (Auto) 0.1 0-0.2 10 ^3/uL Nucleated Red Blood Cells 0.0 % Sodium Level 140 136-145 mmol/L Potassium Level 4.8 3.5-5.1 mmol/L Chloride Level 109 H 98-107 mmol/L Carbon Dioxide Level 27 20-31 mmol/L Anion Gap 4 L 5-15 Blood Urea Nitrogen 10 9-23 mg/dL Creatinine 0.87 0.700-1.30 mg/dL Glomerular Filtration Rate Calc 112 >90 mL/min BUN/Creatinine Ratio 11.5 10.0-20.0 Serum Glucose 149 H 74-106 mg/dL Calcium Level 8.4 L 8.7-10.4 mg/dL Test 08/06/24 06:41 08/06/24 03:10 08/05/24 15:39 08/05/24 11:22 Range/Units Blood Gas Specimen Type Arterial Blood Gas Sample Site Right radial Blood Gas Patient Temperature 37.0 Arterial Blood Date Drawn [id number] Arterial Blood pH 7.366 7.350-7.450 Arterial Blood Partial Pressure CO2 42.1 35.0-48.0 mmHg Arterial Blood Partial Pressure O2 88.1 83.0-108.0 mmHg Arterial Blood HCO3 23.6 21.0-28.0 mmol/L Arterial Blood Oxygen Saturation 96.6 94.0-98.0 % Arterial Blood Base Excess -1.7 -2.0-3.0 mmol/L Arterial Blood Oxyhemoglobin 95.7 94.0-98.0 % Arterial Blood Carboxyhemoglobin 0.8 0.5-1.5 % Arterial Blood Methemoglobin 0.1 0.0-1.5 % Scar Test Modified Blood Gas Total Hemoglobin 14.00 13.5-17.5 g/dL Blood Gas Set Respiration Rate 20.0 Blood Gas Modality Vent - ac FiO2 % 30.0 Blood Gas Tidal Volume 500.0 Blood Gas PEEP or CPAP 5.0 Magnesium Level 2.6 # 1.6-2.6 mg/dL Total Bilirubin 0.5 0.2-1.0 mg/dL Aspartate Amino Transferase (AST) 19 13-40 U/L Alanine Aminotransferase (ALT) 15 7-40 U/L Alkaline Phosphatase 60 46-116 U/L Total Protein 6.0 5.7-8.2 g/dL Albumin 4.0 3.2-4.8 g/dL Prothrombin Time 13.0 H 9.3-11.8 sec Prothrombin Time INR 1.25 H 0.9-1.15 Activated Partial Thromboplast Time 33.1 24.5-34.5 SEC Blood Gas EPAP 5 Blood Gas IPAP 10 Test 08/05/24 09:49 08/05/24 09:15 08/05/24 08:10 08/04/24 22:41 Range/Units Ammonia 53 H 11-32 umol/L Blood Gas Liter Flow 15.00 Erythrocyte Sedimentation Rate 4 0-20 mm/hr Hemoglobin A1c 4.6 <5.7 % A1C Creatine Kinase 764 H 46-171 U/L C-Reactive Protein High Sensitivity 2.41 H <1.0 mg/dL Thyroid Stimulating Hormone (TSH) 1.51 0.55-4.78 uIU/mL Blood Gas Spontaneous Rate 18 Test 08/04/24 22:05 08/04/24 20:30 08/04/24 00:27 Range/Units Plasma/Serum Blood Alcohol < 3.0 <10 mg/dL Troponin I High Sensitivity 19 </=54 ng/L Prolactin 18.76 H 2.1-17.7 ng/mL Urine Color Light-yellow Yellow Urine Clarity Clear Clear Urine pH 6.0 5.0-9.0 Urine Specific [place] 1.017 1.001-1.035 Urine Protein Negative Negative Urine Ketones Negative Negative Urine Blood Negative Negative /uL Urine Nitrite Negative Negative Urine Bilirubin Negative Negative Urine Urobilinogen Normal Negative mg/dL Urine Leukocyte Esterase Negative Negative /uL Urine RBC 1 0 - 3 /hpf Urine Microscopic WBC 3 0-3 /HPF Urine Squamous Epithelial Cells None seen <5 /hpf Urine Bacteria None seen None Seen /hpf Urine Glucose Normal Normal mg/dL Urine Opiates Screen Neg NEGATIVE Urine Fentanyl Screen Pos NEGATIVE Urine Barbiturates Screen Neg NEGATIVE Urine Phencyclidine Screen Neg NEGATIVE Urine Amphetamines Screen Neg NEGATIVE Urine Benzodiazepines Screen Pos NEGATIVE Urine Cocaine Screen Neg NEGATIVE Urine Cannabinoids Screen Pos NEGATIVE Microbiology Date/Time Source Procedure Growth Status 08/05/24 17:26 Nose MRSA Screen - Final Complete 08/05/24 12:18 Sputum Gram Stain - Final Resulted 08/05/24 12:18 Sputum Respiratory Culture - Preliminary Resulted 08/05/24 09:49 Blood Blood Culture - Preliminary NO GROWTH AFTER 24 HOURS OF INCUBATION. Resulted Assessment Sinus bradycardia History of hypertension Acute hypoxic respiratory failure Sepsis Seizures Traumatic brain injury Polysubstance abuse Plan/Recommendation We will continue with following plan/recommendations (Dr. Lacey): * Transthoracic echocardiogram reveals EF 60% * Avoid AV umer blocking agents * Titrate the patient off of dopamine drip as tolerated * Consider switching sedations as propofol can cause bradycardia * Close Cardiac surveillance * Notify cardiology team immediately for any ECG changes Patient seen and examined at bedside with . At this time, the patient remains in sinus bradycardia without any evidence of pauses or atrioventricular blocks. No indication at this time for temporary or permanent pacemaker. Please titrate patient off of dopamine drip as tolerated. Thank you for allowing us to care for this patient. Please call with any questions or concerns. Critical care time spent: 44 minutes This medical document was created using an electronic medical record system with voice recognition software and computerized dictation system. Although this document has been carefully reviewed, there might still be some phonetic and typographical errors. Occasional wrong-word or ``sound-alike substitutions may have occurred due to the inherent limitations of voice recognition software. These areas are purely typographical due to imperfections of the software programs and do not reflect any compromise in the patient's medical care. Please read the chart carefully and recognize, using context, where these substitutions have occurred. Plan discussed with: Spouse, Other (Bedside RN) NYHA Physical activity limitations: NA Date of Service: Aug 06, 2024 Billing Provider: MARVIN JANE Cardiology Common Codes: 33151-[id number] INP/OBS CARE (High) Cardiology Consultation Codes: [id number] CONSULT <45MIN GREG LACEY MD 08/08/24 0829: Family History: Patient reports no known family medical history. Allergies: Coded Allergies: NO KNOWN ALLERGIES (Unverified , 09/04/19) Home Meds Active Scripts Hydrocodone-Acetaminophen (Hydrocodone Bitartrate/AC 10-325 mg) 1 Tab Tab, 1 TAB PO Q6HP PRN, #10 TAB Prov:JOLIE PATEL MD 07/17/24 Ibuprofen Micronized (Ibuprofen) 800 Mg Tab, 800 MG PO Q8HP PRN, #30 TAB prn pain, take with food Prov:JOLIE PATEL MD 07/17/24 Meclizine HCl (Meclizine 25) 25 Mg Tab, 25 MG PO TID PRN, #30 TAB prn dizziness Prov:JOLIE PATEL MD 07/17/24 Reported Medications Lisinopril (Lisinopril) 5 Mg Tab, 5 MG PO DAILY for 30 Days, MG 09/05/19 Plan/Recommendation AGREE WITH BRAKES INSPECTOR ASSESSMENT AND PLAN PT SEEN WITH BRAKES INSPECTOR AND BASEBALL GLOVE STUFFER PROPOFOL CAN CAUSE ANDRÉS WEAN OFF DOPAMINE, NOT NECESSARY SINUS ANDRÉS, TELE STABLE MARVIN JANE Aug 06, 2024 17:19 GREG LACEY MD Aug 08, 2024 08:29
[2024-08-06] MEDS: VANCOMYCIN 1.5GM/300ML 300 ML IV SCH (18:02)
--- NOTE | 2024-08-06 19:56 | DVHINCON2 ---
Date of service: Aug 06, 2024 Referring Physician Tammie Mcclain MD Reason for Consultation Acute hypoxic respiratory failure requiring mechanical ventilator History of Present Illness A 38-year-old man with past medical history of seizures, on levetiracetam 500 mg BID, who was brought to ED by EMS on 08/05/24 for altered mental status. Per EMS, pt had a witnessed seizure at home, followed by agonal respirations. His in itiated chest compressions until EMS arrived. Upon their arrival, the patient had pulses but continued with agonal respirations. Patient received 8 mg of Narcan upon arrival to ED. He remained postictal, confused, and unresponsive to verbal stimuli but responsive to painful stimuli. Pupils were pinpoint. Initial workup showed hypoglycemia. CMP otherwise unremarkable. Blood gases normal; VO2 94% on nasal cannula. Prolactin borderline at 18. UA negative for ketones. Toxicology was positive for BZD, fentanyl and CBD. CT head showed patchy periventricular and subcortical white matter hypodensities, likely representing small vessel ischemic disease, with no acute findings Initial twelve lead electrocardiogram revealed sinus bradycardia without any pauses or atrioventricular blocks. Initial troponin level was negative. Patient was admitted for further care, and pulmonary consultation is requested for evaluation and management of acute hypoxic respiratory failure requiring mechanical ventilator. Review of Systems: 14-point review of systems negative unless otherwise noted above. Past Medical History: Seizure disorder, hypertension, multiple traumatic brain injuries Past Surgical History: None. Medications: Reviewed. Allergies: No known drug allergies. Family History: No family history of premature CAD. No family history of lung disorders. Social History: Smoker. Previous alcohol use. Positive marijuana use. Family History: Patient reports no known family medical history. Allergies: Coded Allergies: NO KNOWN ALLERGIES (Unverified , 09/04/19) Home Meds Active Scripts Hydrocodone-Acetaminophen (Hydrocodone Bitartrate/AC 10-325 mg) 1 Tab Tab, 1 TAB PO Q6HP PRN, #10 TAB Prov:JOLIE PATEL MD 07/17/24 Ibuprofen Micronized (Ibuprofen) 800 Mg Tab, 800 MG PO Q8HP PRN, #30 TAB prn pain, take with food Prov:JOLIE PATEL MD 07/17/24 Meclizine HCl (Meclizine 25) 25 Mg Tab, 25 MG PO TID PRN, #30 TAB prn dizziness Prov:JOLIE PATEL MD 07/17/24 Reported Medications Lisinopril (Lisinopril) 5 Mg Tab, 5 MG PO DAILY for 30 Days, MG 09/05/19 Current Medications Current Medications Medications (Trade) Dose Ordered Sig/Rosina Route PRN Reason Start Time Stop Time Status Last Admin Methylprednisolone Sodium Succinate (Solu Medrol) 80 mg BID IV 08/05/24 22:00 08/05/24 21:41 DC Pantoprazole Sodium (Protonix) 40 mg DAILY IV 08/06/24 10:00 08/06/24 07:42 Enoxaparin Sodium (Lovenox) 40 mg DAILY SC 08/06/24 10:00 08/06/24 07:42 Vancomycin HCl 250 ml @ 250 mls/hr Q8H IV 08/05/24 21:00 08/06/24 16:07 DC 08/06/24 05:30 Magnesium Sulfate/ Dextrose 100 ml @ 100 mls/hr Q1HR IV 08/05/24 20:00 08/05/24 21:59 DC 08/05/24 22:13 Methylprednisolone Sodium Succinate (Solu Medrol) 80 mg DAILY IV 08/06/24 10:00 08/06/24 07:43 Lactulose 30 ml BID PO 08/05/24 22:00 08/07/24 13:00 08/06/24 07:42 Metronidazole 100 ml @ 100 mls/hr Q8HR IV 08/05/24 22:00 08/06/24 13:10 Dextrose/Sodium Chloride 1,000 ml @ 100 mls/hr Q10H IV 08/05/24 21:45 08/06/24 16:50 Dopamine HCl/ Dextrose 250 ml @ 3.188 mls/ hr Q24H IV 08/06/24 12:45 08/06/24 13:14 Azithromycin 250 ml @ 125 mls/hr DAILY IV 08/07/24 10:00 Cefepime HCl 50 ml @ 12.5 mls/hr Q8HR IV 08/06/24 22:00 Vancomycin HCl 300 ml @ 200 mls/hr Q16H IV 08/06/24 18:00 08/06/24 18:02 Vital Signs Vital Signs Date Time Temp Pulse Resp B/P (MAP) Pulse Ox O2 Delivery O2 Flow Rate FiO2 08/06/24 19:00 99.1 47 20 101/46 64 97 210.4 08/06/24 18:18 30 08/06/24 17:34 Mechanical Ventilator+ 08/05/24 07:30 5 Physical Exam Gen.: Patient lying in bed in medical ICU. Sedated, intubated on mechanical ventilator. Head: Normocephalic, atraumatic. Eyes: PERRLA. Ears: Normal external anatomy. Throat: Endotracheal tube and orogastric tube in place. Neck: Supple, trachea midline. Chest: Transmitted breath sounds bilaterally. Decreased air entry bilaterally. No wheezing. Bibasilar crackles. Cardiovascular: Positive S1, positive S2. Regular rate and rhythm. Abdomen: Positive bowel sounds in all 4 quadrants. Soft, nontender, nondistended. : Lopez in place. Normal external genitalia. Rectal: Deferred. Skin: Warm, dry. Intact. Extremities: 2+ radial pulses bilaterally. No lower extremity edema. Neuro: Sedated. Labs/Diagnostic Data Labs Test 08/06/24 15:55 08/06/24 14:34 08/06/24 13:45 08/06/24 08:50 Range/Units POC Glucose 160 H 70-106 mg/dl Vancomycin Level Trough 7.4 5-10 ug/mL Lactic Acid Level 0.9 0.4-2.0 mmol/L White Blood Count 23.9 H 4.4-10.8 10^3/uL Red Blood Count 4.07 L 4.5-5.90 10^6/uL Hemoglobin 13.2 L 13.5-17.5 g/dL Hematocrit 38.3 L 41.0-53.0 % Mean Corpuscular Volume 94.2 80.0-100.0 fL Mean Corpuscular Hemoglobin 32.5 H 28.0-32.0 pg Mean Corpuscular Hemoglobin Concent 34.5 32.0-36.0 g/dL Red Cell Distribution Width 13.2 11.8-14.3 % Platelet Count 276 140-450 10^3/uL Mean Platelet Volume 7.7 6.9-10.8 fL Neutrophils (%) (Auto) 93.0 H 37.0-80.0 % Lymphocytes (%) (Auto) 3.5 L 10.0-50.0 % Monocytes (%) (Auto) 3.3 0.0-12.0 % Eosinophils (%) (Auto) 0.0 0.0-7.0 % Basophils (%) (Auto) 0.2 0.0-2.0 % Neutrophils # (Auto) 22.2 H 1.6-8.6 10 ^3/uL Lymphocytes # (Auto) 0.8 0.4-5.4 10 ^3/uL Monocytes # (Auto) 0.8 0-1.3 10 ^3/uL Eosinophils # (Auto) 0 0-0.8 10 ^3/uL Basophils # (Auto) 0.1 0-0.2 10 ^3/uL Nucleated Red Blood Cells 0.0 % Sodium Level 140 136-145 mmol/L Potassium Level 4.8 3.5-5.1 mmol/L Chloride Level 109 H 98-107 mmol/L Carbon Dioxide Level 27 20-31 mmol/L Anion Gap 4 L 5-15 Blood Urea Nitrogen 10 9-23 mg/dL Creatinine 0.87 0.700-1.30 mg/dL Glomerular Filtration Rate Calc 112 >90 mL/min BUN/Creatinine Ratio 11.5 10.0-20.0 Serum Glucose 149 H 74-106 mg/dL Calcium Level 8.4 L 8.7-10.4 mg/dL Test 08/06/24 06:41 08/06/24 03:10 08/05/24 15:39 08/05/24 11:22 Range/Units Blood Gas Specimen Type Arterial Blood Gas Sample Site Right radial Blood Gas Patient Temperature 37.0 Arterial Blood Date Drawn [id number] Arterial Blood pH 7.366 7.350-7.450 Arterial Blood Partial Pressure CO2 42.1 35.0-48.0 mmHg Arterial Blood Partial Pressure O2 88.1 83.0-108.0 mmHg Arterial Blood HCO3 23.6 21.0-28.0 mmol/L Arterial Blood Oxygen Saturation 96.6 94.0-98.0 % Arterial Blood Base Excess -1.7 -2.0-3.0 mmol/L Arterial Blood Oxyhemoglobin 95.7 94.0-98.0 % Arterial Blood Carboxyhemoglobin 0.8 0.5-1.5 % Arterial Blood Methemoglobin 0.1 0.0-1.5 % Scar Test Modified Blood Gas Total Hemoglobin 14.00 13.5-17.5 g/dL Blood Gas Set Respiration Rate 20.0 Blood Gas Modality Vent - ac FiO2 % 30.0 Blood Gas Tidal Volume 500.0 Blood Gas PEEP or CPAP 5.0 Magnesium Level 2.6 # 1.6-2.6 mg/dL Total Bilirubin 0.5 0.2-1.0 mg/dL Aspartate Amino Transferase (AST) 19 13-40 U/L Alanine Aminotransferase (ALT) 15 7-40 U/L Alkaline Phosphatase 60 46-116 U/L Total Protein 6.0 5.7-8.2 g/dL Albumin 4.0 3.2-4.8 g/dL Prothrombin Time 13.0 H 9.3-11.8 sec Prothrombin Time INR 1.25 H 0.9-1.15 Activated Partial Thromboplast Time 33.1 24.5-34.5 SEC Blood Gas EPAP 5 Blood Gas IPAP 10 Test 08/05/24 09:49 08/05/24 09:15 08/05/24 08:10 08/04/24 22:41 Range/Units Ammonia 53 H 11-32 umol/L Blood Gas Liter Flow 15.00 Erythrocyte Sedimentation Rate 4 0-20 mm/hr Hemoglobin A1c 4.6 <5.7 % A1C Creatine Kinase 764 H 46-171 U/L C-Reactive Protein High Sensitivity 2.41 H <1.0 mg/dL Thyroid Stimulating Hormone (TSH) 1.51 0.55-4.78 uIU/mL Blood Gas Spontaneous Rate 18 Test 08/04/24 22:05 08/04/24 20:30 08/04/24 00:27 Range/Units Plasma/Serum Blood Alcohol < 3.0 <10 mg/dL Troponin I High Sensitivity 19 </=54 ng/L Prolactin 18.76 H 2.1-17.7 ng/mL Urine Color Light-yellow Yellow Urine Clarity Clear Clear Urine pH 6.0 5.0-9.0 Urine Specific [place] 1.017 1.001-1.035 Urine Protein Negative Negative Urine Ketones Negative Negative Urine Blood Negative Negative /uL Urine Nitrite Negative Negative Urine Bilirubin Negative Negative Urine Urobilinogen Normal Negative mg/dL Urine Leukocyte Esterase Negative Negative /uL Urine RBC 1 0 - 3 /hpf Urine Microscopic WBC 3 0-3 /HPF Urine Squamous Epithelial Cells None seen <5 /hpf Urine Bacteria None seen None Seen /hpf Urine Glucose Normal Normal mg/dL Urine Opiates Screen Neg NEGATIVE Urine Fentanyl Screen Pos NEGATIVE Urine Barbiturates Screen Neg NEGATIVE Urine Phencyclidine Screen Neg NEGATIVE Urine Amphetamines Screen Neg NEGATIVE Urine Benzodiazepines Screen Pos NEGATIVE Urine Cocaine Screen Neg NEGATIVE Urine Cannabinoids Screen Pos NEGATIVE Microbiology Date/Time Source Procedure Growth Status 08/05/24 17:26 Nose MRSA Screen - Final Complete 08/05/24 12:18 Sputum Gram Stain - Final Resulted 08/05/24 12:18 Sputum Respiratory Culture - Preliminary Resulted 08/05/24 09:49 Blood Blood Culture - Preliminary NO GROWTH AFTER 24 HOURS OF INCUBATION. Resulted Assessment Impression: Acute hypoxic respiratory failure On mechanical ventilator Status epilepticus Marijuana use Shock, septic vs. cardiogenic. Bradycardia Nicotine dependence Plan: s/p intubation on mechanical ventilator. CXR image and report reviewed. Devices in place. Subsegmental atelectasis in the right lower lung. Patchy airspace opacity in the left lung. No effusion or pneumothorax. ABG reviewed, compensated. On AC mode;RR 20, VT 500, PEEP 5, FiO2 30% Titrate FIO2 to keep O2 saturation above 90%. VAP bundle. Daily ABG and CXR while intubated Sedate for ventilator synchrony - on Propofol/Versed/Fentanyl. Check CVP. Get lactic acid + pancultures Continue antibiotics. F/u cultures. IV steroids Start pressors for hemodynamic support Levophed 4 mcg/min Titrate to keep mean arterial pressure greater than 65 mmHg. Dopamine 5 mcg/min for bradycardia Titrate to keep SBP above 90 mmHg. Obtain consent for bronchoscopy w/ BAL to evaluate for active hemorrhage. Monitor renal function Monitor electrolytes. Supplement as necessary. Monitor ins and outs. GI prophylaxis. DVT prophylaxis. Prognosis: Poor given patient's multiple co-morbidities. Condition: Critical Rest of plan per hospitalist and other consultants. A total of 35 minutes of critical care time was spent reviewing the patient record, examining the patient, making a diagnostic and therapeutic plan, discussing this plan with the medical personnel, following up on diagnostic studies and following the patient for clinical stability excluding any and all procedures. At least 50% of this time was spent in direct, [id number] contact. Thank you. Dr. Mcclain, for allowing me to participate in this patient's care. Further recommendations will depend on the patient's clinical course. Please do not hesitate to contact me if you have any questions or concerns. This medical document was created using an electronic medical record system with [employer] computerized dictation system. Although these documentations are being carefully reviewed, there may still be some phonetic and typographical changes. The errors are purely typographical, due to imperfection on the software program, and do not reflect any compromise in the patient's medical care. Plan discussed with: Other (EVELYN Tavarez/Dr. Mcclain, Father) JOSE FROST MD Aug 06, 2024 19:56
[2024-08-06] MEDS: CEFEPIME 2GM/50ML NS 50 ML IV SCH (20:39)
[2024-08-07] VITALS (99 sets, daily range): BP systolic 84–149; BP diastolic 45–83; PULSE 37–67; RESP 12–26; TEMP 97.2–99.7; O2SAT 92–100
[2024-08-07 04:02] LABS: Basophils # (auto) 0 10 ^3/uL (0-0.2); Eosinophils # (auto) 0 10 ^3/uL (0-0.8); Hemoglobin 12.5 g/dL (13.5-17.5); Lymphocytes # (auto) 1.1 10 ^3/uL (0.4-5.4); Lymphocytes % (auto) 5.5 % (10.0-50.0); Mean Corpuscular Hgb Conc. 33.8 g/dL (32.0-36.0); Mean Corpuscular Volume 94.7 fL (80.0-100.0); Monocytes % (auto) 5.1 % (0.0-12.0); Neutrophils # (auto) 17.2 10 ^3/uL (1.6-8.6); Neutrophils % (auto) 89.4 % (37.0-80.0); Nucleated Red Blood Cells % 0.1 %; Platelet Count (auto) 292 10^3/uL (140-450); Red Cell Distribution Width 13.1 % (11.8-14.3); White Blood Cell 19.3 10^3/uL (4.4-10.8)
[2024-08-07 04:19] LABS: Alanine Aminotransferase 12 U/L (7-40); Albumin 3.8 g/dL (3.2-4.8); Alkaline Phosphatase 60 U/L (46-116); Anion Gap 4 (5-15); BUN/Creatinine Ratio 15.3 (10.0-20.0); Blood Urea Nitrogen 13 mg/dL (9-23); Calcium 8.8 mg/dL (8.7-10.4); Carbon Dioxide 29 mmol/L (20-31); Chloride 106 mmol/L (98-107); Potassium 4.9 mmol/L (3.5-5.1); Sodium 139 mmol/L (136-145); Total Protein 5.8 g/dL (5.7-8.2)
[2024-08-07 04:20] LABS: Bilirubin, Total 0.4 mg/dL (0.2-1.0)
[2024-08-07 04:29] LABS: Glucose 127 mg/dL (74-106)
[2024-08-07 04:30] LABS: Aspartate Aminotransferase 12 U/L (13-40)
--- NOTE | 2024-08-07 05:42 | DVH ---
CHEST RADIOGRAPH Indication: fu Technique: Single frontal view of the chest was obtained Comparison: XY CHEST XRAY 1 VIEW on DOS: 08/06/24, XY CHEST XRAY 1 VIEW on DOS: 08/05/24, XY CHEST XRAY 1 VIEW on DOS: 08/05/24 IMPRESSION: Heart is prominent size. Support lines and tubes appear unchanged. Patchy airspace opacities in the left lung and right lower lung appear similar. No sizable effusion or pneumothorax.
--- NOTE | 2024-08-07 10:15 | DVHPN2 ---
Subjective Intubated. Follows simple command. Reviewed: Care Plan, H&P, Labs, Medications, Previous Orders, Radiology, Other Changes from previous H/P or p: No Changes Objective Vitals Vital Signs Date Time Temp Pulse Resp B/P (MAP) Pulse Ox O2 Delivery O2 Flow Rate FiO2 08/07/24 08:20 44 20 104/54 (71) 98 30 08/07/24 08:00 Mechanical Ventilator+ 08/07/24 07:00 99.5 211.1 08/05/24 07:30 5 Intake/Output Intake and Output 08/07/24 06:59 Intake Total 5013.031 ml Output Total 3100 ml Balance 1913.031 ml Intake Oral 40 ml IV Total 4973.031 ml Output Urine Total 3100 ml General Appearance: Other (Intubated. Follows simple commands. Opens eyes. Moves bilateral lower extremities. Unable to move bilateral upper extremities) HEENT: Atraumatic, Other (Pupils small and symmetric) Lungs: Other (Few crackles bilateral lungs with good air entry) Cardiovascular: Other (More bradycardic down in the low 40s) Abdomen: Soft Extremities: No edema Neuro: Other (Patient able to move bilateral lower extremities. Obesity eyes. But seems not able to move bilateral upper extremities) Medications Current Medications Medications Dose Ordered Sig/Rosina Route Start Time Stop Time Status Last Admin Dose Admin Sodium Chloride 1,000 ml @ 60 mls/hr [id number] IV 08/04/24 22:45 Cancel Lorazepam 1 mg Q5MINP PRN IV 08/04/24 22:45 Diagnostic Test (Pha) 1 strip IQ4HR 08/05/24 02:45 08/07/24 04:27 1 STRIP Levetiracetam 100 ml @ 400 mls/hr BID IV 08/05/24 06:00 08/06/24 20:39 400 MLS/HR Albuterol 2.5 mg Q8HPRN PRN NEB 08/05/24 06:15 Ipratropium [place] 0.5 mg Q8HPRN PRN NEB 08/05/24 06:15 Acetaminophen 650 mg Q6HP PRN PO 08/05/24 08:30 Hold Vancomycin HCl 0 ml @ 0 mls/hr UD IV 08/05/24 09:15 Ondansetron HCl 4 mg Q4HPRN PRN IV 08/05/24 09:45 Acetaminophen 650 mg Q6HP PRN MS 08/05/24 11:15 08/05/24 11:25 650 MG Pantoprazole Sodium 40 mg DAILY IV 08/06/24 10:00 08/06/24 07:42 40 MG Enoxaparin Sodium 40 mg DAILY SC 08/06/24 10:00 08/06/24 07:42 40 MG Midazolam HCl 50 ml @ 1 mls/hr Q24H IV 08/05/24 12:00 08/07/24 01:30 14 MLS/HR Fentanyl Citrate 250 ml @ 2.5 mls/hr Q24H IV 08/05/24 12:00 08/06/24 22:50 27.5 MLS/HR Norepinephrine Bitartrate 250 ml @ 3.75 mls/hr Q24H IV 08/05/24 12:00 08/07/24 05:37 3.75 MLS/HR Propofol 100 ml @ 2.55 mls/hr Q24H IV 08/05/24 13:00 08/06/24 17:44 2.55 MLS/HR Methylprednisolone Sodium Succinate 80 mg DAILY IV 08/06/24 10:00 08/06/24 07:43 80 MG Lactulose 30 ml BID PO 08/05/24 22:00 08/07/24 13:00 08/06/24 20:39 30 ML Metronidazole 100 ml @ 100 mls/hr Q8HR IV 08/05/24 22:00 08/07/24 04:27 100 MLS/HR Dextrose/Sodium Chloride 1,000 ml @ 100 mls/hr Q10H IV 08/05/24 21:45 08/07/24 04:45 100 MLS/HR Dopamine HCl/ Dextrose 250 ml @ 3.188 mls/ hr Q24H IV 08/06/24 12:45 08/06/24 22:50 15.938 MLS/HR Azithromycin 250 ml @ 125 mls/hr DAILY IV 08/07/24 10:00 Cefepime HCl 50 ml @ 12.5 mls/hr Q8HR IV 08/06/24 22:00 08/07/24 04:27 12.5 MLS/HR Vancomycin HCl 300 ml @ 200 mls/hr Q16H IV 08/06/24 18:00 08/06/24 18:02 200 MLS/HR Laboratory Results Laboratory Tests 08/07/24 03:10 Chemistry Test 08/07/24 03:10 Albumin 3.8 g/dL (3.2-4.8) Calcium Level 8.8 mg/dL (8.7-10.4) Total Protein 5.8 g/dL (5.7-8.2) LFT Test 08/07/24 03:10 Alanine Aminotransferase (ALT) 12 U/L (7-40) Alkaline Phosphatase 60 U/L (46-116) Aspartate Amino Transferase (AST) 12 U/L (13-40) L Total Bilirubin 0.4 mg/dL (0.2-1.0) Urinalysis Test 08/04/24 00:27 Urine Color Light-yellow (Yellow) Urine Clarity Clear (Clear) Urine pH 6.0 (5.0-9.0) Urine Specific [place] 1.017 (1.001-1.035) Urine Protein Negative (Negative) Urine Ketones Negative (Negative) Urine Blood Negative /uL (Negative) Urine Nitrite Negative (Negative) Urine Bilirubin Negative (Negative) Urine Urobilinogen Normal mg/dL (Negative) Urine Leukocyte Esterase Negative /uL (Negative) Urine RBC 1 /hpf (0 - 3) Urine Microscopic WBC 3 /HPF (0-3) Urine Squamous Epithelial Cells None seen /hpf (<5) Urine Bacteria None seen /hpf (None Seen) Urine Glucose Normal mg/dL (Normal) Microbiology Microbiology Date/Time Source Procedure Growth Status 08/05/24 17:26 Nose MRSA Screen - Final Complete 08/05/24 12:18 Sputum Gram Stain - Final Resulted 08/05/24 12:18 Sputum Respiratory Culture - Preliminary Resulted 08/05/24 09:49 Blood Blood Culture - Preliminary NO GROWTH AFTER 48 HOURS OF INCUBATION. Resulted Assessment/Plan Assessment/Plan Sinus Bradycardia of unclear etiology Respiratory failure with hypoxemia Pneumonia /left side Encephalopathy Possible alcohol withdrawal Seizures Rhabdomyolysis Status post bronchoscopy and mucus plug removal done today Mild improvement in leukocytosis Seems unable to move bilateral upper extremities Plan: Head CT pending. Magnesium corrected. Monitor electrolytes. Repeat CBC. Repeat x-rays. Monitor saturation. Waiting for final on sputum and blood culture. Further plan per orders. Total critical care time 40 minutes Plan discussed with: Patient, Other (Nursing) My Orders Orders - DAYNA PERKINS MD Procedure Category Date Status Time Azithromycin 500mg/ PHA 08/07/24 In Process 250ml (Zithromax 50 10:00 Chest Portable XY 08/07/24 Resulted 06:00 Abg W/ Co-Ox RT 08/07/24 Logged 06:00 Cefepime 2gm/50ml Ns PHA 08/06/24 In Process (Maxipime 2gm/50ml) 22:00 Apply Barrier Cream MELANIA 08/06/24 In Process 12:[address] 08/07/24 Logged 07:00 Electrocardigram EKG 08/07/24 Logged 09:14 Electrocardigram EKG 08/07/24 Logged 10:14 Date of Service: Aug 07, 2024 Billing Provider: DAYNA PERKINS MD Common Visit Codes: [id number] CARE 30-74 MIN DAYNA PERKINS MD Aug 07, 2024 10:15
--- NOTE | 2024-08-07 11:03 | DVH ---
EXAM: CT HEAD WITHOUT CONTRAST INDICATION: fu aloc TECHNIQUE: CT of the head without intravenous contrast. Coronal and sagittal reformatted images are s ubmitted. Radiation Dose : 1. Head: CT Dose: CTDI volume is 66.25 mGy. Dose-length product is 1305.25 mGy*cm The dose indicators for CT are the volume Computed Tomography (CT) Dose Index (CTDIvol) and the Dose Length Product (DLP), and are measured in units of mGy and mGy-cm, respectively. These indicators are not patient dose, but values generated from the CT scanner acquisition factors. The report includes radiation exposure data for exposures received during this examination. All CT scans at this medical facility are performed using dose modulation techniques as appropriate to a performed exam including the following: Automated exposure control was utilized; adjustment of the MA and/or KV according to patient size; and use of iterative reconstruction technique. COMPARISON: CT HEAD WITHOUT CONTRAST on DOS: 08/04/24 FINDINGS: There is no evidence of acute intracranial hemorrhage, extra-axial collection, mass effect, midline s hift, herniation or hydrocephalus. The ventricles, sulci and cisterns are age appropriate. The browning-white differentiation is intact. The visualized paranasal sinuses and mastoid air cells are clear. No depressed calvarial fracture. The surrounding soft tissues are unremarkable. IMPRESSION: 1. No evidence of acute intracranial abnormality.
--- NOTE | 2024-08-07 11:24 | ECG ---
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
[2024-08-07] MEDS: AZITHROMYCIN 500MG/ 250ML 250 ML IV SCH (11:30)
[2024-08-07 16:30] LABS: Potassium 4.7 mmol/L (3.5-5.1)
[2024-08-07 16:36] LABS: Magnesium 2.2 mg/dL (1.6-2.6)
--- NOTE | 2024-08-07 19:35 | DVHPN2 ---
MARVIN JANE [facility] 08/07/241934: Consult Progress Note Subjective Other Systems: Patient in sinus bradycardia without pauses or AV blocks on cardiac tech. Objective vital signs Vital Sign Date Time Temp Pulse Resp B/P (MAP) Pulse Ox O2 Delivery O2 Flow Rate FiO2 08/07/24 19:21 98/51 08/07/24 19:00 97.5 41 20 97 207.5 08/07/24 18:54 30 08/07/24 18:00 Mechanical Ventilator+ 08/05/24 07:30 5 Total Intake and Output 08/06/24 08/06/24 08/07/24 15:00 23:00 07:00 Intake Total 1794.375 ml 1780.352 ml 1432.004 ml Output Total 1400 ml 1700 ml Balance 1794.375 ml 380.352 ml -267.996 ml medications Current Medications Medications Dose Ordered Sig/Rosina Route Start Time Stop Time Status Last Admin Dose Admin Sodium Chloride 1,000 ml @ 60 mls/hr [id number] IV 08/04/24 22:45 Cancel Lorazepam 1 mg Q5MINP PRN IV 08/04/24 22:45 Levetiracetam 100 ml @ 400 mls/hr BID IV 08/05/24 06:00 08/07/24 10:09 400 MLS/HR Albuterol 2.5 mg Q8HPRN PRN NEB 08/05/24 06:15 Ipratropium [place] 0.5 mg Q8HPRN PRN NEB 08/05/24 06:15 Acetaminophen 650 mg Q6HP PRN PO 08/05/24 08:30 Hold Vancomycin HCl 0 ml @ 0 mls/hr UD IV 08/05/24 09:15 Ondansetron HCl 4 mg Q4HPRN PRN IV 08/05/24 09:45 Acetaminophen 650 mg Q6HP PRN VA 08/05/24 11:15 08/05/24 11:25 650 MG Pantoprazole Sodium 40 mg DAILY IV 08/06/24 10:00 08/07/24 10:09 40 MG Enoxaparin Sodium 40 mg DAILY SC 08/06/24 10:00 08/07/24 10:10 40 MG Midazolam HCl 50 ml @ 1 mls/hr Q24H IV 08/05/24 12:00 08/07/24 19:21 10 MLS/HR Fentanyl Citrate 250 ml @ 2.5 mls/hr Q24H IV 08/05/24 12:00 08/07/24 19:19 25 MLS/HR Norepinephrine Bitartrate 250 ml @ 3.75 mls/hr Q24H IV 08/05/24 12:00 08/07/24 05:37 3.75 MLS/HR Propofol 100 ml @ 2.55 mls/hr Q24H IV 08/05/24 13:00 08/06/24 17:44 2.55 MLS/HR Methylprednisolone Sodium Succinate 80 mg DAILY IV 08/06/24 10:00 08/07/24 10:10 80 MG Metronidazole 100 ml @ 100 mls/hr Q8HR IV 08/05/24 22:00 08/07/24 14:17 100 MLS/HR Dextrose/Sodium Chloride 1,000 ml @ 100 mls/hr Q10H IV 08/05/24 21:45 08/07/24 14:59 100 MLS/HR Dopamine HCl/ Dextrose 250 ml @ 3.188 mls/ hr Q24H IV 08/06/24 12:45 08/06/24 22:50 15.938 MLS/HR Azithromycin 250 ml @ 125 mls/hr DAILY IV 08/07/24 10:00 08/07/24 11:30 125 MLS/HR Cefepime HCl 50 ml @ 12.5 mls/hr Q8HR IV 08/06/24 22:00 08/07/24 14:58 12.5 MLS/HR Vancomycin HCl 300 ml @ 200 mls/hr Q16H IV 08/06/24 18:00 08/07/24 10:11 200 MLS/HR Examination: GENERAL:Abnormal, LUNGS:Abnormal (Chemically sedated), CVS:Normal (Sinus bradycardia without pauses or AV block) laboratory and microbiology Laboratory Tests 08/07/24 16:11 08/07/24 03:10 Test 08/07/24 03:10 Range/Units Serum Glucose 127 H 74-106 mg/dL Problem List/Assessment/Plan Problem List/Assessment/Plan Sinus bradycardia History of hypertension Acute hypoxic respiratory failure Sepsis Seizures Traumatic brain injury Polysubstance abuse Plan/Recommendation (Dr. Lacey): Case discussed with . Transthoracic echocardiogram reveals an EF of 60%. At this time, the patient remains in sinus bradycardia without any evidence of pauses or atrioventricular blocks. No indication at this time for temporary or permanent pacemaker. Patient now off of dopamine drip and propofol. Patient is still sedated with Versed and fentanyl. When patient is aroused, he is able to open eyes and follow commands and heart rate goes up to 60s. Pending possible extubation within the next 24 hours. There is no further inpatient cardiac workup indicated at this time. Please reconsult if needed. Thank you for allowing us to care for this patient. Please call with any questions or concerns. Critical care time spent: 44 minutes.This medical document was created using an electronic medical record system with voice recognition software and computerized dictation system. Although this document has been carefully reviewed, there might still be some phonetic and typographical errors. Occasional wrong-word or ``sound-alike substitutions may have occurred due to the inherent limitations of voice recognition software. These areas are purely typographical due to imperfections of the software programs and do not reflect any compromise in the patient's medical care. Please read the chart carefully and recognize, using context, where these substitutions have occurred. Plan discussed with: Other (Bedside RN) Dietary Evaluation Review Comments: 1) If patient remains NPO for more than 7 days, consider TPN to meet at least 75% of estimated needs 2) If GI route is preferred, consider Glucerna 1.2 @ 60 mL/hr goal rate as tolerated. Flush with 200 mL free H2O Q6. Goal rate will provide 1728 kcals, 86g Pro and 1959 mL free H2O (including flushes) daily. TF regimen will meet ~85% estimated daily energy needs and 86% estimated daily protein needs. 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
--- NOTE | 2024-08-07 23:30 | DVHPN2 ---
Progress Note - Dictate Date Seen: Aug 07, 2024 Medical Necessity Reason Pt with a Central, PICC or Fol: Yes The following are medically ne: Central Line, Lopez Catheter Subjective Patient seen and examined at bedside. Sedated, intubated on mechanical ventilator. Overnight events reviewed. vital signs Vital Sign Date Time Temp Pulse Resp B/P (MAP) Pulse Ox O2 Delivery O2 Flow Rate FiO2 08/07/24 21:54 45 20 111/60 (77) 96 30 08/07/24 19:00 97.5 207.5 08/07/24 18:00 Mechanical Ventilator+ 08/05/24 07:30 5 Total Intake and Output 08/06/24 08/06/24 08/07/24 15:00 23:00 07:00 Intake Total 1794.375 ml 1780.352 ml 1432.004 ml Output Total 1400 ml 1700 ml Balance 1794.375 ml 380.352 ml -267.996 ml medications Current Medications Medications Dose Ordered Sig/Rosina Route Start Time Stop Time Status Last Admin Dose Admin Sodium Chloride 1,000 ml @ 60 mls/hr [id number] IV 08/04/24 22:45 Cancel Lorazepam 1 mg Q5MINP PRN IV 08/04/24 22:45 Levetiracetam 100 ml @ 400 mls/hr BID IV 08/05/24 06:00 08/07/24 20:37 400 MLS/HR Albuterol 2.5 mg Q8HPRN PRN NEB 08/05/24 06:15 Ipratropium [place] 0.5 mg Q8HPRN PRN NEB 08/05/24 06:15 Acetaminophen 650 mg Q6HP PRN PO 08/05/24 08:30 Hold Vancomycin HCl 0 ml @ 0 mls/hr UD IV 08/05/24 09:15 Ondansetron HCl 4 mg Q4HPRN PRN IV 08/05/24 09:45 Acetaminophen 650 mg Q6HP PRN MD 08/05/24 11:15 08/05/24 11:25 650 MG Pantoprazole Sodium 40 mg DAILY IV 08/06/24 10:00 08/07/24 10:09 40 MG Enoxaparin Sodium 40 mg DAILY SC 08/06/24 10:00 08/07/24 10:10 40 MG Midazolam HCl 50 ml @ 1 mls/hr Q24H IV 08/05/24 12:00 08/07/24 19:21 10 MLS/HR Fentanyl Citrate 250 ml @ 2.5 mls/hr Q24H IV 08/05/24 12:00 08/07/24 19:19 25 MLS/HR Norepinephrine Bitartrate 250 ml @ 3.75 mls/hr Q24H IV 08/05/24 12:00 08/07/24 05:37 3.75 MLS/HR Propofol 100 ml @ 2.55 mls/hr Q24H IV 08/05/24 13:00 08/06/24 17:44 2.55 MLS/HR Methylprednisolone Sodium Succinate 80 mg DAILY IV 08/06/24 10:00 08/07/24 10:10 80 MG Metronidazole 100 ml @ 100 mls/hr Q8HR IV 08/05/24 22:00 08/07/24 20:36 100 MLS/HR Dextrose/Sodium Chloride 1,000 ml @ 100 mls/hr Q10H IV 08/05/24 21:45 08/07/24 14:59 100 MLS/HR Dopamine HCl/ Dextrose 250 ml @ 3.188 mls/ hr Q24H IV 08/06/24 12:45 08/06/24 22:50 15.938 MLS/HR Azithromycin 250 ml @ 125 mls/hr DAILY IV 08/07/24 10:00 08/07/24 11:30 125 MLS/HR Cefepime HCl 50 ml @ 12.5 mls/hr Q8HR IV 08/06/24 22:00 08/07/24 20:37 12.5 MLS/HR Vancomycin HCl 300 ml @ 200 mls/hr Q16H IV 08/06/24 18:00 08/07/24 10:11 200 MLS/HR objective Gen.: Patient lying in bed in medical ICU. Sedated, intubated on mechanical ventilator. Head: Normocephalic, atraumatic. Eyes: PERRLA. Ears: Normal external anatomy. Throat: Endotracheal tube and orogastric tube in place. Neck: Supple, trachea midline. Chest: Transmitted breath sounds bilaterally. Decreased air entry bilaterally. No wheezing. Bibasilar crackles. Cardiovascular: Positive S1, positive S2. Regular rate and rhythm. Abdomen: Positive bowel sounds in all 4 quadrants. Soft, nontender, nondistended. : Lopez in place. Normal external genitalia. Rectal: Deferred. Skin: Warm, dry. Intact. Extremities: 2+ radial pulses bilaterally. No lower extremity edema. Neuro: Sedated. laboratory and microbiology Laboratory Tests 08/07/24 16:11 08/07/24 03:10 Test 08/07/24 03:10 Range/Units Serum Glucose 127 H 74-106 mg/dL Assessment/Plan Impression: Acute hypoxic respiratory failure On mechanical ventilator Status epilepticus Marijuana use Shock, septic vs. cardiogenic. Bradycardia Nicotine dependence Events: Remains on vent support On AC mode;RR 20, VT 500, PEEP 5, FiO2 30% Sedated on Versed, Fentanyl Off Levophed, hemodynamically stable Off dopamine Monitor BP IV fluids with D5-half normal saline. Cardiology recs appreciated. Follow up Neurology recommendations If Neurology clears, OK for CPAP. Head CT reveals no acute intracranial abnormality. CXR reviewed; patchy airspace opacities in the left lung and right lower lung similar to prior. No effusion or pneumothorax. Devices in place. S/p bronchoscopy with RLL BAL on 08/06/24 - cleared mucous plugging from R6-R10 Follow-up RLL BAL results Labs and imaging reviewed. Rest of plan as noted below. Plan: s/p intubation on mechanical ventilator. On AC mode;RR 20, VT 500, PEEP 5, FiO2 30% Titrate FIO2 to keep O2 saturation above 90%. VAP bundle. Daily ABG and CXR while intubated Sedate for ventilator synchrony Pancultures Continue antibiotics. F/u cultures. Blood cultures show no growth after 24 hours IV steroids Follow up lactic acid Pressors if necessary for hemodynamic support Titrate to keep MAP above 65 mmHg/SBP above 90 mmHg. Monitor renal function Monitor electrolytes. Supplement as necessary. Monitor ins and outs. GI prophylaxis. DVT prophylaxis. Prognosis: Poor given patient's multiple co-morbidities. Condition: Critical Rest of plan per hospitalist and other consultants. A total of 35 minutes of critical care time was spent reviewing the patient record, examining the patient, making a diagnostic and therapeutic plan, discussing this plan with the medical personnel, following up on diagnostic studies and following the patient for clinical stability excluding any and all procedures. At least 50% of this time was spent in direct, [id number] contact. Thank you. Dr. Mcclain, for allowing me to participate in this patient's care. Further recommendations will depend on the patient's clinical course. Please do not hesitate to contact me if you have any questions or concerns. This medical document was created using an electronic medical record system with [employer] dictation system. Although these documentations are being carefully reviewed, there may still be some phonetic and typographical changes. The errors are purely typographical, due to imperfection on the software program, and do not reflect any compromise in the patient's medical care. Dietary Evaluation Review Comments: 1) If patient remains NPO for more than 7 days, consider TPN to meet at least 75% of estimated needs 2) If GI route is preferred, consider Glucerna 1.2 @ 60 mL/hr goal rate as tolerated. Flush with 200 mL free H2O Q6. Goal rate will provide 1728 kcals, 86g Pro and 1959 mL free H2O (including flushes) daily. TF regimen will meet ~85% estimated daily energy needs and 86% estimated daily protein needs. 3) Advance patient diet when medically feasible to regular diet 4) Continue current plan of care Expected Outcomes/Goals: 1) patient to receive nutrition support within 7 days 2) appetite and labs to improve 3) diet to advance 4) f/u in 3 days Plan discussed with: Other (EVELYN Murrieta) Critical Care Time(min): 35 JOSE FROST MD Aug 07, 2024 23:30
[2024-08-08] VITALS (82 sets, daily range): BP systolic 107–153; BP diastolic 52–95; PULSE 35–90; RESP 6–26; TEMP 96.3–98.7; O2SAT 72–100
[2024-08-08 03:49] LABS: Basophils # (auto) 0 10 ^3/uL (0-0.2); Basophils % (auto) 0.1 % (0.0-2.0); Eosinophils # (auto) 0 10 ^3/uL (0-0.8); Hematocrit 37.2 % (41.0-53.0); Hemoglobin 12.9 g/dL (13.5-17.5); Lymphocytes # (auto) 0.9 10 ^3/uL (0.4-5.4); Lymphocytes % (auto) 7.3 % (10.0-50.0); Mean Corpuscular Hemoglobin 32.9 pg (28.0-32.0); Mean Corpuscular Hgb Conc. 34.6 g/dL (32.0-36.0); Mean Corpuscular Volume 95.1 fL (80.0-100.0); Monocytes # (auto) 0.7 10 ^3/uL (0-1.3); Monocytes % (auto) 5.4 % (0.0-12.0); Neutrophils # (auto) 11.3 10 ^3/uL (1.6-8.6); Neutrophils % (auto) 87.2 % (37.0-80.0); Platelet Count (auto) 250 10^3/uL (140-450); Red Blood Cells 3.92 10^6/uL (4.5-5.90); Red Cell Distribution Width 13.2 % (11.8-14.3)
[2024-08-08 04:04] LABS: Alanine Aminotransferase 12 U/L (7-40); Albumin 3.7 g/dL (3.2-4.8); Alkaline Phosphatase 51 U/L (46-116); Anion Gap 8 (5-15); BUN/Creatinine Ratio 18.2 (10.0-20.0); Blood Urea Nitrogen 14 mg/dL (9-23); Calcium 8.9 mg/dL (8.7-10.4); Carbon Dioxide 26 mmol/L (20-31); Chloride 106 mmol/L (98-107); Potassium 4.5 mmol/L (3.5-5.1); Sodium 140 mmol/L (136-145)
[2024-08-08 04:05] LABS: Aspartate Aminotransferase 11 U/L (13-40); Bilirubin, Total 0.5 mg/dL (0.2-1.0); Glucose 114 mg/dL (74-106); Total Protein 5.6 g/dL (5.7-8.2)
[2024-08-08] MEDS: VANCOMYCIN 1.5GM/300ML 300 ML IV SCH ×2 (04:24→17:51)
--- NOTE | 2024-08-08 04:37 | DVH ---
CHEST RADIOGRAPH Indication: fu Technique: Single frontal view of the chest was obtained Comparison: XY CHEST PORTABLE on DOS: 08/07/24 FINDINGS: Lines and Tubes: Right central venous catheter terminates in the superior vena cava. The endotrachea l tube terminates 2.9 cm above the rayne. The enteric tube courses below the left hemidiaphragm and the tip extends outside the field of view. Lungs: Improved aeration in the right lower, right upper and left lower lung. Pleura: No effusion. No pneumothorax. Cardiomediastinal contours: Unremarkable Bones: No acute osseous abnormality. IMPRESSION: 1. Stable position of the support lines and tubes. Overall improved aeration in the bilateral lung f ields.
[2024-08-08 06:58] LABS: Base Excess 2.9 mmol/L (-2.0-3.0)
--- NOTE | 2024-08-08 12:08 | DVHPN2 ---
Progress Note Date Seen: Aug 08, 2024 Medical Necessity Reason Pt with a Central, PICC or Fol: Yes The following are medically ne: Central Line, Khan Catheter Reason for khan catheter: Strict I&O Subjective Patient reports: No new complaints Review of Systems: HEENT:Normal, CVS:Normal, RESPIRATORY:Normal, GI:Normal, :Normal, MSK:Normal, NEURO:Normal Objective vital signs Vital Sign Date Time Temp Pulse Resp B/P (MAP) Pulse Ox O2 Delivery O2 Flow Rate FiO2 08/08/24 11:49 42 20 139/77 (97) 98 30 08/08/24 11:30 97.5 207.5 08/08/24 10:00 Mechanical Ventilator+ Total Intake and Output 08/07/24 08/07/24 08/08/24 15:00 23:00 07:00 Intake Total 1475.752 ml 1471.815 ml 1676.066 ml Output Total 2500 ml 2650 ml Balance 1475.752 ml -1028.185 ml -973.934 ml medications Current Medications Medications Dose Ordered Sig/Rosina Route Start Time Stop Time Status Last Admin Dose Admin Sodium Chloride 1,000 ml @ 60 mls/hr [id number] IV 08/04/24 22:45 Cancel Lorazepam 1 mg Q5MINP PRN IV 08/04/24 22:45 Levetiracetam 100 ml @ 400 mls/hr BID IV 08/05/24 06:00 08/08/24 09:38 400 MLS/HR Albuterol 2.5 mg Q8HPRN PRN NEB 08/05/24 06:15 Ipratropium [place] 0.5 mg Q8HPRN PRN NEB 08/05/24 06:15 Acetaminophen 650 mg Q6HP PRN PO 08/05/24 08:30 Hold Vancomycin HCl 0 ml @ 0 mls/hr UD IV 08/05/24 09:15 Ondansetron HCl 4 mg Q4HPRN PRN IV 08/05/24 09:45 Acetaminophen 650 mg Q6HP PRN SD 08/05/24 11:15 08/05/24 11:25 650 MG Pantoprazole Sodium 40 mg DAILY IV 08/06/24 10:00 08/08/24 09:38 40 MG Enoxaparin Sodium 40 mg DAILY SC 08/06/24 10:00 08/08/24 09:38 40 MG Midazolam HCl 50 ml @ 1 mls/hr Q24H IV 08/05/24 12:00 08/08/24 10:43 15 MLS/HR Fentanyl Citrate 250 ml @ 2.5 mls/hr Q24H IV 08/05/24 12:00 08/08/24 09:44 32.5 MLS/HR Propofol 100 ml @ 2.55 mls/hr Q24H IV 08/05/24 13:00 08/06/24 17:44 2.55 MLS/HR Metronidazole 100 ml @ 100 mls/hr Q8HR IV 08/05/24 22:00 08/08/24 05:51 100 MLS/HR Dextrose/Sodium Chloride 1,000 ml @ 100 mls/hr Q10H IV 08/05/24 21:45 08/08/24 02:01 100 MLS/HR Dopamine HCl/ Dextrose 250 ml @ 3.188 mls/ hr Q24H IV 08/06/24 12:45 08/08/24 00:04 9.563 MLS/HR Cefepime HCl 50 ml @ 12.5 mls/hr Q8HR IV 08/06/24 22:00 08/08/24 05:51 12.5 MLS/HR Vancomycin HCl 300 ml @ 200 mls/hr Q16H IV 08/08/24 18:00 Examination: GENERAL:Normal, HEENT:Normal, NECK:Normal, LUNGS:Normal, LUNGS:Abnormal (intubated), CVS:Normal, ABDOMEN:Normal, MSK:Normal, SKIN:Normal, NEURO:Normal, :Normal laboratory and microbiology Laboratory Tests 08/08/24 03:00 Test 08/08/24 03:00 Range/Units Serum Glucose 114 H 74-106 mg/dL Microbiology Date/Time Source Procedure Growth Status 08/06/24 13:42 Blood Blood Culture - Preliminary NO GROWTH AFTER 24 HOURS OF INCUBATION. Resulted 08/06/24 12:58 Voided Urine Urine Culture - Final Complete 08/06/24 12:31 Sputum Gram Stain - Final Resulted 08/06/24 12:31 Sputum Respiratory Culture - Preliminary Resulted 08/05/24 17:26 Nose MRSA Screen - Final Complete Problem List/Assessment/Plan Problem List/Assessment/Plan #1 acute resp failure: cont acv, cpap trial #2 new onset seizure: on keppra #3 septic shock with ? aspiration pneumonia: iv antibiotics #4 h/o traumatic brain injury #5 encephalopathy: monitor #7 h/o drug abuse dw girlfriend plan of care Plan discussed with: Other (rn) My Orders My Orders Orders - ROXY RAZO MD Procedure Category Date Status Time Cpap/Sed Vacation Med ORDERS 08/08/24 Transmitted Weaning 11:56 Basic Metabolic Panel LAB 08/09/24 Verified 06:00 Complete Blood Count LAB 08/09/24 Verified 06:00 Chest Portable XY 08/09/24 Logged 06:00 Precedex Drip Rass 0 PHA 08/08/24 Transmitted 12:00 Dietary Evaluation Review Comments: 1) If patient remains NPO for more than 7 days, consider TPN to meet at least 75% of estimated needs 2) If GI route is preferred, consider Glucerna 1.2 @ 60 mL/hr goal rate as tolerated. Flush with 200 mL free H2O Q6. Goal rate will provide 1728 kcals, 86g Pro and 1959 mL free H2O (including flushes) daily. TF regimen will meet ~85% estimated daily energy needs and 86% estimated daily protein needs. 3) Advance patient diet when medically feasible to regular diet 4) Continue current plan of care Expected Outcomes/Goals: 1) patient to receive nutrition support within 7 days 2) appetite and labs to improve 3) diet to advance 4) f/u in 3 days Critical Care Time (mins): 81 (critical care time including cpap trial was 81 mins) Date of Service: Aug 08, 2024 Billing Provider: ROXY RAZO MD Common Visit Codes: 21386-[id number] CARE 30-74 MIN, 83828-[id number] CARE-EACH +30MIN ROXY RAZO MD Aug 08, 2024 12:08
--- NOTE | 2024-08-08 14:39 | ECG ---
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
--- NOTE | 2024-08-08 22:06 | DVHINCON2 ---
Date of service: Aug 08, [address] Ev Cardona Reason for Consultation ALOC from breakthrough seizure, or meningitis History of Present Illness Mr. Pandya is a 38 years old right-handed gentleman with a history of hypertension, seizure disorder, the patient was brought to the [facility] on 08/04/2024 with altered mental status possible seizure activity, and family started CPR on him. When the EMS came over, the patient was noticed to be nonresponsive, with pulse ox 75 on room air. The patient was intubated on 08/04/2024, admitted to the ICU, with appropriate treatment, the patient has recovered, and he was extubated early today on 08/08/2024. At this time, he is awake, oriented x3, he provided the following history He was remember at home, but the next memory was waking up in the ICU, with a healing sore in the right side of his tongue. He relates that he has had seizure with the 1st attack a few months of time, the 2nd attack was on 07/17/2024,, and this is the 3rd seizure in his life. He was on Keppra, one tablet b.i.d. but he does not remember how many mg each tablet. He claims good compliance In the hospital, he has leukocytosis, but no fever. A questions of possible meningitis/intracranial infection raised Blood culture are negative so far She reports a history of recurrent includes head injury with the last two in 2010, 2011 both with loss of consciousness for hours Urinalysis, 08/04/2024: Unremarkable UDS, 08/04/2024: Fentanyl, benzo, cannabinoids Plasma alcohol, 08/04/2024: < 3 Keppra, 08/05/2019 5:20.6 WBC/HB/PLT/MCV, 08/08/2024: 13/12.9/250/95.1 CMP, 08/08/2024: Unremarkable Chest x-ray, 08/05/2024: Worsening multifocal left lung consolidative opacities suggestive of worsening pneumonia or edema Chest x-ray, 08/05/2024: Endotracheal tube in appropriate position. Multifocal left lung consolidative opacities Chest x-ray, 08/08/2024: Stable position of the support lines and tubes. Overall improved aeration in the bilateral lung doe. CT head, 08/04/2024: 1. No acute intracranial hemorrhage 2. No CT findings of territorial ischemia CT head, 08/07/2024: No evidence of acute intracranial abnormality. Past Medical History Hypertension, seizure Past Surgical History Appendectomy, Knee surgeries Family History: Patient reports no known family medical history. Family History Hypertension, no answer, no depression Social History He was tobacco smoker, he had alcohol problem till four years ago, he was a marijuana user Allergies: Coded Allergies: NO KNOWN ALLERGIES (Unverified , 09/04/19) Home Meds Active Scripts Hydrocodone-Acetaminophen (Hydrocodone Bitartrate/AC 10-325 mg) 1 Tab Tab, 1 TAB PO Q6HP PRN, #10 TAB Prov:JOLIE PATEL MD 07/17/24 Ibuprofen Micronized (Ibuprofen) 800 Mg Tab, 800 MG PO Q8HP PRN, #30 TAB prn pain, take with food Prov:JOLIE PATEL MD 07/17/24 Meclizine HCl (Meclizine 25) 25 Mg Tab, 25 MG PO TID PRN, #30 TAB prn dizziness Prov:JOLIE PATEL MD 07/17/24 Reported Medications Lisinopril (Lisinopril) 5 Mg Tab, 5 MG PO DAILY for 30 Days, MG 09/05/19 Current Medications Current Medications Medications (Trade) Dose Ordered Sig/Rosina Route PRN Reason Start Time Stop Time Status Last Admin Vancomycin HCl 300 ml @ 200 mls/hr Q16H IV 08/08/24 04:30 08/08/24 09:25 DC 08/08/24 04:24 Vancomycin HCl 300 ml @ 200 mls/hr Q16H IV 08/08/24 18:00 08/08/24 17:51 Dexmedetomidine HCl 400 mcg/ Dextrose 100 ml @ 4.05 mls/hr Q24H IV 08/08/24 12:00 Review of Systems As above, the other systems are negative Vital Signs Vital Signs Date Time Temp Pulse Resp B/P (MAP) Pulse Ox O2 Delivery O2 Flow Rate FiO2 08/08/24 20:00 43 20 98 Mechanical Ventilator+ 30 30 08/08/24 20:00 0 08/08/24 18:00 131/73 (92) 08/08/24 16:00 97.0 97.0 Physical Exam GENERAL EXAM: General: the patient is well developed and nourished. No acute distress. HEENT: Normocephalic, neck is supple, no carotid bruits. No mass. A HEALING TONGUE LACERATION RESPIRATORY: Normal respiratory effort with symmetrical lung expansion. Lungs clear to auscultation. CARDIOVASCULAR: Regular rate and rhythm with no murmurs. S1, S2. ABDOMEN: Soft, nontender, normal bowel sound NEUROLOGICAL: MENTAL STATUS: Awake and alert. Oriented to person, place, time SPEECH, LANGUAGE, HIGHER CORTICAL FUNCTION: no aphasia or dysathria. CRANIAL NERVES: #2: Intact visual doe to confrontation. The optic discs were sharp. #3,4,6: Pupils are equal, round and reactive. EOMs full and conjugate. No nystagmus. #5: Facial sensation intact in all three divisions bilaterally. Mandibular strength intact. #7: Facial muscles symmetrical and strength intact. #8: Hearing grossly normal to voice. #9,10: Uvula and soft palate rise in the midline. Swallow and voice are normal. #11: Trapezius and sternomastoid strength intact bilaterally. #12: Tongue midline. No fasciculations or atrophy. SENSATION: Sensation to touch and pinprick is normal. MOTOR: Normal tone in the upper and lower extremity. Normal muscle bulk. No fasciculations. No abnormal movements or posturing. Muscle strength of the major groups in the upper extremities is 5/5. Muscle strength of the major groups in the lower extremities is 5/5. REFLEXES: Deep tendon reflexes are symmetrical. No pathological reflexes. CEREBELLAR/COORDINATION: Finger to nose is normal bilaterally. GAIT/STATION: deferred. Labs/Diagnostic Data Labs Test 08/08/24 05:49 08/08/24 03:00 08/07/24 16:11 08/07/24 07:59 Range/Units Blood Gas Specimen Type Arterial Blood Gas Sample Site Right radial Blood Gas Patient Temperature 37.0 Arterial Blood Date Drawn [id number] Arterial Blood pH 7.449 7.350-7.450 Arterial Blood Partial Pressure CO2 39.9 35.0-48.0 mmHg Arterial Blood Partial Pressure O2 93.2 83.0-108.0 mmHg Arterial Blood HCO3 27.0 21.0-28.0 mmol/L Arterial Blood Oxygen Saturation 97.3 94.0-98.0 % Arterial Blood Base Excess 2.9 -2.0-3.0 mmol/L Arterial Blood Oxyhemoglobin 96.8 94.0-98.0 % Arterial Blood Carboxyhemoglobin 0.3 L 0.5-1.5 % Arterial Blood Methemoglobin 0.2 0.0-1.5 % Scar Test Modified Blood Gas Total Hemoglobin 13.70 13.5-17.5 g/dL Blood Gas Set Respiration Rate 20.0 Blood Gas Modality Vent - ac FiO2 % 30.0 Blood Gas Tidal Volume 500.0 Blood Gas PEEP or CPAP 5.0 White Blood Count 13.0 #H 4.4-10.8 10^3/uL Red Blood Count 3.92 L 4.5-5.90 10^6/uL Hemoglobin 12.9 L 13.5-17.5 g/dL Hematocrit 37.2 L 41.0-53.0 % Mean Corpuscular Volume 95.1 80.0-100.0 fL Mean Corpuscular Hemoglobin 32.9 H 28.0-32.0 pg Mean Corpuscular Hemoglobin Concent 34.6 32.0-36.0 g/dL Red Cell Distribution Width 13.2 11.8-14.3 % Platelet Count 250 140-450 10^3/uL Mean Platelet Volume 8.0 6.9-10.8 fL Neutrophils (%) (Auto) 87.2 H 37.0-80.0 % Lymphocytes (%) (Auto) 7.3 L 10.0-50.0 % Monocytes (%) (Auto) 5.4 0.0-12.0 % Eosinophils (%) (Auto) 0.0 0.0-7.0 % Basophils (%) (Auto) 0.1 0.0-2.0 % Neutrophils # (Auto) 11.3 H 1.6-8.6 10 ^3/uL Lymphocytes # (Auto) 0.9 0.4-5.4 10 ^3/uL Monocytes # (Auto) 0.7 0-1.3 10 ^3/uL Eosinophils # (Auto) 0 0-0.8 10 ^3/uL Basophils # (Auto) 0 0-0.2 10 ^3/uL Nucleated Red Blood Cells 0.0 % Sodium Level 140 136-145 mmol/L Potassium Level 4.5 3.5-5.1 mmol/L Chloride Level 106 98-107 mmol/L Carbon Dioxide Level 26 20-31 mmol/L Anion Gap 8 5-15 Blood Urea Nitrogen 14 9-23 mg/dL Creatinine 0.77 0.700-1.30 mg/dL Glomerular Filtration Rate Calc 116 >90 mL/min BUN/Creatinine Ratio 18.2 10.0-20.0 Serum Glucose 114 H 74-106 mg/dL Calcium Level 8.9 8.7-10.4 mg/dL Total Bilirubin 0.5 0.2-1.0 mg/dL Aspartate Amino Transferase (AST) 11 L 13-40 U/L Alanine Aminotransferase (ALT) 12 7-40 U/L Alkaline Phosphatase 51 46-116 U/L Total Protein 5.6 L 5.7-8.2 g/dL Albumin 3.7 3.2-4.8 g/dL Magnesium Level 2.2 1.6-2.6 mg/dL POC Glucose 140 H 70-106 mg/dl Test 08/06/24 14:34 08/06/24 13:45 08/05/24 15:39 08/05/24 11:22 Range/Units Vancomycin Level Trough 7.4 5-10 ug/mL Lactic Acid Level 0.9 0.4-2.0 mmol/L Prothrombin Time 13.0 H 9.3-11.8 sec Prothrombin Time INR 1.25 H 0.9-1.15 Activated Partial Thromboplast Time 33.1 24.5-34.5 SEC Blood Gas EPAP 5 Blood Gas IPAP 10 Test 08/05/24 09:49 08/05/24 09:15 08/05/24 08:10 08/04/24 22:41 Range/Units Ammonia 53 H 11-32 umol/L Blood Gas Liter Flow 15.00 Erythrocyte Sedimentation Rate 4 0-20 mm/hr Hemoglobin A1c 4.6 <5.7 % A1C Creatine Kinase 764 H 46-171 U/L C-Reactive Protein High Sensitivity 2.41 H <1.0 mg/dL Thyroid Stimulating Hormone (TSH) 1.51 0.55-4.78 uIU/mL Blood Gas Spontaneous Rate 18 Test 08/04/24 22:05 08/04/24 20:30 08/04/24 00:27 Range/Units Levetiracetam Level 20.6 10.0-40.0 ug/mL Plasma/Serum Blood Alcohol < 3.0 <10 mg/dL Troponin I High Sensitivity 19 </=54 ng/L Prolactin 18.76 H 2.1-17.7 ng/mL Urine Color Light-yellow Yellow Urine Clarity Clear Clear Urine pH 6.0 5.0-9.0 Urine Specific Nicholson 1.017 1.001-1.035 Urine Protein Negative Negative Urine Ketones Negative Negative Urine Blood Negative Negative /uL Urine Nitrite Negative Negative Urine Bilirubin Negative Negative Urine Urobilinogen Normal Negative mg/dL Urine Leukocyte Esterase Negative Negative /uL Urine RBC 1 0 - 3 /hpf Urine Microscopic WBC 3 0-3 /HPF Urine Squamous Epithelial Cells None seen <5 /hpf Urine Bacteria None seen None Seen /hpf Urine Glucose Normal Normal mg/dL Urine Opiates Screen Neg NEGATIVE Urine Fentanyl Screen Pos NEGATIVE Urine Barbiturates Screen Neg NEGATIVE Urine Phencyclidine Screen Neg NEGATIVE Urine Amphetamines Screen Neg NEGATIVE Urine Benzodiazepines Screen Pos NEGATIVE Urine Cocaine Screen Neg NEGATIVE Urine Cannabinoids Screen Pos NEGATIVE Microbiology Date/Time Source Procedure Growth Status 08/06/24 13:42 Blood Blood Culture - Preliminary NO GROWTH AFTER 48 HOURS OF INCUBATION. Resulted 08/06/24 12:58 Voided Urine Urine Culture - Final Complete 08/06/24 12:31 Sputum Gram Stain - Final Resulted 08/06/24 12:31 Sputum Respiratory Culture - Preliminary Resulted 08/05/24 17:26 Nose MRSA Screen - Final Complete Assessment Status epileptics Grand mal seizure Chronic recurrent closed head injury ? Alcohol problem Plan/Recommendation Monitoring Supportive treatment ICU care, to transferred to telemetry EEG MR head Keppra 500 mg b.i.d. Ativan for seizure breakthrough IV antibiotics Up to chair AVOID SLEEP DEPRIVATION AVOID ALCOHOL AVOID STREET DRUGS SKIPPING SEIZURE MEDICATIONS PROGNOSIS POOR THIS MEDICAL DOCUMENT WAS CREATED USING AN ELECTRONIC MEDICAL RECORD SYSTEM WITH Endymed DICTATION SYSTEM. ALTHOUGH THIS DOCUMENT HAS BEEN CAREFULLY REVIEWED, THERE MAY STILL BE SOME PHONETIC AND TYPOGRAPHICAL ERRORS. THESE ARE ARE PURELY TYPOGRAPHICAL DUE TO IMPERFECTIONS OF THE SOFTWARE PROGRAMS, AND DO NOT REFLECT ANY COMPROMISE IN THE PATIENT'S MEDICAL CARE. Plan discussed with: Patient, Other HUANG HOLLINS MD Aug 08, 2024 22:06
[2024-08-08] MEDS ORDERED: LORazepam 2MG/ML-1ML VIAL IV NR (23:00)
[2024-08-08] MEDS ORDERED: LORazepam 2MG/ML-1ML VIAL IV PRN (23:00)
[2024-08-09] VITALS (8 sets, daily range): BP systolic 111–134; BP diastolic 54–77; PULSE 46–64; RESP 17–20; TEMP 97.7–98.6; O2SAT 95–100
[2024-08-09] MEDS: traMADol HCL 50 MG TAB PO ONE (01:51)
--- NOTE | 2024-08-09 05:12 | DVH ---
EXAM: XR Chest, 1 View CLINICAL INDICATION: resp failure TECHNIQUE: Frontal view of the chest. COMPARISON: XY CHEST PORTABLE on DOS: 08/08/24, XY CHEST PORTABLE on DOS: 08/07/24, XY CHEST XRAY 1 EW on DOS: 08/06/24, XY CHEST XRAY 1 VIEW on DOS: 08/05/24, XY CHEST XRAY 1 VIEW on DOS: 08/05/24 FINDINGS: LUNGS AND PLEURAL SPACES: Moderate congestive heart failure. No consolidation. No pneumothorax. HEART: Unremarkable. No cardiomegaly. MEDIASTINUM: Unremarkable. Normal mediastinal contour. BONES/JOINTS: Unremarkable. No acute fracture. TUBES, LINES AND DEVICES: The endotracheal tube (ETT) is in satisfactory position. Enteric tube ti p in the stomach. Removal right IJ venous catheter. OTHER FINDINGS: . IMPRESSION: Moderate congestive heart failure.
[2024-08-09 07:20] LABS: Urine Bacteria None Seen /hpf (None Seen)
[2024-08-09 08:08] LABS: Urine Blood Negative /uL (Negative); Urine Clarity Clear (Clear); Urine Color Light-Yellow (Yellow); Urine Protein, UAD Negative (Negative); Urine Specific Gravity 1.015 (1.001-1.035); Urine Squamous Epithelial Cell None Seen /hpf (<5); Urine Urobilinogen Normal (Negative); Urine WBC 1 /HPF (0-3)
--- NOTE | 2024-08-09 08:40 | DVH ---
MRI BRAIN HEAD WO CONTRAST INDICATION: sz EXAM DATE: 08/09/2024 08:00 AM COMPARISON: 08/07/24 PROCEDURE: Using a 1.5 Ivonne scanner, multisequence multiplanar imaging of the brain was obtained. FINDINGS: Subtle T2 hyperintensity in the bilateral globus pallidus. There is low lying cerebellar to nsils. The brain otherwise shows normal morphology and signal characteristics. No abnormal T2 hyperin tensity, diffusion restriction, or susceptibility hypointensity is present. The ventricles are normal in size. The midline structures are intact. The major intracranial flow voids are present. The aerat ed spaces are normal. The orbital contents and extracranial soft tissues appear normal. IMPRESSION: Subtle T2 hyperintensity in the bilateral globus pallidus, a nonspecific finding.
--- NOTE | 2024-08-09 08:46 | DVH ---
CHEST RADIOGRAPH Indication: F/U Technique: Single frontal view of the chest was obtained COMPARISON: XY CHEST PORTABLE on DOS: 08/09/24, XY CHEST PORTABLE on DOS: 08/08/24, XY CHEST PORTABLE o n DOS: 08/07/24, XY CHEST XRAY 1 VIEW on DOS: 08/06/24, XY CHEST XRAY 1 VIEW on DOS: 08/05/24 FINDINGS: Lines and Tubes: Right central venous catheter in satisfactory position overlying superior vena cava. Lungs: Patchy left lower lobe airspace disease. Pleura: No effusion. No pneumothorax. Cardiomediastinal contours: Unremarkable Bones: Unremarkable IMPRESSION: Right central venous catheter in satisfactory position. Patchy left lower lobe airspace disease.
--- NOTE | 2024-08-09 08:54 | DVH ---
CLINICAL INFORMATION: 38 years old, Male; left flank pain. TECHNIQUE: Axial CT images of the abdomen and pelvis were obtained without IV contrast. Coronal and s agittal reformatted images were obtained, reviewed, and stored. Evaluation of the parenchymal organs is limited without IV contrast. Evaluation of the bowel and mesentery is limited without oral contras t. All CT scans at this medical facility are performed using dose modulation techniques as appropriat e to a performed exam including the following: Automated exposure control was utilized; adjustment of the MA and/or KV according to patient size; and use of iterative reconstruction technique. CTDIvol = 6.58 mGy DLP = 400.86 mGy-cm COMPARISON: CT CT AB PEL WO CON-NO ORAL OR IV on DOS: 07/17/24, CT ABD PELVIS WO CONTRAST on DOS: FINDINGS: Lung bases: Ground-glass opacities in the lingula and left lower lobe. Patchy nodular opacities in t he right lower lobe and subtle ground-glass opacity in the right lower lobe, likely infectious or inf lammatory in nature Liver: Grossly unremarkable in its noncontrast enhanced appearance. No abnormal density or focal lesi on identified. Biliary: No calcified gallstones or biliary ductal dilatation. Spleen: Unremarkable. Pancreas: Grossly unremarkable in its noncontrast enhanced appearance. Adrenal glands: Unremarkable. No mass. Kidneys: No hydronephrosis. No renal or ureteral calculi. Aorta/Vascular: No aneurysm or significant calcification. Retroperitoneum: Grossly unremarkable. Limited evaluation due to motion artifact. Bowel/mesentery: Nonspecific mildly distended fluid-filled small bowel loops. No small bowel obstruct ion. Appendix is not visualized. There is liquid stool in the colon. Mild mesenteric edema ascites. Pelvic organs: Grossly unremarkable. Bladder: Unremarkable. No mass. Abdominal wall: Mild diffuse body wall edema / anasarca Bones: No acute fracture or suspicious intraosseous lesion. IMPRESSION: 1. Nonspecific mildly distended fluid-filled small bowel loops and liquid stool in the colon. Findin gs may be seen with ileus or enterocolitis in the appropriate clinical setting no small bowel obstruc tion. 2. Limited examination for the reasons described above. 3. No hydronephrosis and no renal or ureteral calculi visualized. 4. Ground-glass opacities and patchy nodular opacities in the lung bases, likely infectious or inflam matory in nature. Correlate with clinical findings. 5. Additional findings as detailed above
[2024-08-09] MEDS: LISINOPRIL 5 MG TAB PO SCH (09:41)
[2024-08-09 09:47] LABS: Basophils # (auto) 0 10 ^3/uL (0-0.2); Basophils % (auto) 0.1 % (0.0-2.0); Eosinophils # (auto) 0 10 ^3/uL (0-0.8); Hematocrit 43.5 % (41.0-53.0); Hemoglobin 15.1 g/dL (13.5-17.5); Lymphocytes # (auto) 2.4 10 ^3/uL (0.4-5.4); Lymphocytes % (auto) 13.3 % (10.0-50.0); Mean Corpuscular Hemoglobin 32.4 pg (28.0-32.0); Mean Corpuscular Hgb Conc. 34.8 g/dL (32.0-36.0); Mean Corpuscular Volume 93.3 fL (80.0-100.0); Monocytes # (auto) 1.5 10 ^3/uL (0-1.3); Monocytes % (auto) 8.4 % (0.0-12.0); Neutrophils % (auto) 78.2 % (37.0-80.0); Nucleated Red Blood Cells % 0.1 %; Platelet Count (auto) 314 10^3/uL (140-450); Red Blood Cells 4.66 10^6/uL (4.5-5.90); Red Cell Distribution Width 12.8 % (11.8-14.3); White Blood Cell 17.9 10^3/uL (4.4-10.8)
[2024-08-09 09:56] LABS: Chloride 105 mmol/L (98-107); Potassium 3.7 mmol/L (3.5-5.1); Sodium 139 mmol/L (136-145)
[2024-08-09 09:57] LABS: Anion Gap 9 (5-15); Calcium 9.4 mg/dL (8.7-10.4); Carbon Dioxide 25 mmol/L (20-31)
[2024-08-09 10:02] LABS: Blood Urea Nitrogen 19 mg/dL (9-23); Glucose 83 mg/dL (74-106)
--- NOTE | 2024-08-09 10:28 | DVHPN2 ---
Progress Note - Dictate Date Seen: Aug 09, 2024 Medical Necessity Reason Pt with a Central, PICC or Fol: Yes The following are medically ne: Central Line, Khan Catheter Reason for khan catheter: Strict I&O Subjective Mr. Pandya is a 38 years old right-handed gentleman with a history of hypertension, seizure disorder, the patient was brought to the [facility] on 08/04/2024 with altered mental status, possible seizure activity I have seen and examined the patient, I have talked to him, his nurse, and his . He was oriented, no headache relates the 1st seizure was several days earlier, he did not have seizure previously. Four years ago, he passed out with unknown reason, the patient was [facility], but no problem was identified He was no problem with drug or alcohol He lost a lot of weight in the sharp. Time recently, he was working with his [employer] Urinalysis, 08/04/2024: Unremarkable UDS, 08/04/2024: Fentanyl, benzo, cannabinoids Plasma alcohol, 08/04/2024: < 3 Keppra, 08/05/2019 5:20.6 WBC/HB/PLT/MCV, 08/08/2024: 13/12.9/250/95.1, 08/09/2024: 17.9/15.1/314/93.3 PT/INR/PTT, 08/05/2024: 13/1.25/33.1 CMP, 08/08/2024: Unremarkable Chest x-ray, 08/05/2024: Worsening multifocal left lung consolidative opacities suggestive of worsening pneumonia or edema Chest x-ray, 08/05/2024: Endotracheal tube in appropriate position. Multifocal left lung consolidative opacities Chest x-ray, 08/08/2024: Stable position of the support lines and tubes. Overall improved aeration in the bilateral lung doe. CT head, 08/04/2024: 1. No acute intracranial hemorrhage 2. No CT findings of territori MRI head, 08/08/2024: Subtle T2 hyperintensity in the bilateral globus pallidus, a nonspecific finding vital signs Vital Sign Date Time Temp Pulse Resp B/P (MAP) Pulse Ox O2 Delivery O2 Flow Rate FiO2 08/09/24 09:41 128/77 08/09/24 09:00 98.3 54 19 99 98.3 08/09/24 08:00 Room Air* 0 21 Total Intake and Output 08/08/24 08/08/24 08/09/24 15:00 23:00 07:00 Intake Total 1264.378 ml 490 ml 350 ml Output Total 3550 ml 400 ml Balance 1264.378 ml -3060 ml -50 ml medications Current Medications Medications Dose Ordered Sig/Rosina Route Start Time Stop Time Status Last Admin Dose Admin Sodium Chloride 1,000 ml @ 60 mls/hr [id number] IV 08/04/24 22:45 Cancel Lorazepam 1 mg Q5MINP PRN IV 08/04/24 22:45 Levetiracetam 100 ml @ 400 mls/hr BID IV 08/05/24 06:00 08/08/24 21:39 400 MLS/HR Acetaminophen 650 mg Q6HP PRN PO 08/05/24 08:30 Hold Vancomycin HCl 0 ml @ 0 mls/hr UD IV 08/05/24 09:15 Ondansetron HCl 4 mg Q4HPRN PRN IV 08/05/24 09:45 Acetaminophen 650 mg Q6HP PRN [place] 08/05/24 11:15 08/05/24 11:25 650 MG Pantoprazole Sodium 40 mg DAILY IV 08/06/24 10:00 08/09/24 09:39 40 MG Enoxaparin Sodium 40 mg DAILY SC 08/06/24 10:00 08/09/24 09:40 40 MG Metronidazole 100 ml @ 100 mls/hr Q8HR IV 08/05/24 22:00 08/09/24 05:35 100 MLS/HR Cefepime HCl 50 ml @ 12.5 mls/hr Q8HR IV 08/06/24 22:00 08/09/24 05:35 12.5 MLS/HR Vancomycin HCl 300 ml @ 200 mls/hr Q16H IV 08/08/24 18:00 08/08/24 17:51 200 MLS/HR Lorazepam 1 mg ONCE IV 08/08/24 23:00 08/09/24 22:59 Lorazepam 1 mg Q5MINP PRN IV 08/08/24 23:00 Lisinopril 5 mg DAILY PO 08/09/24 10:00 08/09/24 09:41 5 MG objective General: the patient is well developed and nourished. No acute distress. MENTAL STATUS: Awake and alert. Oriented to person, place, time SPEECH, LANGUAGE, HIGHER CORTICAL FUNCTION: no aphasia or dysathria. CRANIAL NERVES: Pupils are equal, round and reactive. EOMs full and conjugate. No nystagmus. Facial sensation intact in all three divisions bilaterally. Mandibular strength intact. Facial muscles symmetrical and strength intact. SENSATION: Sensation to touch and pinprick is normal. MOTOR: Normal tone in the upper and lower extremity. Normal muscle bulk. No fasciculations. No abnormal movements or posturing. Muscle strength of the major groups in the extremities is 5/5. REFLEXES: Deep tendon reflexes are symmetrical. No pathological reflexes. CEREBELLAR/COORDINATION: Finger to nose is normal bilaterally. laboratory and microbiology Laboratory Tests 08/09/24 09:30 Test 08/09/24 09:30 Range/Units Serum Glucose 83 74-106 mg/dL Problem List Status epileptics Grand mal seizure Chronic recurrent closed head injury ? Alcohol problem Meningitis, less likely He does not drive Assessment/Plan Monitoring Supportive treatment Telemetry EEG Keppra 500 mg b.i.d. Ativan for seizure breakthrough IV antibiotics Up to chair Avoid sleep deprivation Avoid alcohol and street drug Avoid skipping seizure medication Common seizure triggers discussed This medical document was created using an electronic medical record system with SHIFT dictation system. Although this document has been carefully reviewed, there may still be some phonetic and typographical errors. These areas are purely typographical due to imperfections of the software programs, and do not reflect any compromise in the patient's medical care. Prognosis poor Dietary Evaluation Review Comments: 1) If patient remains NPO for more than 7 days, consider TPN to meet at least 75% of estimated needs 2) If GI route is preferred, consider Glucerna 1.2 @ 60 mL/hr goal rate as tolerated. Flush with 200 mL free H2O Q6. Goal rate will provide 1728 kcals, 86g Pro and 1959 mL free H2O (including flushes) daily. TF regimen will meet ~85% estimated daily energy needs and 86% estimated daily protein needs. 3) Advance patient diet when medically feasible to regular diet 4) Continue current plan of care Expected Outcomes/Goals: 1) patient to receive nutrition support within 7 days 2) appetite and labs to improve 3) diet to advance 4) f/u in 3 days Plan discussed with: Patient, Spouse, Other Total Time (mins): 40 HUANG HOLLINS MD Aug 09, 2024 10:28
--- NOTE | 2024-08-09 12:32 | MEDREC ---
[facility] ASP Intervention Section I [facility] Intervention: Deescalate AB based on CS (PLEASE CONSIDER DE-ESCALATION BASED ON CULTURE RESULTS) MANDA MACDONALD PHARMACIST Aug 09, 2024 12:32
--- NOTE | 2024-08-09 12:43 | DVHPN2 ---
Progress Note Date Seen: Aug 09, 2024 Medical Necessity Reason Pt with a Central, PICC or Fol: No Subjective Patient reports: No new complaints Review of Systems: HEENT:Normal, CVS:Normal, RESPIRATORY:Normal, GI:Normal, :Normal, MSK:Normal, NEURO:Normal Objective vital signs Vital Sign Date Time Temp Pulse Resp B/P (MAP) Pulse Ox O2 Delivery O2 Flow Rate FiO2 08/09/24 09:41 128/77 08/09/24 09:00 98.3 54 19 99 98.3 08/09/24 08:00 Room Air* 0 21 Total Intake and Output 08/08/24 08/08/24 08/09/24 15:00 23:00 07:00 Intake Total 1264.378 ml 490 ml 350 ml Output Total 3550 ml 400 ml Balance 1264.378 ml -3060 ml -50 ml medications Current Medications Medications Dose Ordered Sig/Rosina Route Start Time Stop Time Status Last Admin Dose Admin Sodium Chloride 1,000 ml @ 60 mls/hr [id number] IV 08/04/24 22:45 Cancel Lorazepam 1 mg Q5MINP PRN IV 08/04/24 22:45 Levetiracetam 100 ml @ 400 mls/hr BID IV 08/05/24 06:00 08/09/24 10:39 400 MLS/HR Acetaminophen 650 mg Q6HP PRN PO 08/05/24 08:30 Hold Vancomycin HCl 0 ml @ 0 mls/hr UD IV 08/05/24 09:15 Ondansetron HCl 4 mg Q4HPRN PRN IV 08/05/24 09:45 Acetaminophen 650 mg Q6HP PRN DE 08/05/24 11:15 08/05/24 11:25 650 MG Pantoprazole Sodium 40 mg DAILY IV 08/06/24 10:00 08/09/24 09:39 40 MG Enoxaparin Sodium 40 mg DAILY SC 08/06/24 10:00 08/09/24 09:40 40 MG Metronidazole 100 ml @ 100 mls/hr Q8HR IV 08/05/24 22:00 08/09/24 05:35 100 MLS/HR Cefepime HCl 50 ml @ 12.5 mls/hr Q8HR IV 08/06/24 22:00 08/09/24 05:35 12.5 MLS/HR Lorazepam 1 mg ONCE IV 08/08/24 23:00 08/09/24 22:59 Lorazepam 1 mg Q5MINP PRN IV 08/08/24 23:00 Lisinopril 5 mg DAILY PO 08/09/24 10:00 08/09/24 09:41 5 MG Vancomycin HCl 250 ml @ 250 mls/hr Q8H IV 08/09/24 18:00 Examination: GENERAL:Normal, HEENT:Normal, NECK:Normal, LUNGS:Normal, CVS:Normal, ABDOMEN:Normal, MSK:Normal, SKIN:Normal, NEURO:Normal, :Normal laboratory and microbiology Laboratory Tests 08/09/24 09:30 Test 08/09/24 09:30 Range/Units Serum Glucose 83 74-106 mg/dL Microbiology Date/Time Source Procedure Growth Status 08/06/24 13:42 Blood Blood Culture - Preliminary NO GROWTH AFTER 48 HOURS OF INCUBATION. Resulted 08/06/24 12:58 Voided Urine Urine Culture - Final Complete 08/06/24 12:31 Sputum Gram Stain - Final Complete 08/06/24 12:31 Respiratory Culture - Final Streptococcus Group G Complete 08/05/24 17:26 Nose MRSA Screen - Final Complete Problem List/Assessment/Plan Problem List/Assessment/Plan #1 acute resp failure: cont acv, cpap trial- extubate #2 new onset seizure: on keppra #3 septic shock with ? aspiration pneumonia: augmentin #4 h/o traumatic brain injury #5 encephalopathy: monitor #7 h/o drug abuse dw girlfriend plan of care Plan discussed with: Patient My Orders My Orders Orders - ROXY RAZO MD Procedure Category Date Status Time Cpap/Sed Vacation Med ORDERS 08/08/24 Transmitted Weaning 12:00 Clear Liq Diet DIET 08/08/24 Transmitted Dinner Lisinopril Tablet PHA 08/09/24 In Process (Zestril Tablet) 10:00 Chest Xray 1 View XY 08/09/24 Resulted 06:20 Dietary Evaluation Review Comments: 1) If patient remains NPO for more than 7 days, consider TPN to meet at least 75% of estimated needs 2) If GI route is preferred, consider Glucerna 1.2 @ 60 mL/hr goal rate as tolerated. Flush with 200 mL free H2O Q6. Goal rate will provide 1728 kcals, 86g Pro and 1959 mL free H2O (including flushes) daily. TF regimen will meet ~85% estimated daily energy needs and 86% estimated daily protein needs. 3) Advance patient diet when medically feasible to regular diet 4) Continue current plan of care Expected Outcomes/Goals: 1) patient to receive nutrition support within 7 days 2) appetite and labs to improve 3) diet to advance 4) f/u in 3 days Date of Service: Aug 09, 2024 Billing Provider: ROXY RAZO MD Common Visit Codes: [id number] INP/OBS CARE(HIGH) ROXY RAZO MD Aug 09, 2024 12:43
[2024-08-09] MEDS ORDERED: VANCOMYCIN 1GM/250ML KIT 250 ML IV SCH (18:00)
[2024-08-09] MEDS: ACETAMINOPHEN 500 MG TAB or CAP PO PRN (18:13)
[2024-08-09] MEDS: AMOXICILLIN/CLAVUL 875 MG TAB PO SCH (21:20)
[2024-08-09] MEDS: levETIRAcetam 500 MG TAB PO SCH (21:20)
--- NOTE | 2024-08-09 22:29 | DVHEEG2 ---
Neurology EEG Procedural Note Procedural Note EXAM DATE: 08/09/2024 REFERRING DOCTOR: Dr. Hollins TECHNIQUE: Eighteen channels of EEG, 2 channels of EOG, and 1 channel of EKG were recorded using the International 10/20 system. CLINICAL DATA: The patient was referred for an EEG evaluation for the evidence of seizure disorder. MEDICATIONS: See chart BACKGROUND ACTIVITY: The record showed medium to high amplitude mixed delta and theta activity over both hemispheres ACTIVATION: Hyperventilation: Not done Photic Stimulation: No photic convulsive response Sleep: Not seen IMPRESSION: This is a moderately abnormal EEG, this EEG is seen in moderate cerebral dysfunction due to metabolic/hypoxic encephalopathy or medication effects, please correlate clinically. The EKG channel showed an irregular heart rate of 48 per minute[place] [address] HUANG HOLLINS MD Aug 09, 2024 22:29
[2024-08-10 01:00] VITALS: BP 114/72; PULSE 44; RESP 20; TEMP 98.1; O2SAT 99
[2024-08-10 05:00] VITALS: BP 142/74; PULSE 44; RESP 20; TEMP 98; O2SAT 95
[2024-08-10 08:00] VITALS: PULSE 56; PULSE 80; RESP 18; O2SAT 96
[2024-08-10 09:30] VITALS: BP 134/70; PULSE 50; RESP 18; TEMP 98.3; O2SAT 100
[2024-08-10 10:27] LABS: Basophils # (auto) 0 10 ^3/uL (0-0.2); Basophils % (auto) 0.2 % (0.0-2.0); Eosinophils # (auto) 0 10 ^3/uL (0-0.8); Hematocrit 44.9 % (41.0-53.0); Hemoglobin 15.7 g/dL (13.5-17.5); Lymphocytes # (auto) 1.8 10 ^3/uL (0.4-5.4); Lymphocytes % (auto) 14.3 % (10.0-50.0); Mean Corpuscular Hemoglobin 32.5 pg (28.0-32.0); Monocytes % (auto) 7.7 % (0.0-12.0); Neutrophils # (auto) 9.7 10 ^3/uL (1.6-8.6); Neutrophils % (auto) 77.8 % (37.0-80.0); Nucleated Red Blood Cells % 0.1 %; Platelet Count (auto) 349 10^3/uL (140-450); Red Blood Cells 4.83 10^6/uL (4.5-5.90); Red Cell Distribution Width 12.8 % (11.8-14.3); White Blood Cell 12.4 10^3/uL (4.4-10.8)
[2024-08-10 10:37] LABS: Sodium 141 mmol/L (136-145)
[2024-08-10 10:38] LABS: Anion Gap 7 (5-15); Calcium 9.7 mg/dL (8.7-10.4); Carbon Dioxide 27 mmol/L (20-31)
[2024-08-10 10:43] LABS: BUN/Creatinine Ratio 15.5 (10.0-20.0); Blood Urea Nitrogen 15 mg/dL (9-23)
[2024-08-10 10:59] LABS: Chloride 107 mmol/L (98-107); Glucose 127 mg/dL (74-106); Potassium 3.5 mmol/L (3.5-5.1)
--- NOTE | 2024-08-10 13:44 | DVHPN2 ---
Progress Note - Dictate Date Seen: Aug 10, 2024 Medical Necessity Reason Pt with a Central, PICC or Fol: No Subjective Mr. Pandya is a 38 years old right-handed gentleman with a history of hypertension, seizure disorder, the patient was brought to the [facility] on 08/04/2024 with altered mental status, possible seizure activity I have seen and examined the patient, case was discussed with Dr. Agudelo. He was awake, oriented x3 Urinalysis, 08/04/2024: Unremarkable UDS, 08/04/2024: Fentanyl, benzo, cannabinoids Plasma alcohol, 08/04/2024: < 3 Keppra, 08/05/2019 5:20.6 WBC/HB/PLT/MCV, 08/08/2024: 13/12.9/250/95.1, 08/09/2024: 17.9/15.1/314/93.3 PT/INR/PTT, 08/05/2024: 13/1.25/33.1 CMP, 08/08/2024: Unremarkable EEG, 08/09/2024: Moderately abnormal EEG Chest x-ray, 08/05/2024: Worsening multifocal left lung consolidative opacities suggestive of worsening pneumonia or edema Chest x-ray, 08/05/2024: Endotracheal tube in appropriate position. Multifocal left lung consolidative opacities Chest x-ray, 08/08/2024: Stable position of the support lines and tubes. Overall improved aeration in the bilateral lung doe. CT head, 08/04/2024: 1. No acute intracranial hemorrhage 2. No CT findings of territori MRI head, 08/08/2024: Subtle T2 hyperintensity in the bilateral globus pallidus, a nonspecific finding vital signs Vital Sign Date Time Temp Pulse Resp B/P (MAP) Pulse Ox O2 Delivery O2 Flow Rate FiO2 08/10/24 09:30 98.3 50 18 134/70 (91) 100 98.3 08/10/24 08:00 Room Air* 0 21 Total Intake and Output 08/09/24 08/09/24 08/10/24 15:00 23:00 07:00 Intake Total 250 ml 598 ml 600 ml Output Total 850 ml Balance 250 ml 598 ml -250 ml medications Current Medications Medications Dose Ordered Sig/Rosina Route Start Time Stop Time Status Last Admin Dose Admin Sodium Chloride 1,000 ml @ 60 mls/hr [id number] IV 08/04/24 22:45 Cancel Ondansetron HCl 4 mg Q4HPRN PRN IV 08/05/24 09:45 Acetaminophen 650 mg Q6HP PRN [place] 08/05/24 11:15 Hold 08/05/24 11:25 650 MG Lorazepam 1 mg Q5MINP PRN IV 08/08/24 23:00 Levetiracetam 500 mg BID PO 08/09/24 22:00 08/10/24 09:51 500 MG Amoxicillin/ Clavulanate Potassium 875 mg Q12HR PO 08/09/24 22:00 08/10/24 09:51 875 MG Acetaminophen 650 mg Q6HP PRN PO 08/09/24 17:30 08/09/24 18:13 650 MG objective General: the patient is well developed and nourished. No acute distress. MENTAL STATUS: Awake and alert. Oriented to person, place, time SPEECH, LANGUAGE, HIGHER CORTICAL FUNCTION: no aphasia or dysathria. CRANIAL NERVES: Pupils are equal, round and reactive. EOMs full and conjugate. No nystagmus. Facial sensation intact in all three divisions bilaterally. Mandibular strength intact. Facial muscles symmetrical and strength intact. SENSATION: Sensation to touch and pinprick is normal. MOTOR: Normal tone in the upper and lower extremity. Normal muscle bulk. No fasciculations. No abnormal movements or posturing. Muscle strength of the major groups in the extremities is 5/5. REFLEXES: Deep tendon reflexes are symmetrical. No pathological reflexes. CEREBELLAR/COORDINATION: Finger to nose is normal bilaterally. laboratory and microbiology Laboratory Tests 08/10/24 10:13 Test 08/10/24 10:13 Range/Units Serum Glucose 127 H 74-106 mg/dL Problem List Status epileptics Grand mal seizure Chronic recurrent closed head injury ? Alcohol problem Meningitis, less likely He does not drive Assessment/Plan Monitoring Supportive treatment Telemetry Follow-up EEG Keppra 500 mg b.i.d. Ativan for seizure breakthrough IV antibiotics Up to chair Avoid sleep deprivation Avoid alcohol and street drug Avoid skipping seizure medication Common seizure triggers discussed Follow up with his doctors on discharge SAKSHI This medical document was created using an electronic medical record system with [employer] dictation system. Although this document has been carefully reviewed, there may still be some phonetic and typographical errors. These areas are purely typographical due to imperfections of the software programs, and do not reflect any compromise in the patient's medical care. Prognosis poor Dietary Evaluation Review Comments: 1) If patient remains NPO for more than 7 days, consider TPN to meet at least 75% of estimated needs 2) If GI route is preferred, consider Glucerna 1.2 @ 60 mL/hr goal rate as tolerated. Flush with 200 mL free H2O Q6. Goal rate will provide 1728 kcals, 86g Pro and 1959 mL free H2O (including flushes) daily. TF regimen will meet ~85% estimated daily energy needs and 86% estimated daily protein needs. 3) Advance patient diet when medically feasible to regular diet 4) Continue current plan of care Expected Outcomes/Goals: 1) patient to receive nutrition support within 7 days 2) appetite and labs to improve 3) diet to advance 4) f/u in 3 days Plan discussed with: Other HUANG HOLLINS MD Aug 10, 2024 13:44
--- NOTE | 2024-08-10 13:56 | DVHDS2 ---
Discharge Summary Date of Admission Aug 04, 2024 at 22:40 Date of Discharge: Aug 10, 2024 Labs/Diagnostic Data: Laboratory Results Test 08/10/24 10:13 08/09/24 06:30 08/08/24 05:49 08/08/24 03:00 White Blood Count 12.4 10^3/uL (4.4-10.8) Red Blood Count 4.83 10^6/uL (4.5-5.90) Hemoglobin 15.7 g/dL (13.5-17.5) Hematocrit 44.9 % (41.0-53.0) Mean Corpuscular Volume 93.0 fL (80.0-100.0) Mean Corpuscular Hemoglobin 32.5 pg (28.0-32.0) Mean Corpuscular Hemoglobin Concent 35.0 g/dL (32.0-36.0) Red Cell Distribution Width 12.8 % (11.8-14.3) Platelet Count 349 10^3/uL (140-450) Mean Platelet Volume 7.6 fL (6.9-10.8) Neutrophils (%) (Auto) 77.8 % (37.0-80.0) Lymphocytes (%) (Auto) 14.3 % (10.0-50.0) Monocytes (%) (Auto) 7.7 % (0.0-12.0) Eosinophils (%) (Auto) 0.0 % (0.0-7.0) Basophils (%) (Auto) 0.2 % (0.0-2.0) Neutrophils # (Auto) 9.7 10 ^3/uL (1.6-8.6) Lymphocytes # (Auto) 1.8 10 ^3/uL (0.4-5.4) Monocytes # (Auto) 1.0 10 ^3/uL (0-1.3) Eosinophils # (Auto) 0 10 ^3/uL (0-0.8) Basophils # (Auto) 0 10 ^3/uL (0-0.2) Nucleated Red Blood Cells 0.1 % Sodium Level 141 mmol/L (136-145) Potassium Level 3.5 mmol/L (3.5-5.1) Chloride Level 107 mmol/L (98-107) Carbon Dioxide Level 27 mmol/L (20-31) Anion Gap 7 (5-15) Blood Urea Nitrogen 15 mg/dL (9-23) Creatinine 0.97 mg/dL (0.700-1.30) Glomerular Filtration Rate Calc 101 mL/min (>90) BUN/Creatinine Ratio 15.5 (10.0-20.0) Serum Glucose 127 mg/dL (74-106) Calcium Level 9.7 mg/dL (8.7-10.4) Vancomycin Level Trough < 3.0 ug/mL (5-10) Urine Color Light-yellow (Yellow) Urine Clarity Clear (Clear) Urine pH 7.0 (5.0-9.0) Urine Specific [place] 1.015 (1.001-1.035) Urine Protein Negative (Negative) Urine Ketones Negative (Negative) Urine Blood Negative /uL (Negative) Urine Nitrite Negative (Negative) Urine Bilirubin Negative (Negative) Urine Urobilinogen Normal mg/dL (Negative) Urine Leukocyte Esterase Negative /uL (Negative) Urine RBC <1 /hpf (0 - 3) Urine Microscopic WBC 1 /HPF (0-3) Urine Squamous Epithelial Cells None seen /hpf (<5) Urine Bacteria None seen /hpf (None Seen) Urine Glucose Normal mg/dL (Normal) Blood Gas Specimen Type Arterial Blood Gas Sample Site Right radial Blood Gas Patient Temperature 37.0 Arterial Blood Date Drawn [id number] Arterial Blood pH 7.449 (7.350-7.450) Arterial Blood Partial Pressure CO2 39.9 mmHg (35.0-48.0) Arterial Blood Partial Pressure O2 93.2 mmHg (83.0-108.0) Arterial Blood HCO3 27.0 mmol/L (21.0-28.0) Arterial Blood Oxygen Saturation 97.3 % (94.0-98.0) Arterial Blood Base Excess 2.9 mmol/L (-2.0-3.0) Arterial Blood Oxyhemoglobin 96.8 % (94.0-98.0) Arterial Blood Carboxyhemoglobin 0.3 % (0.5-1.5) Arterial Blood Methemoglobin 0.2 % (0.0-1.5) Scar Test Modified Blood Gas Total Hemoglobin 13.70 g/dL (13.5-17.5) Blood Gas Set Respiration Rate 20.0 Blood Gas Modality Vent - ac FiO2 % 30.0 Blood Gas Tidal Volume 500.0 Blood Gas PEEP or CPAP 5.0 Total Bilirubin 0.5 mg/dL (0.2-1.0) Aspartate Amino Transferase (AST) 11 U/L (13-40) Alanine Aminotransferase (ALT) 12 U/L (7-40) Alkaline Phosphatase 51 U/L (46-116) Total Protein 5.6 g/dL (5.7-8.2) Albumin 3.7 g/dL (3.2-4.8) Test 08/07/24 16:11 08/07/24 07:59 08/06/24 13:45 08/05/24 15:39 Magnesium Level 2.2 mg/dL (1.6-2.6) POC Glucose 140 mg/dl (70-106) Lactic Acid Level 0.9 mmol/L (0.4-2.0) Prothrombin Time 13.0 sec (9.3-11.8) Prothrombin Time INR 1.25 (0.9-1.15) Activated Partial Thromboplast Time 33.1 SEC (24.5-34.5) Test 08/05/24 11:22 08/05/24 09:49 08/05/24 09:15 08/05/24 08:10 Blood Gas EPAP 5 Blood Gas IPAP 10 Ammonia 53 umol/L (11-32) Blood Gas Liter Flow 15.00 Erythrocyte Sedimentation Rate 4 mm/hr (0-20) Hemoglobin A1c 4.6 % A1C (<5.7) Creatine Kinase 764 U/L (46-171) C-Reactive Protein High Sensitivity 2.41 mg/dL (<1.0) Thyroid Stimulating Hormone (TSH) 1.51 uIU/mL (0.55-4.78) Test 08/04/24 22:41 08/04/24 22:05 08/04/24 20:30 08/04/24 00:27 Blood Gas Spontaneous Rate 18 Levetiracetam Level 20.6 ug/mL (10.0-40.0) Plasma/Serum Blood Alcohol < 3.0 mg/dL (<10) Troponin I High Sensitivity 19 ng/L (</=54) Prolactin 18.76 ng/mL (2.1-17.7) Urine Opiates Screen Neg (NEGATIVE) Urine Fentanyl Screen Pos (NEGATIVE) Urine Barbiturates Screen Neg (NEGATIVE) Urine Phencyclidine Screen Neg (NEGATIVE) Urine Amphetamines Screen Neg (NEGATIVE) Urine Benzodiazepines Screen Pos (NEGATIVE) Urine Cocaine Screen Neg (NEGATIVE) Urine Cannabinoids Screen Pos (NEGATIVE) Other Laboratory Tests 08/10/24 10:13 Brief Hx & Hospital Course: SEE DICTATED NOTE Condition at Discharge: Fair Final Diagnosis/Problems List SEIZURE Discharge Disposition: Home Discharge Instruct/Medications Diet: Regular Activity: No Restrictions, As Tolerated Follow [facility]Ref[facility] Medications: SCRIPT TO PHARMACY Discharge Statement: "Patient was advised to return to the ER or call 911 if any headaches, dizziness, shortness of breath, chest pain, abdominal pain, bleeding, fevers, or worsening of medical condition. Patient was counseled about treatment plan, medications, possible side effects, patientverbalized understanding. All questions were answered to the best of my ability. This discharge took greater then 30 minutes in planning, reviewing documentation, counseling the patient, and discussing with other team members." ASSESSMENT ASSESSMENT Assessment SEIZURE Date of Service: Aug 10, 2024 Billing Provider: ROXY RAZO MD Common Visit Codes: [id number]-GVX/OBS DISCH DAY >30min ROXY RAZO MD Aug 10, 2024 13:56
[2024-08-10] MEDS ORDERED: LEVE500T40 PO (13:57)
[2024-08-10] MEDS ORDERED: AUG875T PO (13:57)
--- NOTE | 2024-08-10 14:14 | DVHDS ---
DATE OF DISCHARGE: 08/10/2024 HISTORY OF PRESENT ILLNESS: The patient is a 38-year-old gentleman who was admitted after he had a witnessed seizure and difficulty breathing. The patient had initial chest compressions and subsequently was intubated. The patient has history of previous traumatic brain injury. HOSPITAL COURSE: The patient was seen in Neurology consult by Dr. Mejia. The patient had a brain MRI that showed a subtle T2 hyperintensity. A CT head that was done was unremarkable. The patient's tox screen was positive for fentanyl as well as cannabis. The patient was successfully extubated. He had aspiration pneumonia for which he was given antibiotics. The patient had a CT of abdomen and pelvis that showed ground glass opacities in lung bases. The patient will now be discharged home to be on Augmentin 875 mg p.o. b.i.d. for 7 days, Keppra 500 mg p.o. b.i.d. The patient had EEG that was moderately abnormal. The patient also has been using herbal medication called Credo, which has a potential for addiction. FINAL DIAGNOSES: Therefore, * Seizures. * Acute respiratory failure, status post intubation. * Aspiration pneumonia with sepsis with septic shock. * Encephalopathy. * History of opiate abuse, likely secondary to abuse of Credo. Time spent in discharge planning and review of plan with the patient and family at bedside was 39 minutes. MD MONICA Augustine/JANI TID: [id number] RECEIPT: [id number]
[2024-08-10 14:55] VITALS: BP 128/77; TEMP 36.8
--- NOTE | 2024-08-12 23:09 | DVHEEG2 ---
Neurology EEG Procedural Note Procedural Note EXAM DATE: 08/10/2024 REFERRING DOCTOR: Dr. Hollins TECHNIQUE: Eighteen channels of EEG, 2 channels of EOG, and 1 channel of EKG were recorded using the International 10/20 system. CLINICAL DATA: The patient was referred for an EEG evaluation for the evidence of seizure disorder. MEDICATIONS: See the chart BACKGROUND ACTIVITY: He was asleep during most of the recording, during brief arousals, the background activity appeared to be fairly regulated 8 Hz rhythmic waveforms, symmetrically distributed over both posterior quadrants and was reactive to external stimuli. ACTIVATION: Hyperventilation: Not done Photic Stimulation: Not done Sleep: Noticed IMPRESSION: This is a normal EEG. No focal, lateralized, or epileptiform features are noted. If clinically indicated to rule out a seizure disorder, recommend repeat EEG with sleep deprivation. The EKG channel showed a regular heart rate of 48/min[place] [address] HUANG HOLLINS MD Aug 12, 2024 23:09
== END 2024-08-10 16:00 | disposition left against medical advice (07) | DRG 871 ==
LOC: ER 19:59 → EDBD 19:59 → OVERFLOW 22:40 → ICU WEST 08-05 16:00 → TELE-WESTW 08-08 22:38
PROVIDERS: ADMIT Internal Medicine; ATTEND Internal Medicine
PROC: 02HV33Z Insertion of Infusion Device into Superior Vena Cava, Percutaneous Approach (ICD-10-PCS; principal; 2024-08-05)
PROC: 0BH17EZ Insertion of Endotracheal Airway into Trachea, Via Natural or Artificial Opening (ICD-10-PCS; 2024-08-05)
PROC: 5A1945Z Respiratory Ventilation, 24-96 Consecutive Hours (ICD-10-PCS; 2024-08-05)
PROC: 5A09357 Assistance with Respiratory Ventilation, Less than 24 Consecutive Hours, Continuous Positive Airway Pressure (ICD-10-PCS; 2024-08-05)
PROC: 0B9F8ZX Drainage of Right Lower Lung Lobe, Via Natural or Artificial Opening Endoscopic, Diagnostic (ICD-10-PCS; 2024-08-06)
PROC: 0BC38ZZ Extirpation of Matter from Right Main Bronchus, Via Natural or Artificial Opening Endoscopic (ICD-10-PCS; 2024-08-06)
DX: A41.9 Sepsis, unspecified organism (principal); G92.8 Other toxic encephalopathy; J69.0 Pneumonitis due to inhalation of food and vomit; J96.01 Acute respiratory failure with hypoxia; R65.21 Severe sepsis with septic shock; J18.9 Pneumonia, unspecified organism; M62.82 Rhabdomyolysis; E72.20 Disorder of urea cycle metabolism, unspecified; E83.42 Hypomagnesemia; F12.10 Cannabis abuse, uncomplicated; E16.2 Hypoglycemia, unspecified; G40.401 Other generalized epilepsy and epileptic syndromes, not intractable, with status epilepticus; F17.200 Nicotine dependence, unspecified, uncomplicated; F11.10 Opioid abuse, uncomplicated; I10 Essential (primary) hypertension; R00.1 Bradycardia, unspecified; Z79.891 Long term (current) use of opiate analgesic; Z79.899 Other long term (current) drug therapy; Z79.1 Long term (current) use of non-steroidal anti-inflammatories (NSAID); Z82.49 Family history of ischemic heart disease and other diseases of the circulatory system; Z90.49 Acquired absence of other specified parts of digestive tract; Z87.820 Personal history of traumatic brain injury
CPT/HCPCS: 36415; 36556; 36600; 70450; 70551; 71045; 74176; 80048; 80053; 80202; 80307; 80320; 81001; 82140; 82542; 82550; 82805; 82962; 83036; 83605; 83735; 84132; 84146; 84443; 84484; 85025; 85610; 85652; 85730; 86141; 87040; 87070; 87081; 87086; 87205; 93005; 93306; 94002; 94003; 94660; 95819; 96365; 96375; 97163; 99291; G0378; J0692; J1885; J2405; J2470; J2704; J3480; J3490; J7060